=== PATIENT | male | born 1975 | race Caucasian/White ===

== ENCOUNTER → 2016-11-26 | Outpatient (REF) | payer MEDICARE, MEDICAID ==
[~2016-11-26] MED LIST: /HALO5TAB PO; ABIL400I IM; ADVAIR 100/50 INH; AMBI10TA; BENADRYL PO; BUSP10TA PO; CHLO0.129 SSP; COGE1INJ IJ; COGE1INJ PO; COGENTIN PD; COGENTIN PO; DEPA250T2 PO; DEPA250T32 PO; DEPA500T2 PO; EFFEXOR XR PO; ELIQ5TAB PO; FLOM5CAP PO; FLUO20CA8 PO; FLUO20CA9 PO; FLUP10TA PO; GABA600T PO; GEOD40CA OR; HALD100I2 IM; HALD5INJ2 PO; HALO10AM IM; HALO10TA4 OR; Haldol Decanoate IM; IBUP-1114 PO; KLON0.5T; LAMI50TA2 PO; LATU40TA PO; MULTCAP PO; NEUR600T PO; NICO2GUM8 PO; OMEP40CA2 PO; PERP4TA PO; PREV15CA OR; PREV30CA6 PO; PRIL20CA; PRIL20CA OR; PROP1TAB29 PO; PROP20TA5 PO; PROTONIX40 PO; PROZ20CA11 PO; PROZ40CA PO; RISP1TAB; RISP2TAB30 PO; RISP3TAB18 PO; RISP3TAB3 PO; RISP4TAB33 PO; RISPERDAL CONSTA; SERO50TA PO; SYNT25TA PO; TAB-TAB PO; TAMS0.4C2 PO; TRAV04OPD OU; TRAZ50TA OR; TRAZ50TA2 PO; TRAZ50TA4 PO; TRILAFON PO; VENL37TA PO; VENTAER IN; VIAGRA100 PO; VITA50TA12 OR; ZANT1TAB PO; ZANTAC150 PO; ZOCO10TA; ZOCO20TA; ZOCOR; ZOLO100T; ZOLO100T OR; ZOLO50TA OR; ZOLOFT PO; [UNRECOGNIZED DRUG - OTHER]; [UNRECOGNIZED DRUG - OTHER]; cogentin PO
== END ==
LOC: M LABDRAWC 11:16
PROVIDERS: ATTEND Nurse Practitioner Psychiatric/Mental Health
DX: Z51.81 Encounter for therapeutic drug level monitoring (principal); Z79.899 Other long term (current) drug therapy

== ENCOUNTER 2017-02-07 17:21 | Inpatient (IN) | payer MEDICARE, MEDICAID ==
[~2017-02-07] VITALS: Ht 170.2 cm; Wt 88.7 kg
[2017-02-07 18:57] LABS: MEAN CORPUSCULAR HEMOGLOBIN 30.2 pg (27.0-33.0); MEAN CORPUSCULAR HGB CONC 34.6 g/dl (32.0-36.5); MEAN CORPUSCULAR VOLUME 87.4 fl (80.0-96.0); RED CELL DISTRIBUTION WIDTH 12.9 % (11.5-14.5)
[2017-02-07 19:24] LABS: ALBUMIN 3.7 GM/DL (3.2-5.2); ALBUMIN/GLOBULIN RATIO 1.19 (1.00-1.93); ALKALINE PHOSPHATASE 64 U/L (45-117); ALT/SGPT 23 U/L (12-78); ANION GAP 6 MEQ/L (8-16); AST/SGOT 15 U/L (15-37); BILIRUBIN,DIRECT 0.2 MG/DL (0.0-0.2); BILIRUBIN,TOTAL 0.3 MG/DL (0.2-1.0); BLOOD UREA NITROGEN 10 MG/DL (7-18); CALCIUM LEVEL 8.4 MG/DL (8.5-10.1); CARBON DIOXIDE LEVEL 29 MEQ/L (21-32); CHLORIDE LEVEL 104 MEQ/L (98-107); GLOMERULAR FILTRATION RATE > 60.0 (>60); GLUCOSE, FASTING 103 MG/DL (70-105); POTASSIUM SERUM 4.1 MEQ/L (3.5-5.1); SODIUM LEVEL 139 MEQ/L (136-145); TOTAL PROTEIN 6.8 GM/DL (6.4-8.2)
[2017-02-07 20:15] LABS: METHADONE URINE NEGATIVE (NEGATIVE)
[2017-02-07] MEDS ORDERED: MOM 30ML SUSPENSION UDC PO PRN (23:30)
[2017-02-07] MEDS ORDERED: ACETAMINOPHEN TAB 650MG DOSE (2X325MG) PO PRN (23:30)
[2017-02-07] MEDS ORDERED: MAALOX 30 ML SUSP *UDC PO PRN (23:30)
[2017-02-07] MEDS ORDERED: traZODone 50 MG TAB PO PRN (23:30)
[2017-02-07] MEDS ORDERED: LORazepam 1 MG TAB PO PRN (23:30)
[2017-02-07] MEDS ORDERED: diphenhydrAMINE 25 MG CAP PO PRN (23:30)
[2017-02-07] MEDS ORDERED: HALOPERIDOL 5 MG TAB PO PRN (23:30)
[2017-02-08] MEDS ORDERED: LATU80TA PO (00:46)
[2017-02-08] MEDS ORDERED: TRAV04OPD OU (00:46)
[2017-02-08] MEDS ORDERED: DIVA250T PO (00:46)
[2017-02-08] MEDS ORDERED: FLUO1TAB3 PO (00:46)
[2017-02-08 03:00] VITALS: BP 119/80
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
[2017-02-08 18:00] VITALS: BP 128/64
[2017-02-08] MEDS: LATANOPROST 0.005% OPHTH SOLN 2.5 ML OU SCH (20:57)
[2017-02-08] MEDS ORDERED: DIVALPROEX 250MG *ER* TAB PO SCH (21:00)
[2017-02-08] MEDS: LURASIDONE HCL 40 MG TAB (LATUDA) PO SCH (21:16)
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
[2017-02-08] MEDS: DIVALPROEX 250 MG TAB PO SCH (21:48)
[2017-02-09 06:31] VITALS: BP 116/67
[2017-02-09] MEDS: DIVALPROEX 250 MG TAB PO SCH ×2 (08:42→21:13)
[2017-02-09] MEDS: FLUoxetine 20 MG CAP PO SCH (08:42)
--- NOTE | 2017-02-09 09:48 | ECGEPIP ---
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
--- NOTE | 2017-02-09 15:38 | IPN ---
DATE: 02/09/2017 I met Brandt Bar today and reviewed his history. As per Grecia Byrnes, he states to me he was at transitional living, and he states he was brought in here for yelling and arguing with staff. He has complaints about the staff at the [facility] in [place] and some of the patients. He states he is presently on Depakote and Latuda, as well as fluoxetine and likes his medications. MENTAL STATUS EXAMINATION: He has rapid speech and loose associations. He is denying hallucinations, delusions, obsessions, compulsions and phobias. He states he has been verbally aggressive and does not want mormon crammed down his throat. His speech is loud. His thought process shows loose associations. He is not complaining of any hallucinations or delusions. Judgment and insight are fair. He is fully oriented. Remote and recent memory are intact. Attention and concentration are good. His fund of knowledge is intact. His mood seems high. His affect seems neutral to bright. No change in medication at this time, though it is possible that Prozac may have to be held. I will discuss this with Grecia Byrnes when she returns. DIAGNOSIS: Bipolar disorder with psychotic features.
[2017-02-09] MEDS: LURASIDONE HCL 40 MG TAB (LATUDA) PO SCH (17:43)
[2017-02-09 18:00] VITALS: BP 125/62
[2017-02-09] MEDS: LATANOPROST 0.005% OPHTH SOLN 2.5 ML OU SCH (21:13)
[2017-02-10 06:23] VITALS: BP 103/55
[2017-02-10] MEDS: DIVALPROEX 250 MG TAB PO SCH ×2 (08:14→21:28)
[2017-02-10] MEDS: FLUoxetine 20 MG CAP PO SCH (08:14)
--- NOTE | 2017-02-10 10:23 | IPN ---
DATE: 02/10/2017 Reviewed his history yesterday and talked with him today. He is mostly walking the halls. His mood is good. He is mostly interested in having a change of living situation. MENTAL STATUS EXAMINATION: His speech is somewhat rapid. He denies hallucinations or delusions, obsessions, compulsions and phobias. His speech is mildly increased in volume. His thought process shows some loose associations. His judgment and insight are fair. He is fully oriented. His remote and recent memory are intact. Attention and concentration are good. No change in medication was seen to be made at this time. He continues on fluoxetine 20 mg, Depakote 750 mg twice a day, Latuda 80 mg daily. DIAGNOSIS: Schizophrenia. History of polysubstance use disorder.
[2017-02-10] MEDS: LURASIDONE HCL 40 MG TAB (LATUDA) PO SCH (17:59)
[2017-02-10 18:00] VITALS: BP 121/61
[2017-02-10] MEDS: LATANOPROST 0.005% OPHTH SOLN 2.5 ML OU SCH (21:28)
[2017-02-11 06:16] VITALS: BP 125/63
[2017-02-11] MEDS: FLUoxetine 20 MG CAP PO SCH (07:58)
[2017-02-11] MEDS: DIVALPROEX 250 MG TAB PO SCH ×2 (07:58→21:51)
--- NOTE | 2017-02-11 09:33 | IPN ---
DATE: 02/11/2017 I spoke with Brandt Bar today. He continues to walk the halls. His mood is good. He continues to be interested in having a change of living situation and has no other complaint at this time. Eye contact is variable. MENTAL STATUS EXAMINATION: He continues to look somewhat disheveled. He is in hospital garb. His speech continues mildly rapid. He is presently denying hallucinations, delusions, obsessions, compulsions, and phobias. He does not appear to be responding to internal stimuli. His speech is of normal volume. His thought process does not show any loose associations at this time. Judgment and insight are fair. He is fully oriented. His remote and recent memory are intact. His attention and concentration are good. I have no plans to change his medication. He continues on fluoxetine 20 mg, Depakote 70 mg twice a day, Latuda 80 mg daily. DIAGNOSIS: Schizophrenia. Rule out schizoaffective disorder. History of polysubstance use disorder. MTDD
[2017-02-11 18:00] VITALS: BP 123/86
[2017-02-11] MEDS: LURASIDONE HCL 40 MG TAB (LATUDA) PO SCH (18:16)
[2017-02-11] MEDS: LATANOPROST 0.005% OPHTH SOLN 2.5 ML OU SCH (21:51)
[2017-02-12 06:42] VITALS: BP 111/72
[2017-02-12] MEDS: DIVALPROEX 250 MG TAB PO SCH ×2 (09:00→21:57)
[2017-02-12] MEDS: FLUoxetine 20 MG CAP PO SCH (09:01)
[2017-02-12] MEDS: LURASIDONE HCL 40 MG TAB (LATUDA) PO SCH (18:01)
[2017-02-12 18:20] VITALS: BP 132/82
[2017-02-12] MEDS: LATANOPROST 0.005% OPHTH SOLN 2.5 ML OU SCH (21:57)
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
[2017-02-13 06:19] VITALS: BP 119/68
[2017-02-13] MEDS: DIVALPROEX 250 MG TAB PO SCH ×2 (09:16→22:46)
[2017-02-13] MEDS: FLUoxetine 20 MG CAP PO SCH (09:16)
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
[2017-02-13 18:00] VITALS: BP 146/68
[2017-02-13] MEDS: LURASIDONE HCL 40 MG TAB (LATUDA) PO SCH (18:57)
[2017-02-13] MEDS: LATANOPROST 0.005% OPHTH SOLN 2.5 ML OU SCH (22:46)
[2017-02-14 06:14] VITALS: BP 134/74
[2017-02-14] MEDS: DIVALPROEX 250 MG TAB PO SCH ×2 (08:02→20:21)
[2017-02-14] MEDS: FLUoxetine 20 MG CAP PO SCH (08:02)
[2017-02-14 18:00] VITALS: BP 129/76
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
[2017-02-14] MEDS: LURASIDONE HCL 40 MG TAB (LATUDA) PO SCH (18:55)
[2017-02-14] MEDS: LATANOPROST 0.005% OPHTH SOLN 2.5 ML OU SCH (20:22)
[2017-02-15] MEDS: FLUoxetine 20 MG CAP PO SCH (08:02)
[2017-02-15] MEDS: DIVALPROEX 250 MG TAB PO SCH ×2 (08:03→21:49)
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
[2017-02-15] MEDS: LURASIDONE HCL 40 MG TAB (LATUDA) PO SCH (17:59)
[2017-02-15 18:00] VITALS: BP 122/75
[2017-02-15] MEDS: LATANOPROST 0.005% OPHTH SOLN 2.5 ML OU SCH (21:50)
[2017-02-16 06:00] VITALS: BP 131/76
[2017-02-16] MEDS: DIVALPROEX 250 MG TAB PO SCH ×2 (08:30→22:01)
[2017-02-16] MEDS: FLUoxetine 20 MG CAP PO SCH (08:30)
[2017-02-16] MEDS: LURASIDONE HCL 40 MG TAB (LATUDA) PO SCH (17:45)
[2017-02-16 18:00] VITALS: BP 132/58
[2017-02-16] MEDS: LATANOPROST 0.005% OPHTH SOLN 2.5 ML OU SCH (22:01)
[2017-02-17 06:36] VITALS: BP 126/75
[2017-02-17] MEDS: FLUoxetine 20 MG CAP PO SCH (08:29)
[2017-02-17] MEDS: DIVALPROEX 250 MG TAB PO SCH ×2 (08:29→21:32)
[2017-02-17] MEDS: LURASIDONE HCL 40 MG TAB (LATUDA) PO SCH (17:41)
[2017-02-17 18:00] VITALS: BP 125/75
[2017-02-17] MEDS: LATANOPROST 0.005% OPHTH SOLN 2.5 ML OU SCH (21:32)
[2017-02-18 06:47] VITALS: BP 136/63
[2017-02-18] MEDS: FLUoxetine 20 MG CAP PO SCH (08:25)
[2017-02-18] MEDS: DIVALPROEX 250 MG TAB PO SCH (08:25)
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
[2017-02-18] MEDS ORDERED: FLUO20CA9 PO (12:34)
[2017-02-18] MEDS ORDERED: LATU40TA PO (12:34)
[2017-02-18] MEDS ORDERED: DEPA250T32 PO (12:34)
== END 2017-02-18 13:45 | disposition home or self-care (01) | DRG 885 ==
LOC: M ED 18:16 → M ED INP 23:24 → M PSY 02-08 02:58
PROVIDERS: ADMIT Psychiatry & Neurology Child & Adolescent Psychiatry; ATTEND Internal Medicine Addiction Medicine
DX: F20.9 Schizophrenia, unspecified (principal); F17.210 Nicotine dependence, cigarettes, uncomplicated; Z63.4 Disappearance and death of family member; H40.9 Unspecified glaucoma; K21.9 Gastro-esophageal reflux disease without esophagitis; E78.5 Hyperlipidemia, unspecified; N40.0 Benign prostatic hyperplasia without lower urinary tract symptoms; G47.33 Obstructive sleep apnea (adult) (pediatric); M25.50 Pain in unspecified joint; Z79.899 Other long term (current) drug therapy; Z91.018 Allergy to other foods; Z86.711 Personal history of pulmonary embolism; Z81.1 Family history of alcohol abuse and dependence; Z81.8 Family history of other mental and behavioral disorders

== ENCOUNTER 2017-03-11 10:23 | Inpatient (IN) | payer MEDICARE, MEDICAID ==
[~2017-03-11] VITALS: Ht 170.2 cm; Wt 82.3 kg
[~2017-03-11 10:23] MED LIST changes: +DIVA250T PO; +FLUO1TAB3 PO; +LATU80TA PO
[2017-03-11 10:59] LABS: MEAN CORPUSCULAR HGB CONC 33.6 g/dl (32.0-36.5); MEAN CORPUSCULAR VOLUME 89.2 fl (80.0-96.0); RED CELL DISTRIBUTION WIDTH 12.8 % (11.5-14.5); WHITE BLOOD COUNT 6.1 K/mm3 (4.0-10.0)
[2017-03-11 11:14] LABS: METHADONE URINE NEGATIVE (NEGATIVE)
[2017-03-11 11:25] LABS: ALBUMIN 3.4 GM/DL (3.2-5.2); ALBUMIN/GLOBULIN RATIO 1.36 (1.00-1.93); ALKALINE PHOSPHATASE 45 U/L (45-117); ALT/SGPT 27 U/L (12-78); ANION GAP 9 MEQ/L (8-16); AST/SGOT 26 U/L (15-37); BILIRUBIN,DIRECT 0.2 MG/DL (0.0-0.2); BILIRUBIN,TOTAL 0.6 MG/DL (0.2-1.0); BLOOD UREA NITROGEN 5 MG/DL (7-18); CARBON DIOXIDE LEVEL 25 MEQ/L (21-32); CHLORIDE LEVEL 99 MEQ/L (98-107); CREATININE FOR GFR 0.78 MG/DL (0.70-1.30); GLOMERULAR FILTRATION RATE > 60.0 (>60); GLUCOSE, FASTING 77 MG/DL (70-105); POTASSIUM SERUM 3.9 MEQ/L (3.5-5.1); SODIUM LEVEL 133 MEQ/L (136-145); TOTAL PROTEIN 5.9 GM/DL (6.4-8.2)
[2017-03-11] MEDS ORDERED: HYDR1CAP25 PO (13:57)
[2017-03-11] MEDS ORDERED: LATU80TA PO (13:57)
[2017-03-11] MEDS ORDERED: FLUO20CA8 PO (13:57)
[2017-03-11] MEDS ORDERED: IBUP40TA PO (13:57)
[2017-03-11] MEDS ORDERED: DIVA250T PO (13:57)
[2017-03-11] MEDS ORDERED: LAMI25TA PO (13:57)
[2017-03-11 16:29] VITALS: BP 113/63
[2017-03-11] MEDS ORDERED: IBUPROFEN 400 MG TAB PO PRN (17:45)
[2017-03-11] MEDS ORDERED: hydrOXYzine 25 MG TAB PO PRN (17:45)
[2017-03-11] MEDS ORDERED: MAALOX 30 ML SUSP *UDC PO PRN (17:45)
[2017-03-11] MEDS ORDERED: traZODone 50 MG TAB PO PRN (17:45)
[2017-03-11] MEDS ORDERED: MOM 30ML SUSPENSION UDC PO PRN (17:45)
[2017-03-11] MEDS ORDERED: LURASIDONE HCL 40 MG TAB (LATUDA) PO SCH (18:00)
[2017-03-11] MEDS ORDERED: lamoTRIgine 25 MG TAB PO SCH (21:00)
[2017-03-11] MEDS: DIVALPROEX 250 MG TAB PO SCH (21:30)
[2017-03-11] MEDS: LATANOPROST 0.005% OPHTH SOLN 2.5 ML OU SCH (21:30)
[2017-03-12 06:50] VITALS: BP 110/64
[2017-03-12] MEDS: DIVALPROEX 250 MG TAB PO SCH ×2 (09:00→21:55)
[2017-03-12] MEDS: FLUoxetine 20 MG CAP PO SCH (09:11)
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
[2017-03-12] MEDS: CHLORHEXIDINE GLUCONATE 0.12 % 15ML UDC (PERIDEX ORAL RINSE) SSP SCH ×3 (11:30→21:56)
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
[2017-03-12] MEDS ORDERED: BENZTROPINE 1 MG TAB PO PRN (16:30)
[2017-03-12 18:00] VITALS: BP 135/72
[2017-03-12] MEDS ORDERED: LURASIDONE HCL 40 MG TAB (LATUDA) PO SCH (18:00)
[2017-03-12] MEDS ORDERED: PERPHENAZINE 2 MG TAB PO SCH (21:00)
[2017-03-12] MEDS: LATANOPROST 0.005% OPHTH SOLN 2.5 ML OU SCH (21:56)
[2017-03-12] MEDS: PERPHENAZINE 2 MG TAB PO SCH (21:56)
[2017-03-13 06:31] VITALS: BP 110/58
[2017-03-13] MEDS: DIVALPROEX 250 MG TAB PO SCH ×2 (09:00→21:00)
[2017-03-13] MEDS: FLUoxetine 20 MG CAP PO SCH (09:07)
[2017-03-13] MEDS: CHLORHEXIDINE GLUCONATE 0.12 % 15ML UDC (PERIDEX ORAL RINSE) SSP SCH ×3 (09:08→21:42)
--- NOTE | 2017-03-13 11:02 | IPNPDOC ---
[facility] Progress Note Progress Note DATE OF SERVICE: 03/13/17 HISTORY: Day 2 of admission, pt refused a.m. Depakote. did take Depakote last night. VITAL SIGNS: See below. NEW TEST RESULTS: CURRENT MEDICATIONS: See below. MENTAL STATUS EXAMINATION: Patient is a 41-year old male, who is refusing his Maintena shot which is ordered via AOT. bearded, lots of pinto hair. Speech: Is rapid Language skills are adequate Thought processes is circumstantial and tangential Thought content: "Im not taking any shot. My superintendent seed mill says I am not obligated to take any medication. Send me to [facility]". Abstract reasoning, and computation: poor. Description of associations: adequate Description of abnormal or psychotic thoughts: Judgment: poor Insight: poor. Orientation: oriented to person and place. Recent and remote memory: distorted. Attention span and concentration: poor, terminated conversation when it did not go as he would have liked. Fund of knowledge: adequate Mood: anxious Affect: paranoid. DIAGNOSES: 1. 1. Schizophrenia, paranoid type. 2. HTN 3. hyperlipidemia 4. Glaucoma 5. Joint pain, chronic 6. Nicotine dependence 7. Poor dentition 8. h/o Pulmonary embolis in May 2016 ASSESSMENT:General Cleaner attempted to review AOT with pt. Discussed all the meds that were listed as contingencies. Pt is concerned about Lamictal which will not play a primary role in his attitude and treatment of others. It certainly will not improve his paranoid and deluded thinking. Pt was warned not to refuse all his Depakote because if he stops it abruptly he could have a seizure. He indicated he understood this. MANAGEMENT PLAN: Will plan a meeting with his warehouse manager Aditi who has known him for several years and may have some influence with him. AOT staff member will be asked to attend as well. Will work on convincing pt to resume the injectable as he is clearly unstable and has done well on the medication in the past. He may have done so well that when the staff at [facility] recommended a more independent living situation he may have panicked. General Cleaner talked with Suzette ye T who faxed the consent order for continuation of care purposes. They are working on extending the consent agreement as it did last month. They anticipate a court date this week. Pt agrees to be calm and under control while on the unit. Perphenazine ordered as it was the one antipsychotic he said he would take. He agreed to take Latuda IM but it is not available IM. He is continuing to take it at 60 mg. Latuda was lowered when perphenazine was added. TIME SPENT: 25 minutes. Vital Signs Vital Signs Date Time Temp Pulse Resp B/P (MAP) Pulse Ox O2 Delivery O2 Flow Rate FiO2 03/13/17 06:31 97.4 52 16 110/58 (75) Room Air 03/11/17 16:29 96 Current Medications Current Medications Al Hydrox/Mg Hydrox/Simethicone (Mylanta) 30 ml Q4HP PRN PO HEARTBURN/ INDIGESTION; Start 03/11/17 at 17:45; Stop 04/10/17 at 17:44 Benztropine Mesylate (Cogentin) 1 mg BIDP PRN PO eps; Start 03/12/17 at 16:30; Stop 04/11/17 at 16:29 Chlorhexidine Gluconate (Peridex Oral Rinse) 15 ml TID SSP Last administered on 03/13/17 09:08; Start 03/12/17 at 09:00; Stop 04/11/17 at 08:59 Divalproex Sodium (Depakote) 750 mg BID PO Last administered on 03/12/17 21:55 ; Start 03/11/17 at 21:00; Stop 04/10/17 at 20:59 Fluoxetine HCl (PROzac) 20 mg QAM PO Last administered on 03/13/17 09:07; Start 03/12/17 at 09:00; Stop 04/11/17 at 08:59 Home Med (Med Rec Complete!) ASDIRECTED XX ; Start 03/11/17 at 14:00; Stop at 14:00; Status DC Hydroxyzine HCl (Atarax) 25 mg DAILYPRN PRN PO ANXIETY/AGITATION; Start at 17:45; Stop 04/10/17 at 17:44 Ibuprofen (Advil) 400 mg BIDP PRN PO PAIN; Start 03/11/17 at 17:45; Stop at 17:44 Lamotrigine (LaMICtal) 12.5 mg QHS PO Last administered on 03/11/17 21:29; Start 03/11/17 at 21:00; Stop 03/12/17 at 16:36; Status DC Latanoprost (Xalatan 0.005% Op Soln) 1 drop QHS OU Last administered on 21:56; Start 03/11/17 at 21:00; Stop 04/10/17 at 20:59 Lurasidone HCl (Latuda) 60 mg DAILY@18 PO Last administered on 03/12/17 17:52 ; Start 03/12/17 at 18:00; Stop 04/11/17 at 17:59 Lurasidone HCl (Latuda) 80 mg DAILY@18 PO Last administered on 03/11/17 18:42 ; Start 03/11/17 at 18:00; Stop 03/12/17 at 16:39; Status DC Magnesium Hydroxide (Milk Of Magnesia) 30 ml DAILYPRN PRN PO CONSTIPATION; Start 03/11/17 at 17:45; Stop 04/10/17 at 17:44 Perphenazine (Trilafon) 4 mg BID PO ; Start 03/12/17 at 21:00; Stop 03/12/17 at 21:00; Status DC Perphenazine (Trilafon) 4 mg QHS PO Last administered on 03/12/17 21:56; Start 03/12/17 at 21:00; Stop 04/11/17 at 20:59 Trazodone HCl (Desyrel) 50 mg QHSP PRN PO INSOMNIA; Start 03/11/17 at 17:45; Stop 04/10/17 at 17:44 Allergies Coded Allergies: Mirella (Verified Allergy, Unknown, 02/10/08) Idania Abrams Mar 13, 2017 11:02
[2017-03-13 18:00] VITALS: BP 124/68
[2017-03-13] MEDS ORDERED: LURASIDONE 20 MG TAB (LATUDA) PO SCH (18:00)
[2017-03-13] MEDS: PERPHENAZINE 2 MG TAB PO SCH (21:42)
[2017-03-13] MEDS: LATANOPROST 0.005% OPHTH SOLN 2.5 ML OU SCH (21:42)
[2017-03-14 06:16] VITALS: BP 123/70
[2017-03-14] MEDS: DIVALPROEX 250 MG TAB PO SCH (08:04)
[2017-03-14] MEDS: FLUoxetine 20 MG CAP PO SCH (08:05)
[2017-03-14] MEDS: CHLORHEXIDINE GLUCONATE 0.12 % 15ML UDC (PERIDEX ORAL RINSE) SSP SCH ×3 (08:05→21:42)
--- NOTE | 2017-03-14 11:25 | IPNPDOC ---
[facility] Progress Note Progress Note DATE OF SERVICE: 03/14/17 HISTORY: Day 4 of admission. Pt improving. TP clearing. VITAL SIGNS: See below. NEW TEST RESULTS: na CURRENT MEDICATIONS: See below. MENTAL STATUS EXAMINATION: Patient is a 41 year old male, who is interviewed in the office on unit, dressed in hospital attired, disheveled in appearance. Speech: Is spontaneous. Language skills echolalia Thought processes including: flight of ideas, tangential, non-coherent Thought content: son, [facility] housing and staff, medications. Abstract reasoning, and computation: poor Description of associations: adequate. Description of abnormal or psychotic thoughts: denies suicidal thoughts and homicidal thoughts. Denies voices or hallucinations of any kind Judgment: poor Insight: limited. Orientation: oriented to person, place and situation. Recent and remote memory: intact Attention span and concentration: good attention, concentration impaired due to thought process problems.. Fund of knowledge: impaired Mood: euthymic Affect: blunted DIAGNOSES: 1. Paranoid schizophrenia, chronic 2. 3. ASSESSMENT:pt was able to participate in a discussion about his medication for about 60 mins. He is now willing to consider the abilify maintena but is not thoroughly convinced. We discussed the convenience of a shot q 21 days versus taking oral meds. He states that his libido is increased when he on the Maintena and asked if somehow this can be modulated. I explained the benefits of depakote for impulse control. He listened attentively. While he is considering his long-term plan, we decided to increase the perphenzine now to bid as pt states his thoughts are getting clearer since he has been taking it. We will change depakote to 500 mg bid, and continue latuda at 60 mg. We will see how this works for him. His prozac would continue. Our goal if he agrees to Maintena is to reduce perphenazine to 2 mg bid or make it prn. Pt is attending groups and participating in unit activities. MANAGEMENT PLAN: Medication adjustments initiated today. Monitor for effectiveness/side effects. Continue medication education. Meeting planned with house carpenter helper, AOT personnel and his sports lawyer tomorrow. TIME SPENT: 60 minutes. Vital Signs Vital Signs Date Time Temp Pulse Resp B/P (MAP) Pulse Ox O2 Delivery O2 Flow Rate FiO2 03/14/17 06:16 97.1 55 18 123/70 (87) Room Air 03/11/17 16:29 96 Current Medications Current Medications Al Hydrox/Mg Hydrox/Simethicone (Mylanta) 30 ml Q4HP PRN PO HEARTBURN/ INDIGESTION; Start 03/11/17 at 17:45; Stop 04/10/17 at 17:44 Benztropine Mesylate (Cogentin) 1 mg BIDP PRN PO eps; Start 03/12/17 at 16:30; Stop 04/11/17 at 16:29 Chlorhexidine Gluconate (Peridex Oral Rinse) 15 ml TID SSP Last administered on 03/14/17 08:05; Start 03/12/17 at 09:00; Stop 04/11/17 at 08:59 Divalproex Sodium (Depakote) 750 mg BID PO Last administered on 03/14/17 08:04 ; Start 03/11/17 at 21:00; Stop 04/10/17 at 20:59 Fluoxetine HCl (PROzac) 20 mg QAM PO Last administered on 03/14/17 08:05; Start 03/12/17 at 09:00; Stop 04/11/17 at 08:59 Home Med (Med Rec Complete!) ASDIRECTED XX ; Start 03/11/17 at 14:00; Stop at 14:00; Status DC Hydroxyzine HCl (Atarax) 25 mg DAILYPRN PRN PO ANXIETY/AGITATION; Start at 17:45; Stop 04/10/17 at 17:44 Ibuprofen (Advil) 400 mg BIDP PRN PO PAIN; Start 03/11/17 at 17:45; Stop at 17:44 Lamotrigine (LaMICtal) 12.5 mg QHS PO Last administered on 03/11/17 21:29; Start 03/11/17 at 21:00; Stop 03/12/17 at 16:36; Status DC Latanoprost (Xalatan 0.005% Op Soln) 1 drop QHS OU Last administered on 21:42; Start 03/11/17 at 21:00; Stop 04/10/17 at 20:59 Lurasidone HCl (Latuda) 20 mg DAILY@18 PO ; Start 4/27/17 at 18:00; Stop at 17:59 Lurasidone HCl (Latuda) 40 mg DAILY@18 PO ; Start 03/14/17 at 18:00; Stop at 17:59 Lurasidone HCl (Latuda) 60 mg DAILY@18 PO Last administered on 03/12/17 17:52 ; Start 03/12/17 at 18:00; Stop 03/13/17 at 15:55; Status DC Lurasidone HCl (Latuda) 60 mg DAILY@18 PO Last administered on 03/13/17 17:58 ; Start 03/13/17 at 18:00; Stop 03/14/17 at 08:53; Status DC Lurasidone HCl (Latuda) 80 mg DAILY@18 PO Last administered on 03/11/17 18:42 ; Start 03/11/17 at 18:00; Stop 03/12/17 at 16:39; Status DC Magnesium Hydroxide (Milk Of Magnesia) 30 ml DAILYPRN PRN PO CONSTIPATION; Start 03/11/17 at 17:45; Stop 04/10/17 at 17:44 Perphenazine (Trilafon) 4 mg BID PO ; Start 03/12/17 at 21:00; Stop 03/12/17 at 21:00; Status DC Perphenazine (Trilafon) 4 mg QHS PO Last administered on 03/13/17 21:42; Start 03/12/17 at 21:00; Stop 04/11/17 at 20:59 Trazodone HCl (Desyrel) 50 mg QHSP PRN PO INSOMNIA; Start 03/11/17 at 17:45; Stop 04/10/17 at 17:44 Allergies Coded Allergies: Mirella (Verified Allergy, Unknown, 02/10/08) Idania Abrams Mar 14, 2017 11:25
[2017-03-14 18:00] VITALS: BP 112/58
[2017-03-14] MEDS ORDERED: LURASIDONE 20 MG TAB (LATUDA) PO SCH (18:00)
[2017-03-14] MEDS ORDERED: LURASIDONE HCL 40 MG TAB (LATUDA) PO SCH (18:00)
[2017-03-14] MEDS: PERPHENAZINE 2 MG TAB PO SCH (21:42)
[2017-03-14] MEDS: DIVALPROEX 500 MG TAB PO SCH (21:42)
[2017-03-14] MEDS: LATANOPROST 0.005% OPHTH SOLN 2.5 ML OU SCH (21:42)
[2017-03-15 06:38] VITALS: BP 127/63
[2017-03-15] MEDS ORDERED: ARIPiprazole MONOHYDRATE 400 MG INJ (ABILIFY)(J0401) IM SCH ×2 (09:00→11:45)
[2017-03-15] MEDS: FLUoxetine 20 MG CAP PO SCH (09:15)
[2017-03-15] MEDS: DIVALPROEX 500 MG TAB PO SCH ×2 (09:15→21:24)
[2017-03-15] MEDS: CHLORHEXIDINE GLUCONATE 0.12 % 15ML UDC (PERIDEX ORAL RINSE) SSP SCH ×3 (09:16→21:24)
[2017-03-15] MEDS: PERPHENAZINE 2 MG TAB PO SCH ×2 (09:16→21:24)
--- NOTE | 2017-03-15 11:14 | IPNPDOC ---
Subjective Date Seen The patient was seen on 03/15/17. Subjective Chief Complaint/HPI The patient is a 41-year-old male admitted with a reason for visit of Chronic Schizophrenia. Events since last encounter Patient was lying down resting in bed flat. Patient states he has lower extremity weakness. Some pain in the left lower extremity. No edema, no erythema. He is getting in and out of bed without any difficulty. He has been ambulating in the hallways. He denies any chest heaviness, tightness, or pressure. Denies shortness of breath, dyspnea, orthopnea or PND. Denies any neck pain, low back pain. Objective Physical Examination General Exam: Positive: Alert Eye Exam: Positive: PERRLA ENT Exam: Positive: Atraumatic Neck Exam: Positive: Supple Chest Exam: Positive: Clear to auscultation, Normal air movement Heart Exam: Positive: Rate Normal, Regular Rhythm, Normal S1, Normal S2, Negative: Murmurs, Rubs Abdomen Exam: Positive: Normal bowel sounds Skin Exam: Positive: Nl turgor and temperature, Other skin issue (no lower extremity tenderness with palpation, erythema, edema, negative Homans.) Assessment /Plan Problems (1) Abnormal TSH Problem Text: * recheck TFT. (2) Hyponatremia Problem Text: * 133 03/11. * Recheck CMP (3) Lower extremity pain Problem Text: * Check labs including CMP, CBC, thyroid profile, and Depakote level. * Check ultrasound of bilateral lower extremities. Plan/VTE VTE Prophylaxis Ordered?: No (ambulatory) Disposition As per attending VS, I&O, 24H, Fishbone Vital Signs/I&O Vital Signs Date Time Temp Pulse Resp B/P (MAP) Pulse Ox O2 Delivery O2 Flow Rate FiO2 03/15/17 06:38 97.7 56 20 127/63 (84) Room Air 03/11/17 16:29 96 Bri Morris Mar 15, 2017 11:14
[2017-03-15 12:21] LABS: MEAN CORPUSCULAR HEMOGLOBIN 30.9 pg (27.0-33.0); MEAN CORPUSCULAR HGB CONC 34.3 g/dl (32.0-36.5); RED CELL DISTRIBUTION WIDTH 12.9 % (11.5-14.5); WHITE BLOOD COUNT 7.6 K/mm3 (4.0-10.0)
[2017-03-15 13:08] LABS: ALBUMIN 3.7 GM/DL (3.2-5.2); ALBUMIN/GLOBULIN RATIO 1.23 (1.00-1.93); ALKALINE PHOSPHATASE 98 U/L (45-117); ALT/SGPT 29 U/L (12-78); ANION GAP 5 MEQ/L (8-16); AST/SGOT 19 U/L (15-37); BILIRUBIN,TOTAL 0.3 MG/DL (0.2-1.0); BLOOD UREA NITROGEN 11 MG/DL (7-18); CALCIUM LEVEL 8.6 MG/DL (8.5-10.1); CARBON DIOXIDE LEVEL 29 MEQ/L (21-32); CHLORIDE LEVEL 102 MEQ/L (98-107); CREATININE FOR GFR 0.81 MG/DL (0.70-1.30); GLOMERULAR FILTRATION RATE > 60.0 (>60); GLUCOSE, FASTING 120 MG/DL (70-105); POTASSIUM SERUM 4.6 MEQ/L (3.5-5.1); SODIUM LEVEL 136 MEQ/L (136-145); T UPTAKE 34 % (33-40); THYROXINE (T4) 7.6 UG/DL (4.5-12.0); TOTAL PROTEIN 6.7 GM/DL (6.4-8.2)
--- NOTE | 2017-03-15 13:24 | IPNPDOC ---
[facility] Progress Note Progress Note DATE OF SERVICE: 03/15/17 HISTORY: Day 5 of admission. Discharge planning meeting held. VITAL SIGNS: See below. NEW TEST RESULTS: pending depakote level CURRENT MEDICATIONS: See below. MENTAL STATUS EXAMINATION: Patient is a 41-year old male, who is wearing a plaid shirt and pj bottoms, hair tied back, pleasant. Speech: Is fluent Language skills are good. Thought processes including: flight of ideas with loose associations Thought content: paranoia, persecution, housing, medication Abstract reasoning, and computation: fair. Description of associations: good Description of abnormal or psychotic thoughts: fears about staff at [facility], irrational attributes of medication. Denies psychotic symptoms. Judgment: fair Insight: very limited Orientation: oriented x 3 Recent and remote memory: good Attention span and concentration: adequate Fund of knowledge: impaired Mood: euthymic. Affect: anxious. DIAGNOSES: 1. Paranoid schizophrenia, chronic 2. 3. ASSESSMENT:Pt participated in discharge planning meeting with Aditi from [facility], JESSE from [facility], Suzette from [facility] and Kateryna, piped pocket machine operator. Kateryna was instrumental in pointing out to Brandt that he had far fewer hospitalizations when he was on the long acting abilify injection versus po meds. He had to agree that this is so. His [facility] staff reports a decline in Brandt's ability to get along with staff and peers at his residence since the injections stopped in August 2016. Brandt apologized to Aditi for his behavior prior to this admission. He also made his concerns known regarding [facility] staff. Aditi assured him his concerns would be addressed. Brandt is ambivalent about returning to that location but will work with the staff on a new location if he decides he wants to move. Staff have assisted him in this aspect before but Brandt would always find a a barrier to prevent his leaving. Change is very hard for him. Brandt has reconsidered the Maintena and wants to resume the medication. He wants the perphenazine left in place to help "my libido". I will lower the perphenazine on Saturday, March 18. MANAGEMENT PLAN: obtain depakote level tomorrow 03/16. hold a.m. dose of depakote on 03/16 only. Order written to hortencia rodas. Administer Abilify Maintena 400 mg IM q 4 weeks. continue observational status, continue therapeutic milieu. Monitor for side effects to medications and progress with improving thought process. TIME SPENT: 50 minutes. Vital Signs Vital Signs Date Time Temp Pulse Resp B/P (MAP) Pulse Ox O2 Delivery O2 Flow Rate FiO2 03/15/17 06:38 97.7 56 20 127/63 (84) Room Air 03/11/17 16:29 96 Laboratory Data 24H Labs Laboratory Tests 2 03/15/17 12:00: CBC/BMP Laboratory Tests 03/15/17 12:00 Red Blood Count 4.96, Mean Corpuscular Volume 90.0, Mean Corpuscular Hemoglobin 30.9, Mean Corpuscular Hemoglobin Concent 34.3, Red Cell Distribution Width 12.9 Current Medications Current Medications Al Hydrox/Mg Hydrox/Simethicone (Mylanta) 30 ml Q4HP PRN PO HEARTBURN/ INDIGESTION; Start 03/11/17 at 17:45; Stop 04/10/17 at 17:44 Aripiprazole (Abilify Maintena) 400 mg Q30D IM ; Start 03/15/17 at 11:45; Stop 03/15/17 at 11:49; Status DC Aripiprazole (Abilify Maintena) 400 mg Q30D@0900 IM Last administered on 12:17; Start 03/15/17 at 09:00; Stop 04/14/17 at 08:59 Benztropine Mesylate (Cogentin) 1 mg BIDP PRN PO eps; Start 03/12/17 at 16:30; Stop 04/11/17 at 16:29 Chlorhexidine Gluconate (Peridex Oral Rinse) 15 ml TID SSP Last administered on 03/15/17 09:16; Start 03/12/17 at 09:00; Stop 04/11/17 at 08:59 Divalproex Sodium (Depakote) 500 mg BID PO Last administered on 03/15/17 09:15 ; Start 03/14/17 at 21:00; Stop 03/15/17 at 22:00 Divalproex Sodium (Depakote) 750 mg BID PO Last administered on 03/14/17 08:04 ; Start 03/11/17 at 21:00; Stop 03/14/17 at 11:12; Status DC Fluoxetine HCl (PROzac) 20 mg QAM PO Last administered on 03/15/17 09:15; Start 03/12/17 at 09:00; Stop 04/11/17 at 08:59 Home Med (Med Rec Complete!) ASDIRECTED XX ; Start 03/11/17 at 14:00; Stop at 14:00; Status DC Hydroxyzine HCl (Atarax) 25 mg DAILYPRN PRN PO ANXIETY/AGITATION; Start at 17:45; Stop 04/10/17 at 17:44 Ibuprofen (Advil) 400 mg BIDP PRN PO PAIN; Start 03/11/17 at 17:45; Stop at 17:44 Lamotrigine (LaMICtal) 12.5 mg QHS PO Last administered on 03/11/17 21:29; Start 03/11/17 at 21:00; Stop 03/12/17 at 16:36; Status DC Latanoprost (Xalatan 0.005% Op Soln) 1 drop QHS OU Last administered on 21:42; Start 03/11/17 at 21:00; Stop 04/10/17 at 20:59 Lurasidone HCl (Latuda) 20 mg DAILY@18 PO Last administered on 03/14/17 18:27 ; Start 03/14/17 at 18:00; Stop 03/15/17 at 11:44; Status DC Lurasidone HCl (Latuda) 40 mg DAILY@18 PO Last administered on 03/14/17 18:27 ; Start 03/14/17 at 18:00; Stop 03/15/17 at 11:44; Status DC Lurasidone HCl (Latuda) 60 mg DAILY@18 PO Last administered on 03/12/17 17:52 ; Start 03/12/17 at 18:00; Stop 03/13/17 at 15:55; Status DC Lurasidone HCl (Latuda) 60 mg DAILY@18 PO Last administered on 03/13/17 17:58 ; Start 03/13/17 at 18:00; Stop 03/14/17 at 08:53; Status DC Lurasidone HCl (Latuda) 80 mg DAILY@18 PO Last administered on 03/11/17 18:42 ; Start 03/11/17 at 18:00; Stop 03/12/17 at 16:39; Status DC Magnesium Hydroxide (Milk Of Magnesia) 30 ml DAILYPRN PRN PO CONSTIPATION; Start 03/11/17 at 17:45; Stop 04/10/17 at 17:44 Perphenazine (Trilafon) 4 mg BID PO ; Start 03/12/17 at 21:00; Stop 03/12/17 at 21:00; Status DC Perphenazine (Trilafon) 4 mg BID PO Last administered on 03/15/17 09:16; Start 03/15/17 at 09:00; Stop 04/14/17 at 08:59 Perphenazine (Trilafon) 4 mg QHS PO Last administered on 03/14/17 21:42; Start 03/12/17 at 21:00; Stop 03/14/17 at 21:59; Status DC Trazodone HCl (Desyrel) 50 mg QHSP PRN PO INSOMNIA; Start 03/11/17 at 17:45; Stop 04/10/17 at 17:44 Allergies Coded Allergies: Mirella (Verified Allergy, Unknown, 02/10/08) Idania Abrams Mar 15, 2017 13:23
--- NOTE | 2017-03-15 15:08 | REP ---
Bilateral lower extremity Duplex Doppler venous ultrasound: Real time compression and duplex Doppler interrogation of the bilateral lower extremity deep venous system is performed. Bilaterally, the common femoral, superficial femoral and popliteal veins are fully compressible with transducer pressure and demonstrate normal spontaneous and phasic flow, without evidence of deep venous thrombosis. Impression: No evidence of deep venous thrombosis of the bilateral lower extremity femoral popliteal venous system. Signed by Elder Felix MD 03/15/2017 02:59 P
[2017-03-15 18:00] VITALS: BP 119/64
[2017-03-15] MEDS: LATANOPROST 0.005% OPHTH SOLN 2.5 ML OU SCH (21:23)
[2017-03-16 07:08] VITALS: BP 104/56
[2017-03-16] MEDS: CHLORHEXIDINE GLUCONATE 0.12 % 15ML UDC (PERIDEX ORAL RINSE) SSP SCH ×3 (09:19→21:48)
[2017-03-16] MEDS: FLUoxetine 20 MG CAP PO SCH (09:19)
[2017-03-16] MEDS: PERPHENAZINE 2 MG TAB PO SCH ×2 (09:19→21:48)
[2017-03-16 18:00] VITALS: BP 124/60
[2017-03-16] MEDS: VALPROIC ACID 250 MG CAP PO SCH (21:47)
[2017-03-16] MEDS: LATANOPROST 0.005% OPHTH SOLN 2.5 ML OU SCH (21:48)
[2017-03-17 07:00] VITALS: BP 115/68
[2017-03-17] MEDS: FLUoxetine 20 MG CAP PO SCH (08:50)
[2017-03-17] MEDS: CHLORHEXIDINE GLUCONATE 0.12 % 15ML UDC (PERIDEX ORAL RINSE) SSP SCH ×3 (08:50→20:58)
[2017-03-17] MEDS: VALPROIC ACID 250 MG CAP PO SCH ×2 (08:50→20:59)
[2017-03-17] MEDS: PERPHENAZINE 2 MG TAB PO SCH ×2 (08:51→20:58)
[2017-03-17 18:00] VITALS: BP 116/63
[2017-03-17] MEDS: LATANOPROST 0.005% OPHTH SOLN 2.5 ML OU SCH (20:59)
[2017-03-18 06:06] VITALS: BP 140/69
[2017-03-18] MEDS: CHLORHEXIDINE GLUCONATE 0.12 % 15ML UDC (PERIDEX ORAL RINSE) SSP SCH ×3 (09:17→21:31)
[2017-03-18] MEDS: FLUoxetine 20 MG CAP PO SCH (09:17)
[2017-03-18] MEDS: VALPROIC ACID 250 MG CAP PO SCH ×2 (09:17→21:31)
[2017-03-18] MEDS: PERPHENAZINE 2 MG TAB PO SCH ×2 (09:18→21:32)
--- NOTE | 2017-03-18 16:50 | IPNPDOC ---
[facility] Progress Note Progress Note DATE OF SERVICE: 03/18/17 HISTORY: Day 8 of admission VITAL SIGNS: See below. NEW TEST RESULTS: depakote level. CURRENT MEDICATIONS: See below. MENTAL STATUS EXAMINATION: Patient is a 41-year old male, who is dressed in a plaid shirt, bearded, hair in pony tail, wearing glasses. Speech: Is spontaneous Language skills are intact & good Thought processes including: persecutions, delusions, concrete Thought content: "I hope my room is not all a mess". I think I will remain on the shot. Abstract reasoning, and computation: some distortion. Description of associations: adequate. Description of abnormal or psychotic thoughts: no SI today. Feels angry and states his anger has gotten in his way. Judgment: fair to good. Insight: fair. Orientation: x 3 Recent and remote memory: intact Attention span and concentration: adequate Fund of knowledge: full Mood: euthymic. Affect: congruent DIAGNOSES: 1. Paranoid schizophrenia, chronic 2. caffeine dependence 3. nicotine dependence ASSESSMENT:attending programing, interaction with peers is acceptable and appropriate. complies with unit protocols and routine. He states the dose of perphenazine is good, "it's working" , and bowens snot want it reduced. He states he has some sedation after getting the shot but it was explained the medication takes several days to get into his blood stream. He inquired about his depakote level which is not available. Sleep is good, appetite is good. reported some constipation, will monitor. MANAGEMENT PLAN: Continue to monitor for effects of Maintena, monitor for medication side effects, encourage anger mgt techniques. TIME SPENT: 25 minutes. Vital Signs Vital Signs Date Time Temp Pulse Resp B/P (MAP) Pulse Ox O2 Delivery O2 Flow Rate FiO2 03/18/17 06:06 96.8 89 18 140/69 (92) Room Air Current Medications Current Medications Al Hydrox/Mg Hydrox/Simethicone (Mylanta) 30 ml Q4HP PRN PO HEARTBURN/ INDIGESTION; Start 03/11/17 at 17:45; Stop 04/10/17 at 17:44 Aripiprazole (Abilify Maintena) 400 mg Q30D IM ; Start 03/15/17 at 11:45; Stop 03/15/17 at 11:49; Status DC Aripiprazole (Abilify Maintena) 400 mg Q30D@0900 IM Last administered on 12:17; Start 03/15/17 at 09:00; Stop 04/14/17 at 08:59 Benztropine Mesylate (Cogentin) 1 mg BIDP PRN PO eps; Start 03/12/17 at 16:30; Stop 04/11/17 at 16:29 Chlorhexidine Gluconate (Peridex Oral Rinse) 15 ml TID SSP Last administered on 03/18/17 15:53; Start 03/12/17 at 09:00; Stop 04/11/17 at 08:59 Divalproex Sodium (Depakote) 500 mg BID PO Last administered on 03/15/17 21:24 ; Start 03/14/17 at 21:00; Stop 03/15/17 at 22:00; Status DC Divalproex Sodium (Depakote) 750 mg BID PO Last administered on 03/14/17 08:04 ; Start 03/11/17 at 21:00; Stop 03/14/17 at 11:12; Status DC Fluoxetine HCl (PROzac) 20 mg QAM PO Last administered on 03/18/17 09:17; Start 03/12/17 at 09:00; Stop 04/11/17 at 08:59 Home Med (Med Rec Complete!) ASDIRECTED XX ; Start 03/11/17 at 14:00; Stop at 14:00; Status DC Hydroxyzine HCl (Atarax) 25 mg DAILYPRN PRN PO ANXIETY/AGITATION; Start at 17:45; Stop 04/10/17 at 17:44 Ibuprofen (Advil) 400 mg BIDP PRN PO PAIN; Start 03/11/17 at 17:45; Stop at 17:44 Lamotrigine (LaMICtal) 12.5 mg QHS PO Last administered on 03/11/17 21:29; Start 03/11/17 at 21:00; Stop 03/12/17 at 16:36; Status DC Latanoprost (Xalatan 0.005% Op Soln) 1 drop QHS OU Last administered on 20:59; Start 03/11/17 at 21:00; Stop 04/10/17 at 20:59 Lurasidone HCl (Latuda) 20 mg DAILY@18 PO Last administered on 03/14/17 18:27 ; Start 03/14/17 at 18:00; Stop 03/15/17 at 11:44; Status DC Lurasidone HCl (Latuda) 40 mg DAILY@18 PO Last administered on 03/14/17 18:27 ; Start 03/14/17 at 18:00; Stop 03/15/17 at 11:44; Status DC Lurasidone HCl (Latuda) 60 mg DAILY@18 PO Last administered on 03/12/17 17:52 ; Start 03/12/17 at 18:00; Stop 03/13/17 at 15:55; Status DC Lurasidone HCl (Latuda) 60 mg DAILY@18 PO Last administered on 03/13/17 17:58 ; Start 03/13/17 at 18:00; Stop 03/14/17 at 08:53; Status DC Lurasidone HCl (Latuda) 80 mg DAILY@18 PO Last administered on 03/11/17 18:42 ; Start 03/11/17 at 18:00; Stop 03/12/17 at 16:39; Status DC Magnesium Hydroxide (Milk Of Magnesia) 30 ml DAILYPRN PRN PO CONSTIPATION; Start 03/11/17 at 17:45; Stop 04/10/17 at 17:44 Perphenazine (Trilafon) 4 mg BID PO ; Start 03/12/17 at 21:00; Stop 03/12/17 at 21:00; Status DC Perphenazine (Trilafon) 4 mg BID PO Last administered on 03/18/17 09:18; Start 03/15/17 at 09:00; Stop 04/14/17 at 08:59 Perphenazine (Trilafon) 4 mg QHS PO Last administered on 03/14/17 21:42; Start 03/12/17 at 21:00; Stop 03/14/17 at 21:59; Status DC Trazodone HCl (Desyrel) 50 mg QHSP PRN PO INSOMNIA; Start 03/11/17 at 17:45; Stop 04/10/17 at 17:44 Valproic Acid (Depakene) 500 mg BID PO Last administered on 5/1/17at 09:17; Start 03/16/17 at 21:00; Stop 04/15/17 at 20:59 Allergies Coded Allergies: Mirella (Verified Allergy, Unknown, 02/10/08) Idania Abrams March 18, 2017 16:50
[2017-03-18 18:00] VITALS: BP 112/69
[2017-03-18] MEDS: LATANOPROST 0.005% OPHTH SOLN 2.5 ML OU SCH (21:31)
[2017-03-19 06:07] VITALS: BP 119/67
[2017-03-19] MEDS: PERPHENAZINE 2 MG TAB PO SCH ×2 (08:16→20:53)
[2017-03-19] MEDS: FLUoxetine 20 MG CAP PO SCH (08:16)
[2017-03-19] MEDS: VALPROIC ACID 250 MG CAP PO SCH ×2 (08:17→20:53)
[2017-03-19] MEDS: CHLORHEXIDINE GLUCONATE 0.12 % 15ML UDC (PERIDEX ORAL RINSE) SSP SCH ×3 (08:17→20:53)
--- NOTE | 2017-03-19 13:55 | IPNPDOC ---
[facility] Progress Note Progress Note DATE OF SERVICE: 03/19/17 HISTORY: Day 8 of admission VITAL SIGNS: See below. NEW TEST RESULTS: depakote level is 34.1-subtherapeutic CURRENT MEDICATIONS: See below. MENTAL STATUS EXAMINATION: Patient is a 41-year old male, who is wearing plaid shirt and hospital pj's, hygiene is good, hair is long and he is wearing it down today. Speech: Is spontaneous and clear,over productive Language skills are good. Thought processes including: suspicions, paranoia, reports internal stimuli of musical tones and voices Thought content: appropriate, discharge Abstract reasoning, and computation: adequate. Description of associations: good. Description of abnormal or psychotic thoughts: pt for the first time reported he has voices and hears musical sounds and tones on a regular basis. it does not frighten him. He states it has been happening for years and he generally knows how to deal with it. He states it does add to his source of anger however. Judgment: fair Insight: fair. Orientation: x3 Recent and remote memory: intact Attention span and concentration: adequate Fund of knowledge: satisfactory Mood:euthymic. Affect: congruent DIAGNOSES: 1. Paranoid schizophrenia, chronic 2. Nicotine dependence ASSESSMENT : pt will monopolize the conversation. is cooperative to unit protocols and routines. Enjoys a variety of groups. Pt was informed that depakote level is subtherapeutic and it is recommended it be increased. He was in agreement. he plans to start a journal of his experiences with staff at [facility] and others, along with writing down his thoughts and ideas as a coping mechanism. Pt states he is ready for discharge and would like to leave the hospital as soon as it can be arranged. MANAGEMENT PLAN: Increase hs depakote (valproic acid) to 750 mg from 500 mg. will have depakote level checked as an outpatient. continue observation and involvement in therapeutic milieu. TIME SPENT: 35 minutes. Vital Signs Vital Signs Date Time Temp Pulse Resp B/P (MAP) Pulse Ox O2 Delivery O2 Flow Rate FiO2 03/19/17 06:07 98.8 60 18 119/67 (84) Room Air Current Medications Current Medications Al Hydrox/Mg Hydrox/Simethicone (Mylanta) 30 ml Q4HP PRN PO HEARTBURN/ INDIGESTION; Start 03/11/17 at 17:45; Stop 04/10/17 at 17:44 Aripiprazole (Abilify Maintena) 400 mg Q30D IM ; Start 03/15/17 at 11:45; Stop 03/15/17 at 11:49; Status DC Aripiprazole (Abilify Maintena) 400 mg Q30D@0900 IM Last administered on 12:17; Start 03/15/17 at 09:00; Stop 04/14/17 at 08:59 Benztropine Mesylate (Cogentin) 1 mg BIDP PRN PO eps; Start 03/12/17 at 16:30; Stop 04/11/17 at 16:29 Chlorhexidine Gluconate (Peridex Oral Rinse) 15 ml TID SSP Last administered on 03/19/17 08:17; Start 03/12/17 at 09:00; Stop 04/11/17 at 08:59 Divalproex Sodium (Depakote) 500 mg BID PO Last administered on 03/15/17 21:24 ; Start 03/14/17 at 21:00; Stop 03/15/17 at 22:00; Status DC Divalproex Sodium (Depakote) 750 mg BID PO Last administered on 03/14/17 08:04 ; Start 03/11/17 at 21:00; Stop 03/14/17 at 11:12; Status DC Fluoxetine HCl (PROzac) 20 mg QAM PO Last administered on 03/19/17 08:16; Start 03/12/17 at 09:00; Stop 04/11/17 at 08:59 Home Med (Med Rec Complete!) ASDIRECTED XX ; Start 03/11/17 at 14:00; Stop at 14:00; Status DC Hydroxyzine HCl (Atarax) 25 mg DAILYPRN PRN PO ANXIETY/AGITATION; Start at 17:45; Stop 04/10/17 at 17:44 Ibuprofen (Advil) 400 mg BIDP PRN PO PAIN; Start 03/11/17 at 17:45; Stop at 17:44 Lamotrigine (LaMICtal) 12.5 mg QHS PO Last administered on 03/11/17 21:29; Start 03/11/17 at 21:00; Stop 03/12/17 at 16:36; Status DC Latanoprost (Xalatan 0.005% Op Soln) 1 drop QHS OU Last administered on 21:31; Start 03/11/17 at 21:00; Stop 04/10/17 at 20:59 Lurasidone HCl (Latuda) 20 mg DAILY@18 PO Last administered on 03/14/17 18:27 ; Start 03/14/17 at 18:00; Stop 03/15/17 at 11:44; Status DC Lurasidone HCl (Latuda) 40 mg DAILY@18 PO Last administered on 03/14/17 18:27 ; Start 03/14/17 at 18:00; Stop 03/15/17 at 11:44; Status DC Lurasidone HCl (Latuda) 60 mg DAILY@18 PO Last administered on 03/12/17 17:52 ; Start 03/12/17 at 18:00; Stop 03/13/17 at 15:55; Status DC Lurasidone HCl (Latuda) 60 mg DAILY@18 PO Last administered on 03/13/17 17:58 ; Start 03/13/17 at 18:00; Stop 03/14/17 at 08:53; Status DC Lurasidone HCl (Latuda) 80 mg DAILY@18 PO Last administered on 03/11/17 18:42 ; Start 03/11/17 at 18:00; Stop 03/12/17 at 16:39; Status DC Magnesium Hydroxide (Milk Of Magnesia) 30 ml DAILYPRN PRN PO CONSTIPATION; Start 03/11/17 at 17:45; Stop 04/10/17 at 17:44 Perphenazine (Trilafon) 4 mg BID PO ; Start 03/12/17 at 21:00; Stop 03/12/17 at 21:00; Status DC Perphenazine (Trilafon) 4 mg BID PO Last administered on 03/19/17 08:16; Start 03/15/17 at 09:00; Stop 04/14/17 at 08:59 Perphenazine (Trilafon) 4 mg QHS PO Last administered on 03/14/17 21:42; Start 03/12/17 at 21:00; Stop 03/14/17 at 21:59; Status DC Trazodone HCl (Desyrel) 50 mg QHSP PRN PO INSOMNIA; Start 03/11/17 at 17:45; Stop 04/10/17 at 17:44 Valproic Acid (Depakene) 250 mg BID PO ; Start 03/19/17 at 21:00; Stop 03/19/17 at 21:00; Status DC Valproic Acid (Depakene) 500 mg BID PO Last administered on 03/19/17t 08:17; Start 03/16/17 at 21:00; Stop 03/19/17 at 10:23; Status DC Valproic Acid (Depakene) 500 mg QAM PO ; Start 03/20/17 at 09:00; Stop 04/19/17 at 08:59 Valproic Acid (Depakene) 750 mg QHS PO ; Start 03/19/17 at 21:00; Stop 04/18/17 at 20:59 Allergies Coded Allergies: Mirella (Verified Allergy, Unknown, 02/10/08) Idania Abrams March 19, 2017 13:54
[2017-03-19 18:00] VITALS: BP 100/63
[2017-03-19] MEDS: LATANOPROST 0.005% OPHTH SOLN 2.5 ML OU SCH (20:53)
[2017-03-19] MEDS ORDERED: VALPROIC ACID 250 MG CAP PO SCH (21:00)
[2017-03-20 07:41] VITALS: BP 124/57
[2017-03-20] MEDS: FLUoxetine 20 MG CAP PO SCH (08:10)
[2017-03-20] MEDS: CHLORHEXIDINE GLUCONATE 0.12 % 15ML UDC (PERIDEX ORAL RINSE) SSP SCH ×3 (08:10→21:17)
[2017-03-20] MEDS: PERPHENAZINE 2 MG TAB PO SCH ×2 (08:10→21:17)
[2017-03-20] MEDS: VALPROIC ACID 250 MG CAP PO SCH ×2 (08:10→21:17)
--- NOTE | 2017-03-20 14:44 | IPNPDOC ---
[facility] Progress Note Progress Note DATE OF SERVICE: 03/20/17 HISTORY: Day 10 of admission VITAL SIGNS: See below. NEW TEST RESULTS: na CURRENT MEDICATIONS: See below. MENTAL STATUS EXAMINATION: Patient is a 41 year old male, who is wearing same plaid shirt and hospital pj's , glasses, hair tied back, good hygiene. Speech: Is fluent, spontaneous Language skills are good. Thought processes including: suspicion, paranoia, circumstantial Thought content: discharge, court for AOT, helping roommate. Abstract reasoning , and computation: fair Description of associations: good Description of abnormal or psychotic thoughts: "always hear noise in my head". Denies SI and HI Judgment: good Insight: good. Orientation: oriented in all spheres. Recent and remote memory: moderately impaired Attention span and concentration: adequate Fund of knowledge: impaired Mood: "good". Affect: congruent DIAGNOSES: 1. Paranoid Schizophrenia, chronic 2. Nicotine dependence. 3. ASSESSMENT:Pt expects discharge tomorrow. TLS getting room prepared today, pt is much less angry and distracted by internal stressors than when admitted. Taking additional dose of depakote at hs as level was low. New level can be ordered as outpatient. He likes the perphenazine and does not want it lowered, he is aware of the risks of multiple antipsychotics for metabolic syndrome and EPS/TD. Pt is sleeping and eating well. Helpful toward roommate, actively participating in groups. MANAGEMENT PLAN: No change in medication. Pt may leave tomorrow when TLS is ready for him. Have been informed this will be around 1 p.m. Discharge meds will be ordered for 7 days with 4 refills. TIME SPENT: 15 minutes. Vital Signs Vital Signs Date Time Temp Pulse Resp B/P (MAP) Pulse Ox O2 Delivery O2 Flow Rate FiO2 03/20/17 07:41 97.8 64 18 124/57 (79) 03/19/17 06:07 Room Air Current Medications Current Medications Al Hydrox/Mg Hydrox/Simethicone (Mylanta) 30 ml Q4HP PRN PO HEARTBURN/ INDIGESTION; Start 03/11/17 at 17:45; Stop 04/10/17 at 17:44 Aripiprazole (Abilifjuan jose Maintena) 400 mg Q30D IM ; Start 03/15/17 at 11:45; Stop 03/15/17 at 11:49; Status DC Aripiprazole (Abilify Maintena) 400 mg Q30D@0900 IM Last administered on 12:17; Start 03/15/17 at 09:00; Stop 04/14/17 at 08:59 Benztropine Mesylate (Cogentin) 1 mg BIDP PRN PO eps; Start 03/12/17 at 16:30; Stop 04/11/17 at 16:29 Chlorhexidine Gluconate (Peridex Oral Rinse) 15 ml TID SSP Last administered on 03/20/17 08:10; Start 03/12/17 at 09:00; Stop 04/11/17 at 08:59 Divalproex Sodium (Depakote) 500 mg BID PO Last administered on 03/15/17 21:24 ; Start 03/14/17 at 21:00; Stop 03/15/17 at 22:00; Status DC Divalproex Sodium (Depakote) 750 mg BID PO Last administered on 03/14/17 08:04 ; Start 03/11/17 at 21:00; Stop 03/14/17 at 11:12; Status DC Fluoxetine HCl (PROzac) 20 mg QAM PO Last administered on 03/20/17 08:10; Start 03/12/17 at 09:00; Stop 04/11/17 at 08:59 Home Med (Med Rec Complete!) ASDIRECTED XX ; Start 03/11/17 at 14:00; Stop at 14:00; Status DC Hydroxyzine HCl (Atarax) 25 mg DAILYPRN PRN PO ANXIETY/AGITATION; Start at 17:45; Stop 04/10/17 at 17:44 Ibuprofen (Advil) 400 mg BIDP PRN PO PAIN; Start 03/11/17 at 17:45; Stop at 17:44 Lamotrigine (LaMICtal) 12.5 mg QHS PO Last administered on 03/11/17 21:29; Start 03/11/17 at 21:00; Stop 03/12/17 at 16:36; Status DC Latanoprost (Xalatan 0.005% Op Soln) 1 drop QHS OU Last administered on 20:53; Start 03/11/17 at 21:00; Stop 04/10/17 at 20:59 Lurasidone HCl (Latuda) 20 mg DAILY@18 PO Last administered on 03/14/17 18:27 ; Start 03/14/17 at 18:00; Stop 03/15/17 at 11:44; Status DC Lurasidone HCl (Latuda) 40 mg DAILY@18 PO Last administered on 03/14/17 18:27 ; Start 03/14/17 at 18:00; Stop 03/15/17 at 11:44; Status DC Lurasidone HCl (Latuda) 60 mg DAILY@18 PO Last administered on 03/12/17 17:52 ; Start 03/12/17 at 18:00; Stop 03/13/17 at 15:55; Status DC Lurasidone HCl (Latuda) 60 mg DAILY@18 PO Last administered on 03/13/17 17:58 ; Start 03/13/17 at 18:00; Stop 03/14/17 at 08:53; Status DC Lurasidone HCl (Latuda) 80 mg DAILY@18 PO Last administered on 03/11/17 18:42 ; Start 03/11/17 at 18:00; Stop 03/12/17 at 16:39; Status DC Magnesium Hydroxide (Milk Of Magnesia) 30 ml DAILYPRN PRN PO CONSTIPATION; Start 03/11/17 at 17:45; Stop 04/10/17 at 17:44 Perphenazine (Trilafon) 4 mg BID PO ; Start 03/12/17 at 21:00; Stop 03/12/17 at 21:00; Status DC Perphenazine (Trilafon) 4 mg BID PO Last administered on 03/20/17 08:10; Start 03/15/17 at 09:00; Stop 04/14/17 at 08:59 Perphenazine (Trilafon) 4 mg QHS PO Last administered on 03/14/17 21:42; Start 03/12/17 at 21:00; Stop 03/14/17 at 21:59; Status DC Trazodone HCl (Desyrel) 50 mg QHSP PRN PO INSOMNIA; Start 03/11/17 at 17:45; Stop 04/10/17 at 17:44 Valproic Acid (Depakene) 250 mg BID PO ; Start 03/19/17 at 21:00; Stop 03/19/17 at 21:00; Status DC Valproic Acid (Depakene) 500 mg BID PO Last administered on 03/19/17 08:17; Start 03/16/17 at 21:00; Stop 03/19/17 at 10:23; Status DC Valproic Acid (Depakene) 500 mg QAM PO Last administered on 03/20/17 08:10; Start 03/20/17 at 09:00; Stop 04/19/17 at 08:59 Valproic Acid (Depakene) 750 mg QHS PO Last administered on 03/19/17 20:53; Start 03/19/17 at 21:00; Stop 04/18/17 at 20:59 Allergies Coded Allergies: Mirella (Verified Allergy, Unknown, 02/10/08) Idania Abrams March 20, 2017 14:44
[2017-03-20 18:00] VITALS: BP 132/74
[2017-03-20] MEDS: LATANOPROST 0.005% OPHTH SOLN 2.5 ML OU SCH (21:17)
[2017-03-21 06:32] VITALS: BP 123/76
[2017-03-21] MEDS: PERPHENAZINE 2 MG TAB PO SCH (09:20)
[2017-03-21] MEDS: VALPROIC ACID 250 MG CAP PO SCH (09:21)
[2017-03-21] MEDS: FLUoxetine 20 MG CAP PO SCH (09:21)
[2017-03-21] MEDS: CHLORHEXIDINE GLUCONATE 0.12 % 15ML UDC (PERIDEX ORAL RINSE) SSP SCH (09:21)
[2017-03-21] MEDS ORDERED: HYDR1CAP25 PO (10:29)
[2017-03-21] MEDS ORDERED: PERP2TA PO (10:29)
[2017-03-21] MEDS ORDERED: DEPA250C PO ×4 (10:29→11:39)
[2017-03-21] MEDS ORDERED: ABIL400I IM (10:29)
--- NOTE | 2017-03-21 11:20 | DS.PDOC ---
[facility] Discharge Summary Discharge Summary DATE OF ADMISSION: Mar 11, 2017 at 14:39 DATE OF DISCHARGE: March 21, 2017 DISCHARGE DIAGNOSES: 1. Paranoid schizophrenia, chronic 2. nicotine dependence REASON FOR ADMISSION: paranoia, threatening to staff and peers at correction, suspicious, illogical, refusing to follow AOT recommendations and decompensating. CONSULTANTS INVOLVED: TREATMENT AND PROGRESS ON THE UNIT : Pt was upset and angry when he was first admitted and refusing to allow injectable as part of treatment. Pt has AOT involved and the order clearly lists Abilify Maintena as the #1 recommended medication by his outpatient providers and consults to the case. Pt had not received an injection since August 2016. On his prior admission he presented to the [facility] unscheduled for his injection and they were not able to administer it. (no RN). When he got on the unit he requested perphenazine as he states it helps regulate his libido which is activated on Abilify Maintena. A meeting was held with AOT, TLS, his Mental Hygiene Assistant Auto [employer] Manager and the patient. Consensus was that Brandt behaved more appropriately and got along much better with others and was able to remain out of the hospital for longer periods of time when he was on the injections. This was sufficient for him to reconsider this aspect of treatment and he agreed to resume the Maintena. He asked to remain on vistaril (atarax) prn daily as needed for anxiety. His depakote was lowered but the level was sub therapeutic so we began raising it again from a low of 500 mg bid to 500 mg in a.m and 750 mg at hs. It does make him drowsy which he does not like. Pt also requested the addition of perphenazine, not Abilify po with the MOREAU. He tolerated this combination and was actively participating in groups and helping his roommate. Pt demonstrated some insight into his anger and how this caused problems at his correction. He states he would like to begin journaling to help him work through problems with less aggravation. He verbalized some appropriate coping skills when upset with TLS staff or angry with others. He can go for a walk, pray, do yoga or write. HOSPITAL COURSE: Pt tolerated medication adjustments. He was agreeable to an increase in valproic acid when his level was low. He was changed to valproic acid due to his complaint that Depakote was a salt and he was "allergic to salt ". Pt tolerated this car changer well. He accepted the Abilify Maintena injection and stated he was glad to be back on it. He stated he didn't realize that the medication was part of the order. He stated he would remain on the injection. He was advised to be alert for EPS, and/or akathisia with the perphenazine and that that medication and the valproic acid may be adjusted again as part of his outpatient treatment. He was understanding of this and agreeable. DISCHARGE ASSESSMENT:Pt is future oriented. He has not been suicidal. He is alert and well oriented. He admits to frequent "noises in his head" adding "I hear all sorts of things and always have". Pt denies he is a danger to self or others. He is happy to return to [facility] and he will prepare for his court date tomorrow. He has a good understanding of his illness and his limitations and know it is a benefit for him to live with others who support him. Pt talks about some work ambitions but no plans or intentions to actually pursue a career. He speaks of his son often and enjoys spending time with him. MENTAL STATUS EXAMINATION ON DISCHARGE: Patient is a 41-year old male, who is dressed in plaid shirt and jeans, with long grayish hair that is tied back. Speech is fluent, spontaneous Language skills are intact. Thought processes including: preservation, circumstantial, goal directed Thought content: discharge, meds, returning to TLS, court Abstract reasoning, and computation: good Description of associations: good Description of abnormal or psychotic thoughts: present but he is accustomed to tuning them out. no si or hi, noises, no visions. Judgment: good Insight: good Orientation to x 3 Recent and remote memory: intact Attention span and concentration: adequate Fund of knowledge: slightly impaired Mood: euthymic Affect: congruent. MEDICATIONS ON DISCHARGE: - abilify maintena injection for mood stability, reduction in psychotic process - perphenazine for perceptual disturbances, calming - atarax for calming PLAN/FOLLOWUP ARRANGEMENTS: return to previous outpatient provider for medication mgt. Keep all appointments for injections. take meds as prescribed, do not stop medication abruptly. The amount of time spent in the coordination of care for this patient was approximately 30minutes. Vital Signs/I&Os Vital Signs Date Time Temp Pulse Resp B/P (MAP) Pulse Ox O2 Delivery O2 Flow Rate FiO2 03/21/17 06:32 97.6 82 16 123/76 (92) 03/19/17 06:07 Room Air Medications Scheduled Aripiprazole Monohydrate (Abilify Maintena) 400 Mg Inj, 400 MG IM QMONTH for MOOD, #1 Fluoxetine Hcl (Fluoxetine) 20 Mg Cap, 20 MG PO QAM, (Reported) Perphenazine (Perphenazine) 2 Mg Tab, 4 MG PO BID for MOOD for 7 Days, #14 Travoprost (Travatan Z) 50 Drop/2.5 Ml Soln, 1 DROP OU QHS, (Reported) Valproic Acid (Depakene) 250 Mg Cap, 500 MG PO QAM for MOOD for 7 Days, #14 Valproic Acid (Depakene) 250 Mg Cap, 750 MG PO QHS for MOOD for 7 Days, #7 Scheduled PRN Hydroxyzine Pamoate (Hydroxyzine Pamoate) 25 Mg Cap, 25 MG PO DAILY PRN for ANXIETY for 7 Days, #7 Ibuprofen (Ibuprofen) 400 Mg Tab, 400 MG PO BID PRN for PAIN, (Reported) Trazodone HCl (Trazodone HCl) 50 Mg Tab, 50 MG PO QHS PRN for INSOMNIA, ( Reported) Allergies Coded Allergies: Mirella (Verified Allergy, Unknown, 02/10/08) Idania Abrams March 21, 2017 11:20
[2017-03-21] MEDS ORDERED: PERP4TA PO (11:40)
[2017-03-21] MEDS ORDERED: CHLO0.129 SSP (12:26)
== END 2017-03-21 13:45 | disposition home or self-care (01) | DRG 885 ==
LOC: M ED 11:12 → M ED INP 14:39 → M PSY 16:22
PROVIDERS: ADMIT Psychiatry & Neurology Child & Adolescent Psychiatry; ATTEND Psychiatry & Neurology Child & Adolescent Psychiatry
DX: F20.0 Paranoid schizophrenia (principal); E87.1 Hypo-osmolality and hyponatremia; I10 Essential (primary) hypertension; E78.5 Hyperlipidemia, unspecified; H40.9 Unspecified glaucoma; F17.210 Nicotine dependence, cigarettes, uncomplicated; M25.50 Pain in unspecified joint; M79.661 Pain in right lower leg; M79.662 Pain in left lower leg; D64.9 Anemia, unspecified; K21.9 Gastro-esophageal reflux disease without esophagitis; N40.0 Benign prostatic hyperplasia without lower urinary tract symptoms; G47.33 Obstructive sleep apnea (adult) (pediatric); K12.0 Recurrent oral aphthae; Z79.899 Other long term (current) drug therapy; Z91.018 Allergy to other foods; Z86.711 Personal history of pulmonary embolism; Z91.14 Patient's other noncompliance with medication regimen

== ENCOUNTER 2017-03-26 13:04 | Inpatient (IN) | payer MEDICARE, MEDICAID ==
[~2017-03-26] VITALS: Ht 170.2 cm; Wt 92.7 kg
[~2017-03-26 13:04] MED LIST changes: +DEPA250C PO; +HYDR1CAP25 PO; +IBUP40TA PO; +LAMI25TA PO; +PERP2TA PO
[2017-03-26 14:04] LABS: MEAN CORPUSCULAR HEMOGLOBIN 30.6 pg (27.0-33.0); MEAN CORPUSCULAR HGB CONC 32.9 g/dl (32.0-36.5); RED CELL DISTRIBUTION WIDTH 13.1 % (11.5-14.5); WHITE BLOOD COUNT 7.4 K/mm3 (4.0-10.0)
[2017-03-26 14:28] LABS: METHADONE URINE NEGATIVE (NEGATIVE)
[2017-03-26 14:47] LABS: ALBUMIN 3.6 GM/DL (3.2-5.2); ALBUMIN/GLOBULIN RATIO 1.13 (1.00-1.93); ALKALINE PHOSPHATASE 66 U/L (45-117); ALT/SGPT 20 U/L (12-78); ANION GAP 4 MEQ/L (8-16); AST/SGOT 15 U/L (15-37); BILIRUBIN,DIRECT 0.2 MG/DL (0.0-0.2); BILIRUBIN,TOTAL 0.5 MG/DL (0.2-1.0); BLOOD UREA NITROGEN 11 MG/DL (7-18); CALCIUM LEVEL 9.2 MG/DL (8.5-10.1); CARBON DIOXIDE LEVEL 32 MEQ/L (21-32); CHLORIDE LEVEL 105 MEQ/L (98-107); CREATININE FOR GFR 0.77 MG/DL (0.70-1.30); GLOMERULAR FILTRATION RATE > 60.0 (>60); GLUCOSE, FASTING 112 MG/DL (70-105); POTASSIUM SERUM 4.4 MEQ/L (3.5-5.1); SODIUM LEVEL 141 MEQ/L (136-145); TOTAL PROTEIN 6.8 GM/DL (6.4-8.2)
[2017-03-26] MEDS ORDERED: MAALOX 30 ML SUSP *UDC PO PRN (17:30)
[2017-03-26] MEDS ORDERED: traZODone 50 MG TAB PO PRN (17:30)
[2017-03-26] MEDS ORDERED: ABIL400I IM (18:25)
[2017-03-26] MEDS ORDERED: CHLO0.124 MT (18:25)
[2017-03-26] MEDS ORDERED: PERP4TA PO (18:25)
[2017-03-26] MEDS ORDERED: VALP1CAP2 PO ×2 (18:25)
[2017-03-26] MEDS ORDERED: HYDR1CAP25 PO (18:25)
[2017-03-26 19:32] VITALS: BP 113/81
[2017-03-26] MEDS ORDERED: LORazepam 1 MG TAB PO PRN (20:45)
[2017-03-26] MEDS: VALPROIC ACID 250 MG CAP PO SCH (21:38)
[2017-03-26] MEDS: CHLORHEXIDINE GLUCONATE 0.12 % 15ML UDC (PERIDEX ORAL RINSE) MT SCH (21:38)
[2017-03-26] MEDS: LATANOPROST 0.005% OPHTH SOLN 2.5 ML OU SCH (21:38)
[2017-03-27 06:56] VITALS: BP 117/67
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
[2017-03-27] MEDS: FLUoxetine 20 MG CAP PO SCH (09:29)
[2017-03-27] MEDS: PERPHENAZINE 2 MG TAB PO SCH ×2 (09:29→20:28)
[2017-03-27] MEDS: LIDOCAINE 5% (LIDODERM) PATCH TD SCH (09:29)
[2017-03-27] MEDS: CHLORHEXIDINE GLUCONATE 0.12 % 15ML UDC (PERIDEX ORAL RINSE) MT SCH ×3 (09:30→20:28)
[2017-03-27] MEDS: VALPROIC ACID 250 MG CAP PO SCH ×2 (09:30→20:29)
--- NOTE | 2017-03-27 11:21 | REP ---
Left shoulder: Three views. History: Shoulder pain. Findings: The left glenohumeral and acromioclavicular joints are normally aligned. There is osteoarthritic hypertrophy at the AC joint. Periarticular soft tissues are unremarkable. No erosive changes seen. There is an old healed rib fracture on the left involving the posterior 9th rib. Impression: Osteoarthritis at the AC joint. Otherwise negative left shoulder radiographs. Signed by Martell Shine MD 03/27/2017 04:33 P
--- NOTE | 2017-03-27 11:46 | REP ---
Cervical spine series: Nine views. History: Neck pain. Findings: Lateral views done in flexion, extension and neutral position show normal alignment. Vertebral body heights are preserved. No subluxation or instability is seen. There is discogenic spurring anteriorly at C3-4 C4-5 and C5-6. Disc space narrowing is seen at C5-6. There is posterior osteophytic ridging at C5-6 as well. Swimmers lateral view shows no additional abnormality. Open-mouth odontoid and AP views are unremarkable. Oblique images demonstrate mild uncovertebral spurring bilaterally at C5-6. Impression: Degenerative disc disease most pronounced at C5-6 where there is posterior osteophytic ridging and mild bilateral uncovertebral spurring. Signed by Martell Shine MD 03/27/2017 04:33 P
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
[2017-03-27 18:00] VITALS: BP 110/60
[2017-03-27] MEDS: LATANOPROST 0.005% OPHTH SOLN 2.5 ML OU SCH (20:28)
[2017-03-27] MEDS: **NOTE PATIENT COMMENT** MISC XX SCH (21:24)
[2017-03-28 06:28] VITALS: BP 107/64
[2017-03-28] MEDS: FLUoxetine 20 MG CAP PO SCH (08:52)
[2017-03-28] MEDS: CHLORHEXIDINE GLUCONATE 0.12 % 15ML UDC (PERIDEX ORAL RINSE) MT SCH ×3 (08:52→21:18)
[2017-03-28] MEDS: VALPROIC ACID 250 MG CAP PO SCH ×2 (08:52→21:18)
[2017-03-28] MEDS: PERPHENAZINE 2 MG TAB PO SCH ×2 (08:53→21:18)
[2017-03-28] MEDS: LIDOCAINE 5% (LIDODERM) PATCH TD SCH (08:53)
--- NOTE | 2017-03-28 16:38 | MHIPNPDOC ---
[facility] Progress Note Progress Note DATE OF SERVICE: 03/28/17 HISTORY: day 2 of admission VITAL SIGNS: See below. NEW TEST RESULTS: na CURRENT MEDICATIONS: See below. MENTAL STATUS EXAMINATION: Patient is a 41-year old male, who is dressed in hospital attire, hair is long and tied back, wearing glasses. Speech: Is pressured Language skills are good Thought processes including: delusions, paranoia, suspicion, bizzare associations Thought content: things of the past Abstract reasoning, and computation: poor. Description of associations: good Description of abnormal or psychotic thoughts: Denies homicidal and suicidal thoughts or intent or plan. Thoughts are preoccupied with people and events of the past and he is stuck on them. Judgment: poor Insight: [very limited. Orientation: oriented to time place, person and situation Recent and remote memory: intact Attention span and concentration:poor Fund of knowledge: impaired Mood: anxious and paranoid. Affect: congruent DIAGNOSES: 1. Paranoid schizophrenia, chronic 2. HTN 3. hyperlipidemia 4. Glaucoma 5. Joint pain, chronic 6. Nicotine dependence 7. Poor dentition 8. h/o Pulmonary embolis in May 2016 ASSESSMENT:Pt actually presents with more bizzare thought disorder than yesterday. He cannot let go of ideas and is very tangential and circumstantial. Some of what he is talking about makes little sense. Is Maintena the right MOREAU for him? He has only had 1 injection and would need 3 more monthly injections to reach steady state. He may need additional perphenazine to help him get more organized. He reports good sleep. appetite is good. he continues to have auditory hallucinations but is able to push them into the background. MANAGEMENT PLAN: discuss med change or increasing perphenazine from bid to tid. encourage participation in groups as tolerated. continue observation. TIME SPENT: 30minutes. Vital Signs Vital Signs Date Time Temp Pulse Resp B/P (MAP) Pulse Ox O2 Delivery O2 Flow Rate FiO2 03/28/17 06:28 98.5 87 18 107/64 (78) 03/27/17 18:00 Room Air 03/26/17 19:32 97 Current Medications Current Medications Acetaminophen (Tylenol Tab) 650 mg Q6HP PRN PO HEADACHE or DISCOMFORT; Start at 17:30; Stop 04/25/17 at 17:29 Al Hydrox/Mg Hydrox/Simethicone (Mylanta) 30 ml Q4HP PRN PO HEARTBURN/ INDIGESTION; Start 03/26/17 at 17:30; Stop 04/25/17 at 17:29 Aripiprazole (AbiLIFY) 5 mg QHS PO Last administered on 03/26/17 21:39; Start 03/26/17 at 21:00; Stop 03/27/17 at 08:55; Status DC Aripiprazole (Abilify Maintena) 400 mg Q30D IM ; Start 04/14/17 at 09:00; Stop 05/14/17 at 08:59 Chlorhexidine Gluconate (Peridex Oral Rinse) 15 ml TID MT Last administered on 03/28/17 08:52; Start 03/26/17 at 21:00; Stop 04/25/17 at 20:59 Fluoxetine HCl (PROzac) 20 mg DAILY PO Last administered on 03/28/17 08:52; Start 03/27/17 at 09:00; Stop 04/26/17 at 08:59 Home Med (Med Rec Complete!) ASDIRECTED XX ; Start 03/26/17 at 18:30; Stop at 18:30; Status DC Hydroxyzine HCl (Atarax) 25 mg Q8HP PRN PO ANXIETY; Start 03/26/17 at 20:45; Stop 04/25/17 at 20:44 Latanoprost (Xalatan 0.005% Op Soln) 1 drop QHS OU Last administered on 20:28; Start 03/26/17 at 21:00; Stop 04/25/17 at 20:59 Lidocaine (Lidoderm Patch) 1 patch DAILY TD Last administered on 03/27/17 09: 29; Start 03/27/17 at 09:00; Stop 04/26/17 at 08:59 Lorazepam (Ativan) 1 mg Q8HP PRN PO ANXIETY; Start 03/26/17 at 20:45; Stop 04/02 at 20:44 Magnesium Hydroxide (Milk Of Magnesia) 30 ml DAILYPRN PRN PO CONSTIPATION; Start 03/26/17 at 17:30; Stop 04/25/17 at 17:29 Non-Formulary Medication ( See Comment Field Below ) REMOVE LIDODERM PATCH DAILY@21 XX Last administered on 03/27/17 21:24; Start 03/27/17 at 21:00; Stop 04/26/17 at 20:59 Perphenazine (Trilafon) 4 mg BID PO Last administered on 03/28/17 08:53; Start 03/27/17 at 09:00; Stop 04/26/17 at 08:59 Trazodone HCl (Desyrel) 50 mg QHSP PRN PO INSOMNIA; Start 03/26/17 at 17:30; Stop 04/25/17 at 17:29 Valproic Acid (Depakene) 500 mg QAM PO Last administered on 03/28/17 08:52; Start 03/27/17 at 09:00; Stop 04/26/17 at 08:59 Valproic Acid (Depakene) 750 mg QHS PO Last administered on 03/27/17 20:29; Start 03/26/17 at 21:00; Stop 04/25/17 at 20:59 Allergies Coded Allergies: Mirella (Verified Allergy, Unknown, 02/10/08) Idania Abrams March 28, 2017 16:38
[2017-03-28 18:00] VITALS: BP 141/72
[2017-03-28] MEDS: ACETAMINOPHEN TAB 650MG DOSE (2X325MG) PO PRN (19:12)
[2017-03-28] MEDS: LATANOPROST 0.005% OPHTH SOLN 2.5 ML OU SCH (21:19)
[2017-03-28] MEDS: **NOTE PATIENT COMMENT** MISC XX SCH (21:19)
[2017-03-29 06:17] VITALS: BP 143/67
[2017-03-29] MEDS: FLUoxetine 20 MG CAP PO SCH (08:53)
[2017-03-29] MEDS: PERPHENAZINE 2 MG TAB PO SCH ×2 (08:53→23:32)
[2017-03-29] MEDS: LIDOCAINE 5% (LIDODERM) PATCH TD SCH (08:54)
[2017-03-29] MEDS: CHLORHEXIDINE GLUCONATE 0.12 % 15ML UDC (PERIDEX ORAL RINSE) MT SCH ×3 (08:54→23:31)
[2017-03-29] MEDS: VALPROIC ACID 250 MG CAP PO SCH ×2 (08:54→23:30)
--- NOTE | 2017-03-29 11:20 | MHIPNPDOC ---
[facility] Progress Note Progress Note DATE OF SERVICE: 03/29/17 HISTORY: Day 4 of admission VITAL SIGNS: See below. NEW TEST RESULTS: reviewed cervical and shoulder x-rays. Cervical shows DDD with ridges and spurs. Shoulder-osteoarthritis CURRENT MEDICATIONS: See below. MENTAL STATUS EXAMINATION: Patient is a 41-year old male, who is dressed in hospital attire, good hygiene, long hair tied back, good eye contact. Speech: Is spontaneous, non-stop Language skills are intact and good Thought processes including: suspicion, paranoia Thought content: people from his childhood, plans for the further, health, TLS. Abstract reasoning, and computation: good. Description of associations:good. Description of abnormal or psychotic thoughts: pt has daily auditory hallucinations that do not interfere with his day to day function. Pt is not suicidal or homicidal, he is very suspicious of others including other patients on the unit. Wonders if they are gang members. Judgment: poor Insight: fair. Orientation: oriented in all spheres Recent and remote memory: intact Attention span and concentration: adequate Fund of knowledge: fair/impaired Mood: anxious. Affect:congruent. DIAGNOSES: ASSESSMENT:Pt is talking nonstop today. His depakote is in therapeutic range. He feels both the perphenazine and abilify are helping him and does not want a change or a med increase. His Maintena injection was on 03/15 and he has not established steady state yet of the drug. He is encouraged to use the skills of meditation and relaxation to help him calm down. It is suggested to him he not dwell on he past or what is going on with peers. Enc to focus only on self which he says is his main concern. He talked about attending school after relocating with [facility] or going to [place]. [facility] [place] is his first choice but he will consider [place] or [facility]. Pt denies n/v/d. Slept well last night. Appetite is good. Helpful toward roommate. MANAGEMENT PLAN: Continue observation and to monitor symptoms. Enc participation in unit activities. No medication changes at this time. TLS is looking into alternative placement options since he has become so paranoid at the [place] home. We are waiting for them to let us know what may be available so we can discharge him. He refuses to return to [place]. TIME SPENT: 30 minutes. Vital Signs Vital Signs Date Time Temp Pulse Resp B/P (MAP) Pulse Ox O2 Delivery O2 Flow Rate FiO2 03/29/17 06:17 96.1 92 18 143/67 (92) 03/27/17 18:00 Room Air 03/26/17 19:32 97 Current Medications Current Medications Acetaminophen (Tylenol Tab) 650 mg Q6HP PRN PO HEADACHE or DISCOMFORT Last administered on 03/28/17 19:12; Start 03/26/17 at 17:30; Stop 04/25/17 at 17:29 Al Hydrox/Mg Hydrox/Simethicone (Mylanta) 30 ml Q4HP PRN PO HEARTBURN/ INDIGESTION; Start 03/26/17 at 17:30; Stop 04/25/17 at 17:29 Aripiprazole (AbiLIFY) 5 mg QHS PO Last administered on 03/26/17 21:39; Start 03/26/17 at 21:00; Stop 03/27/17 at 08:55; Status DC Aripiprazole (Abilify Maintena) 400 mg Q30D IM ; Start 04/14/17 at 09:00; Stop 05/14/17 at 08:59 Chlorhexidine Gluconate (Peridex Oral Rinse) 15 ml TID MT Last administered on 03/29/17 08:54; Start 03/26/17 at 21:00; Stop 04/25/17 at 20:59 Fluoxetine HCl (PROzac) 20 mg DAILY PO Last administered on 03/29/17 08:53; Start 03/27/17 at 09:00; Stop 04/26/17 at 08:59 Home Med (Med Rec Complete!) ASDIRECTED XX ; Start 03/26/17 at 18:30; Stop at 18:30; Status DC Hydroxyzine HCl (Atarax) 25 mg Q8HP PRN PO ANXIETY; Start 03/26/17 at 20:45; Stop 04/25/17 at 20:44 Latanoprost (Xalatan 0.005% Op Soln) 1 drop QHS OU Last administered on 21:19; Start 03/26/17 at 21:00; Stop 04/25/17 at 20:59 Lidocaine (Lidoderm Patch) 1 patch DAILY TD Last administered on 03/27/17 09: 29; Start 03/27/17 at 09:00; Stop 04/26/17 at 08:59 Lorazepam (Ativan) 1 mg Q8HP PRN PO ANXIETY; Start 03/26/17 at 20:45; Stop 04/02 at 20:44 Magnesium Hydroxide (Milk Of Magnesia) 30 ml DAILYPRN PRN PO CONSTIPATION; Start 03/26/17 at 17:30; Stop 04/25/17 at 17:29 Non-Formulary Medication ( See Comment Field Below ) REMOVE LIDODERM PATCH DAILY@21 XX Last administered on 03/28/17 21:19; Start 03/27/17 at 21:00; Stop 04/26/17 at 20:59 Perphenazine (Trilafon) 4 mg BID PO Last administered on 03/29/17 08:53; Start 03/27/17 at 09:00; Stop 04/26/17 at 08:59 Trazodone HCl (Desyrel) 50 mg QHSP PRN PO INSOMNIA; Start 03/26/17 at 17:30; Stop 04/25/17 at 17:29 Valproic Acid (Depakene) 500 mg QAM PO Last administered on 03/29/17 08:54; Start 03/27/17 at 09:00; Stop 04/26/17 at 08:59 Valproic Acid (Depakene) 750 mg QHS PO Last administered on 03/28/17 21:18; Start 03/26/17 at 21:00; Stop 04/25/17 at 20:59 Allergies Coded Allergies: Mirella (Verified Allergy, Unknown, 02/10/08) Idania Abrams March 29, 2017 11:20
[2017-03-29 18:00] VITALS: BP 121/65
[2017-03-29] MEDS: **NOTE PATIENT COMMENT** MISC XX SCH (21:00)
[2017-03-29] MEDS: LATANOPROST 0.005% OPHTH SOLN 2.5 ML OU SCH (23:31)
[2017-03-30 06:36] VITALS: BP 128/82
[2017-03-30] MEDS: FLUoxetine 20 MG CAP PO SCH (08:25)
[2017-03-30] MEDS: VALPROIC ACID 250 MG CAP PO SCH ×2 (08:25→22:57)
[2017-03-30] MEDS: CHLORHEXIDINE GLUCONATE 0.12 % 15ML UDC (PERIDEX ORAL RINSE) MT SCH ×3 (08:25→22:58)
[2017-03-30] MEDS: PERPHENAZINE 2 MG TAB PO SCH ×2 (08:26→22:59)
[2017-03-30] MEDS: LIDOCAINE 5% (LIDODERM) PATCH TD SCH (08:26)
[2017-03-30 18:00] VITALS: BP 107/56
[2017-03-30] MEDS: **NOTE PATIENT COMMENT** MISC XX SCH (21:00)
[2017-03-30] MEDS: LATANOPROST 0.005% OPHTH SOLN 2.5 ML OU SCH (22:59)
[2017-03-30] MEDS: NYSTATIN 100,000 UNITS/GM TOPICAL PWD 15 GM TOP SCH (22:59)
[2017-03-31 06:20] VITALS: BP 105/58
[2017-03-31] MEDS: CHLORHEXIDINE GLUCONATE 0.12 % 15ML UDC (PERIDEX ORAL RINSE) MT SCH ×3 (08:28→21:11)
[2017-03-31] MEDS: FLUoxetine 20 MG CAP PO SCH (08:28)
[2017-03-31] MEDS: PERPHENAZINE 2 MG TAB PO SCH ×2 (08:28→21:12)
[2017-03-31] MEDS: NYSTATIN 100,000 UNITS/GM TOPICAL PWD 15 GM TOP SCH (08:29)
[2017-03-31] MEDS: LIDOCAINE 5% (LIDODERM) PATCH TD SCH (08:29)
[2017-03-31] MEDS: VALPROIC ACID 250 MG CAP PO SCH ×2 (08:29→21:12)
--- NOTE | 2017-03-31 12:27 | IPN ---
DATE: 03/30/2017 41-year-old with history of schizophrenic admitted to our unit for stabilization of paranoid delusions. SUBJECTIVE: "I am feeling better. I am less paranoid". OBJECTIVE: Patient is improving slowly. Is denying side effect from the medication. Is motivated for treatment. Is focused on finding a new placement since she became very anxious and paranoid with their arrangements of living at [facility]. MENTAL STATUS EXAMINATION: Patient is dressed in [facility]. Patient is cooperative. Has fair eye contact. Speech is normal in rate, volume and articulation. Mood is somewhat anxious. Affect is blunted. Patient continues with paranoid delusions. Denies auditory or visual hallucinations. Patient is able to contract for safety and denies suicidal or homicidal ideation during the interview. Insight and judgment is limited. ASSESSMENT: 1. Paranoid schizophrenia. PLAN: 1. Continue Abilify Maintena 400 mg by mouth monthly. 2. Continue Prozac 20 mg by mouth daily every morning. 3. Continue Depakote 500 mg by mouth daily every morning and 750 mg daily at bedtime. 4. Continue Trilafon 4 mg by mouth twice daily. 5. Continue close observation. 6. Continue medication management, individual and group therapy.
[2017-03-31 18:00] VITALS: BP 133/70
[2017-03-31] MEDS: **NOTE PATIENT COMMENT** MISC XX SCH ×2 (21:00→21:19)
[2017-03-31] MEDS: LATANOPROST 0.005% OPHTH SOLN 2.5 ML OU SCH (21:12)
[2017-04-01 06:24] VITALS: BP 127/61
[2017-04-01] MEDS: NYSTATIN 100,000 UNITS/GM TOPICAL PWD 15 GM TOP SCH (09:00)
[2017-04-01] MEDS: LIDOCAINE 5% (LIDODERM) PATCH TD SCH (09:00)
[2017-04-01] MEDS: CHLORHEXIDINE GLUCONATE 0.12 % 15ML UDC (PERIDEX ORAL RINSE) MT SCH ×3 (09:21→20:05)
[2017-04-01] MEDS: PERPHENAZINE 2 MG TAB PO SCH ×2 (09:21→20:05)
[2017-04-01] MEDS: FLUoxetine 20 MG CAP PO SCH (09:21)
[2017-04-01] MEDS: VALPROIC ACID 250 MG CAP PO SCH ×2 (09:21→20:06)
--- NOTE | 2017-04-01 11:35 | MHIPNPDOC ---
[facility] Progress Note Progress Note DATE OF SERVICE: 04/01/17 HISTORY: day 7 of admission VITAL SIGNS: See below. NEW TEST RESULTS: na CURRENT MEDICATIONS: See below. MENTAL STATUS EXAMINATION: Patient is a 41-year old male, who is demonstrating good hygiene, has long hair that is clean and neat, dressed appropriately and making good eye contact. Speech: Is spontaneous Language skills are intact Thought processes including: goal directed, no delusions during this conversation, remains paranoid and suspicious Thought content: placement at new [facility] residence. Abstract reasoning, and computation: good. Description of associations: good. Description of abnormal or psychotic thoughts: persistent auditory hallucinations that pt is accustomed to.NO SI or HI. Judgment: limited Insight: limited. Orientation: oriented in all spheres Recent and remote memory: intact Attention span and concentration: varies Fund of knowledge: full Mood: euthymic. Affect: anxious. DIAGNOSES: 1. Paranoid schizophrenia, chronic 2. HTN 3. hyperlipidemia 4. Glaucoma 5. Joint pain, chronic 6. Nicotine dependence 7. Poor dentition 8. h/o Pulmonary embolis in May 2016 ASSESSMENT:Pt was in good spirits. He is anxiously awaiting news of his new residence and approached promotion writer about it. Explained that TLS is making inquiries on his behalf and we have not received information of an available bed where he choses to go. Assured him we would keep him informed of any new developments but it may take until the middle of the week. Enc pt to continue unit activities. Pt has a routine on the unit that works well for him. He is pleasant and social with select peers. MANAGEMENT PLAN: continue to monitor medication response after abilify maintena injection on 03/15. Last week pt appeared slightly manic with pressured speech, preoccupation with issues of the past and taking about things not relevant. Today he was focused and organized. He reports good sleep and good appetite. No behavior problems. TIME SPENT: 30 minutes. Vital Signs Vital Signs Date Time Temp Pulse Resp B/P (MAP) Pulse Ox O2 Delivery O2 Flow Rate FiO2 04/01/17 06:24 97.3 83 18 127/61 (83) Room Air 03/26/17 19:32 97 Current Medications Current Medications Acetaminophen (Tylenol Tab) 650 mg Q6HP PRN PO HEADACHE or DISCOMFORT Last administered on 03/28/17t 19:12; Start 03/26/17 at 17:30; Stop 04/25/17 at 17:29 Al Hydrox/Mg Hydrox/Simethicone (Mylanta) 30 ml Q4HP PRN PO HEARTBURN/ INDIGESTION; Start 03/26/17 at 17:30; Stop 04/25/17 at 17:29 Aripiprazole (AbiLIFY) 5 mg QHS PO Last administered on 03/26/17 21:39; Start 03/26/17 at 21:00; Stop 03/27/17 at 08:55; Status DC Aripiprazole (Abilify Maintena) 400 mg Q30D IM ; Start 04/14/17 at 09:00; Stop 05/14/17 at 08:59 Chlorhexidine Gluconate (Peridex Oral Rinse) 15 ml TID MT Last administered on 04/01/17 09:21; Start 03/26/17 at 21:00; Stop 04/25/17 at 20:59 Fluoxetine HCl (PROzac) 20 mg DAILY PO Last administered on 04/01/17 09:21; Start 03/27/17 at 09:00; Stop 04/26/17 at 08:59 Home Med (Med Rec Complete!) ASDIRECTED XX ; Start 03/26/17 at 18:30; Stop at 18:30; Status DC Hydroxyzine HCl (Atarax) 25 mg Q8HP PRN PO ANXIETY; Start 03/26/17 at 20:45; Stop 04/25/17 at 20:44 Latanoprost (Xalatan 0.005% Op Soln) 1 drop QHS OU Last administered on 21:12; Start 03/26/17 at 21:00; Stop 04/25/17 at 20:59 Lidocaine (Lidoderm Patch) 1 patch DAILY TD Last administered on 03/31/17 08: 29; Start 03/27/17 at 09:00; Stop 04/26/17 at 08:59 Lorazepam (Ativan) 1 mg Q8HP PRN PO ANXIETY; Start 03/26/17 at 20:45; Stop 04/02 at 20:44 Magnesium Hydroxide (Milk Of Magnesia) 30 ml DAILYPRN PRN PO CONSTIPATION; Start 03/26/17 at 17:30; Stop 04/25/17 at 17:29 Nicotine (Nicorette) 4 mg Q6HP PRN PO NICOTINE WITHDRAWAL; Start 03/30/17 at 20 :45; Stop 04/29/17 at 20:44 Non-Formulary Medication ( See Comment Field Below ) REMOVE LIDODERM PATCH DAILY@21 XX Last administered on 03/28/17 21:19; Start 03/27/17 at 21:00; Stop 04/26/17 at 20:59 Nystatin (Mycostatin Powder, Nystop) DAILY TOP Last administered on 03/30/17 22:59; Start 03/30/17 at 09:00; Stop 04/29/17 at 08:59 Perphenazine (Trilafon) 4 mg BID PO Last administered on 04/01/17 09:21; Start 03/27/17 at 09:00; Stop 04/26/17 at 08:59 Trazodone HCl (Desyrel) 50 mg QHSP PRN PO INSOMNIA; Start 03/26/17 at 17:30; Stop 04/25/17 at 17:29 Valproic Acid (Depakene) 500 mg QAM PO Last administered on 04/01/17 09:21; Start 03/27/17 at 09:00; Stop 04/26/17 at 08:59 Valproic Acid (Depakene) 750 mg QHS PO Last administered on 03/31/17 21:12; Start 03/26/17 at 21:00; Stop 04/25/17 at 20:59 Allergies Coded Allergies: Mirella (Verified Allergy, Unknown, 02/10/08) Idania Abrams April 01, 2017 11:35
[2017-04-01] MEDS: NICOTINE POLACRILEX 2 MG GUM PO PRN (16:59)
[2017-04-01 18:00] VITALS: BP 113/60
[2017-04-01] MEDS: **NOTE PATIENT COMMENT** MISC XX SCH (20:06)
[2017-04-01] MEDS: LATANOPROST 0.005% OPHTH SOLN 2.5 ML OU SCH (20:06)
[2017-04-02 06:15] VITALS: BP 117/61
[2017-04-02] MEDS: NICOTINE POLACRILEX 2 MG GUM PO PRN ×2 (06:24→16:09)
[2017-04-02] MEDS: LIDOCAINE 5% (LIDODERM) PATCH TD SCH (08:01)
[2017-04-02] MEDS: NYSTATIN 100,000 UNITS/GM TOPICAL PWD 15 GM TOP SCH (08:01)
[2017-04-02] MEDS: VALPROIC ACID 250 MG CAP PO SCH ×2 (08:03→20:08)
[2017-04-02] MEDS: FLUoxetine 20 MG CAP PO SCH (08:03)
[2017-04-02] MEDS: CHLORHEXIDINE GLUCONATE 0.12 % 15ML UDC (PERIDEX ORAL RINSE) MT SCH ×3 (08:03→20:08)
[2017-04-02] MEDS: PERPHENAZINE 2 MG TAB PO SCH ×2 (08:03→20:08)
--- NOTE | 2017-04-02 13:39 | MHIPNPDOC ---
[facility] Progress Note Progress Note DATE OF SERVICE: 04/02/17 HISTORY: day 8 of admission VITAL SIGNS: See below. NEW TEST RESULTS: na CURRENT MEDICATIONS: See below. MENTAL STATUS EXAMINATION: Patient is a 41-year old male, who is dressed in pj bottoms and a t-shirt, hair is long and tied back, hygiene is good.. Speech: Is spontaneous, even rate and rhythm Language skills are good Thought processes including: goal directed, less tangential and circumstantial, some suspicion and paranoia Thought content:discharge, placement. Abstract reasoning, and computation: good. Description of associations: good. Description of abnormal or psychotic thoughts: pt is not thinking of suicide. pt is having auditory disturbance which are long-standing and never go entirely away. He hears voices, sounds and music. Judgment:fair. Insight: fair. Orientation: well oriented in all spheres. Recent and remote memory: good Attention span and concentration: adequate Fund of knowledge: adequate Mood: euthymic. Affect:congruent DIAGNOSES: 1. Paranoid schizophrenia, chronic 2. HTN 3. hyperlipidemia 4. Glaucoma 5. Joint pain, chronic 6. Nicotine dependence 7. Poor dentition 8. h/o Pulmonary embolis in May 2016 ASSESSMENT:Pt requested medication for jock itch. Request presented to Dr. Hale who ordered Nystatin. pt then refused it. on inquire pt stated he has enough for now and only uses prn. Visible in milieu. Social with select peers. No behavior issues. Complaint with unit rules and regimes. VSS. Pt requested Nicorette gum late yesterday afternoon. Using prn. MANAGEMENT PLAN: Pt states "my meds are working well for me". Compliant with med times and dosages. TLS has been contacted each day this week about placement. Awaiting call back as no one has been able to give us any information. Pt asks about placement everyday. TIME SPENT: 30 minutes. Vital Signs Vital Signs Date Time Temp Pulse Resp B/P (MAP) Pulse Ox O2 Delivery O2 Flow Rate FiO2 04/02/17 06:15 98.4 72 18 117/61 (79) Room Air Current Medications Current Medications Acetaminophen (Tylenol Tab) 650 mg Q6HP PRN PO HEADACHE or DISCOMFORT Last administered on 03/28/17t 19:12; Start 03/26/17 at 17:30; Stop 04/25/17 at 17:29 Al Hydrox/Mg Hydrox/Simethicone (Mylanta) 30 ml Q4HP PRN PO HEARTBURN/ INDIGESTION; Start 03/26/17 at 17:30; Stop 04/25/17 at 17:29 Aripiprazole (AbiLIFY) 5 mg QHS PO Last administered on 03/26/17 21:39; Start 03/26/17 at 21:00; Stop 03/27/17 at 08:55; Status DC Aripiprazole (Abilify Maintena) 400 mg Q30D IM ; Start 04/14/17 at 09:00; Stop 05/14/17 at 08:59 Chlorhexidine Gluconate (Peridex Oral Rinse) 15 ml TID MT Last administered on 04/02/17 08:03; Start 03/26/17 at 21:00; Stop 04/25/17 at 20:59 Fluoxetine HCl (PROzac) 20 mg DAILY PO Last administered on 04/02/17 08:03; Start 03/27/17 at 09:00; Stop 04/26/17 at 08:59 Home Med (Med Rec Complete!) ASDIRECTED XX ; Start 03/26/17 at 18:30; Stop at 18:30; Status DC Hydroxyzine HCl (Atarax) 25 mg Q8HP PRN PO ANXIETY; Start 03/26/17 at 20:45; Stop 04/25/17 at 20:44 Latanoprost (Xalatan 0.005% Op Soln) 1 drop QHS OU Last administered on 20:06; Start 03/26/17 at 21:00; Stop 04/25/17 at 20:59 Lidocaine (Lidoderm Patch) 1 patch DAILY TD Last administered on 03/31/17 08: 29; Start 03/27/17 at 09:00; Stop 04/26/17 at 08:59 Lorazepam (Ativan) 1 mg Q8HP PRN PO ANXIETY; Start 03/26/17 at 20:45; Stop 04/02 at 20:44; Status Cancel Magnesium Hydroxide (Milk Of Magnesia) 30 ml DAILYPRN PRN PO CONSTIPATION; Start 03/26/17 at 17:30; Stop 04/25/17 at 17:29 Nicotine (Nicorette) 4 mg Q6HP PRN PO NICOTINE WITHDRAWAL Last administered on 04/02/17 06:24; Start 03/30/17 at 20:45; Stop 04/29/17 at 20:44 Non-Formulary Medication ( See Comment Field Below ) REMOVE LIDODERM PATCH DAILY@21 XX Last administered on 03/28/17 21:19; Start 03/27/17 at 21:00; Stop 04/26/17 at 20:59 Nystatin (Mycostatin Powder, Nystop) DAILY TOP Last administered on 03/30/17 22:59; Start 03/30/17 at 09:00; Stop 04/29/17 at 08:59 Perphenazine (Trilafon) 4 mg BID PO Last administered on 04/02/17 08:03; Start 03/27/17 at 09:00; Stop 04/26/17 at 08:59 Trazodone HCl (Desyrel) 50 mg QHSP PRN PO INSOMNIA; Start 03/26/17 at 17:30; Stop 04/25/17 at 17:29 Valproic Acid (Depakene) 500 mg QAM PO Last administered on 04/02/17 08:03; Start 03/27/17 at 09:00; Stop 04/26/17 at 08:59 Valproic Acid (Depakene) 750 mg QHS PO Last administered on 04/01/17 20:06; Start 03/26/17 at 21:00; Stop 04/25/17 at 20:59 Allergies Coded Allergies: Mirella (Verified Allergy, Unknown, 02/10/08) Idania Abrams April 02, 2017 13:39
[2017-04-02 18:17] VITALS: BP 122/60
[2017-04-02] MEDS: ACETAMINOPHEN TAB 650MG DOSE (2X325MG) PO PRN (18:51)
[2017-04-02] MEDS: **NOTE PATIENT COMMENT** MISC XX SCH (20:08)
[2017-04-02] MEDS: LATANOPROST 0.005% OPHTH SOLN 2.5 ML OU SCH (20:08)
[2017-04-03 06:17] VITALS: BP 112/70
[2017-04-03] MEDS: NICOTINE POLACRILEX 2 MG GUM PO PRN ×3 (06:28→21:06)
[2017-04-03] MEDS: NYSTATIN 100,000 UNITS/GM TOPICAL PWD 15 GM TOP SCH (08:10)
[2017-04-03] MEDS: LIDOCAINE 5% (LIDODERM) PATCH TD SCH (08:10)
[2017-04-03] MEDS: FLUoxetine 20 MG CAP PO SCH (08:12)
[2017-04-03] MEDS: PERPHENAZINE 2 MG TAB PO SCH ×2 (08:12→20:05)
[2017-04-03] MEDS: CHLORHEXIDINE GLUCONATE 0.12 % 15ML UDC (PERIDEX ORAL RINSE) MT SCH ×3 (08:13→20:05)
[2017-04-03] MEDS: VALPROIC ACID 250 MG CAP PO SCH ×2 (08:13→20:05)
--- NOTE | 2017-04-03 15:22 | MHIPNPDOC ---
[facility] Progress Note Progress Note DATE OF SERVICE: 04/03/17 HISTORY: Day 9 of admission VITAL SIGNS: See below. NEW TEST RESULTS: na CURRENT MEDICATIONS: See below. MENTAL STATUS EXAMINATION: Patient is a 41-year old male, who is dressed in hospital pj bottoms and a casual top, clean with hair tied back, pleasant and smiling. Speech: Is fluent [place] Citizen, spontaneous Language skills are intact Thought processes including: flight of ideas, minimal ideas of reference, some goal directed discussion much of the time. Thought content: daily activities, new housing situation. Abstract reasoning, and computation: good Description of associations:good. Description of abnormal or psychotic thoughts: intermittent suicidal thoughts, suspicions and paranoia regarding pts and staff at [facility] continues. Judgment: fair Insight: fair. Orientation: well oriented in all spheres Recent and remote memory: intact but can be impaired when suspicious and paranoid Attention span and concentration: good Fund of knowledge: adequate Mood: euthymic. Affect:congruent. DIAGNOSES: 1. Paranoid schizophrenia, chronic 2. nicotine dependence 3. alcohol dependence in remission ASSESSMENT:Pt approached aligner typewriter immediately upon arriving on the unit. Gave a run down of his activities since awakening at 3 a.m. - rested until 5 a.m., had breakfast, shower after Yoga, etc. Pt in good spirits and future oriented. MANAGEMENT PLAN: pt continues to make request of aligner typewriter for medical medication changes. if he does not want to use his nystatin he can refuse rather than have Dr. Hale aligner typewriter a new order. Same with nicorette gum. He can refuse when he does not want it. Continue perphenazine, depakote and prn atarax. Pt due for next abilify injection on 04/14. TIME SPENT: 30 minutes. Vital Signs Vital Signs Date Time Temp Pulse Resp B/P (MAP) Pulse Ox O2 Delivery O2 Flow Rate FiO2 04/03/17 06:17 98.0 91 18 112/70 (84) Room Air Current Medications Current Medications Acetaminophen (Tylenol Tab) 650 mg Q6HP PRN PO HEADACHE or DISCOMFORT Last administered on 04/02/17t 18:51; Start 03/26/17 at 17:30; Stop 04/25/17 at 17:29 Al Hydrox/Mg Hydrox/Simethicone (Mylanta) 30 ml Q4HP PRN PO HEARTBURN/ INDIGESTION; Start 03/26/17 at 17:30; Stop 04/25/17 at 17:29 Aripiprazole (AbiLIFY) 5 mg QHS PO Last administered on 03/26/17 21:39; Start 03/26/17 at 21:00; Stop 03/27/17 at 08:55; Status DC Aripiprazole (Abilify Maintena) 400 mg Q30D IM ; Start 04/14/17 at 09:00; Stop 05/14/17 at 08:59 Chlorhexidine Gluconate (Peridex Oral Rinse) 15 ml TID MT Last administered on 04/03/17 08:13; Start 03/26/17 at 21:00; Stop 04/25/17 at 20:59 Fluoxetine HCl (PROzac) 20 mg DAILY PO Last administered on 04/03/17 08:12; Start 03/27/17 at 09:00; Stop 04/26/17 at 08:59 Home Med (Med Rec Complete!) ASDIRECTED XX ; Start 03/26/17 at 18:30; Stop at 18:30; Status DC Hydroxyzine HCl (Atarax) 25 mg Q8HP PRN PO ANXIETY; Start 03/26/17 at 20:45; Stop 04/25/17 at 20:44 Latanoprost (Xalatan 0.005% Op Soln) 1 drop QHS OU Last administered on 20:08; Start 03/26/17 at 21:00; Stop 04/25/17 at 20:59 Lidocaine (Lidoderm Patch) 1 patch DAILY TD Last administered on 03/31/17 08: 29; Start 03/27/17 at 09:00; Stop 04/26/17 at 08:59 Lorazepam (Ativan) 1 mg Q8HP PRN PO ANXIETY; Start 03/26/17 at 20:45; Stop 04/02 at 20:44; Status Cancel Magnesium Hydroxide (Milk Of Magnesia) 30 ml DAILYPRN PRN PO CONSTIPATION; Start 03/26/17 at 17:30; Stop 04/25/17 at 17:29 Nicotine (Nicorette) 4 mg Q6HP PRN PO NICOTINE WITHDRAWAL Last administered on 04/03/17 14:52; Start 03/30/17 at 20:45; Stop 04/29/17 at 20:44 Non-Formulary Medication ( See Comment Field Below ) REMOVE LIDODERM PATCH DAILY@21 XX Last administered on 03/28/17 21:19; Start 03/27/17 at 21:00; Stop 04/26/17 at 20:59 Nystatin (Mycostatin Powder, Nystop) DAILY TOP Last administered on 03/30/17 22:59; Start 03/30/17 at 09:00; Stop 04/29/17 at 08:59 Perphenazine (Trilafon) 4 mg BID PO Last administered on 04/03/17 08:12; Start 03/27/17 at 09:00; Stop 04/26/17 at 08:59 Trazodone HCl (Desyrel) 50 mg QHSP PRN PO INSOMNIA; Start 03/26/17 at 17:30; Stop 04/25/17 at 17:29 Valproic Acid (Depakene) 500 mg QAM PO Last administered on 04/03/17 08:13; Start 03/27/17 at 09:00; Stop 04/26/17 at 08:59 Valproic Acid (Depakene) 750 mg QHS PO Last administered on 04/02/17 20:08; Start 03/26/17 at 21:00; Stop 04/25/17 at 20:59 Allergies Coded Allergies: Mirella (Verified Allergy, Unknown, 02/10/08) Idania Abrams April 03, 2017 15:21
[2017-04-03 18:09] VITALS: BP 131/76
[2017-04-03] MEDS: **NOTE PATIENT COMMENT** MISC XX SCH (20:06)
[2017-04-03] MEDS: LATANOPROST 0.005% OPHTH SOLN 2.5 ML OU SCH (20:06)
[2017-04-04] MEDS: NICOTINE POLACRILEX 2 MG GUM PO PRN ×3 (05:43→19:57)
[2017-04-04 06:30] VITALS: BP 114/71
[2017-04-04] MEDS: PERPHENAZINE 2 MG TAB PO SCH ×2 (08:07→21:03)
[2017-04-04] MEDS: FLUoxetine 20 MG CAP PO SCH (08:07)
[2017-04-04] MEDS: CHLORHEXIDINE GLUCONATE 0.12 % 15ML UDC (PERIDEX ORAL RINSE) MT SCH ×3 (08:07→21:03)
[2017-04-04] MEDS: VALPROIC ACID 250 MG CAP PO SCH ×2 (08:08→21:03)
[2017-04-04] MEDS: LIDOCAINE 5% (LIDODERM) PATCH TD SCH (08:08)
[2017-04-04] MEDS: NYSTATIN 100,000 UNITS/GM TOPICAL PWD 15 GM TOP SCH (08:08)
--- NOTE | 2017-04-04 15:26 | MHIPNPDOC ---
[facility] Progress Note Progress Note DATE OF SERVICE: 04/04/17 HISTORY: day 10 of admission VITAL SIGNS: See below. NEW TEST RESULTS: na CURRENT MEDICATIONS: See below. MENTAL STATUS EXAMINATION: Patient is a 41-year old male, who is appropriately attired, good hygiene, good eye contact appears stated age. Speech: Is clear and spontaneous Language skills are good Thought processes including: logical Thought content: medications Abstract reasoning, and computation: fair. Description of associations: good. Description of abnormal or psychotic thoughts: reports ongoing auditory disturbance of sounds, music and voices. some thoughts of suicidal actions without intent or plan. Judgment: fair Insight: fair. Orientation: oriented to person, place time and situation. Recent and remote memory: intact Attention span and concentration: good Fund of knowledge: adequate. Mood: euthymic. Affect:anxious. DIAGNOSES: 1. Paranoid schizophrenia, chronic 2. HTN 3. hyperlipidemia 4. Glaucoma 5. Joint pain, chronic 6. Nicotine dependence 7. Poor dentition 8. h/o Pulmonary embolis in May 2016 ASSESSMENT:Pt approached typewriter aligner to report he feels good on his medication and he does not want any medication changes. Assured him none would be done at this time. He denies any side effects, no nausea or constipation. He is sleeping and eating well. he attends programming. Minimal interaction with select peers. Appears to have less internal stimuli and not preoccupied with issues from the past. MANAGEMENT PLAN: continue medications and observational status. Still waiting for information from [facility]. Our staff calls everyday but no call back. TIME SPENT: 30 minutes. Vital Signs Vital Signs Date Time Temp Pulse Resp B/P (MAP) Pulse Ox O2 Delivery O2 Flow Rate FiO2 04/04/17 06:30 98.5 82 22 114/71 (85) 04/03/17 06:17 Room Air Current Medications Current Medications Acetaminophen (Tylenol Tab) 650 mg Q6HP PRN PO HEADACHE or DISCOMFORT Last administered on 04/02/17t 18:51; Start 03/26/17 at 17:30; Stop 04/25/17 at 17:29 Al Hydrox/Mg Hydrox/Simethicone (Mylanta) 30 ml Q4HP PRN PO HEARTBURN/ INDIGESTION; Start 03/26/17 at 17:30; Stop 04/25/17 at 17:29 Aripiprazole (AbiLIFY) 5 mg QHS PO Last administered on 03/26/17 21:39; Start 03/26/17 at 21:00; Stop 03/27/17 at 08:55; Status DC Aripiprazole (Abilify Maintena) 400 mg Q30D IM ; Start 04/14/17 at 09:00; Stop 05/14/17 at 08:59 Chlorhexidine Gluconate (Peridex Oral Rinse) 15 ml TID MT Last administered on 04/04/17 08:07; Start 03/26/17 at 21:00; Stop 04/25/17 at 20:59 Fluoxetine HCl (PROzac) 20 mg DAILY PO Last administered on 04/04/17 08:07; Start 03/27/17 at 09:00; Stop 04/26/17 at 08:59 Home Med (Med Rec Complete!) ASDIRECTED XX ; Start 03/26/17 at 18:30; Stop at 18:30; Status DC Hydroxyzine HCl (Atarax) 25 mg Q8HP PRN PO ANXIETY; Start 03/26/17 at 20:45; Stop 04/25/17 at 20:44 Latanoprost (Xalatan 0.005% Op Soln) 1 drop QHS OU Last administered on 20:06; Start 03/26/17 at 21:00; Stop 04/25/17 at 20:59 Lidocaine (Lidoderm Patch) 1 patch DAILY TD Last administered on 03/31/17 08: 29; Start 03/27/17 at 09:00; Stop 04/26/17 at 08:59 Lorazepam (Ativan) 1 mg Q8HP PRN PO ANXIETY; Start 03/26/17 at 20:45; Stop 04/02 at 20:44; Status Cancel Magnesium Hydroxide (Milk Of Magnesia) 30 ml DAILYPRN PRN PO CONSTIPATION; Start 03/26/17 at 17:30; Stop 04/25/17 at 17:29 Nicotine (Nicorette) 4 mg Q6HP PRN PO NICOTINE WITHDRAWAL Last administered on 04/04/17 13:08; Start 03/30/17 at 20:45; Stop 04/29/17 at 20:44 Non-Formulary Medication ( See Comment Field Below ) REMOVE LIDODERM PATCH DAILY@21 XX Last administered on 03/28/17 21:19; Start 03/27/17 at 21:00; Stop 04/26/17 at 20:59 Nystatin (Mycostatin Powder, Nystop) DAILY TOP Last administered on 03/30/17 22:59; Start 03/30/17 at 09:00; Stop 04/29/17 at 08:59 Perphenazine (Trilafon) 4 mg BID PO Last administered on 04/04/17 08:07; Start 03/27/17 at 09:00; Stop 04/26/17 at 08:59 Trazodone HCl (Desyrel) 50 mg QHSP PRN PO INSOMNIA; Start 03/26/17 at 17:30; Stop 04/25/17 at 17:29 Valproic Acid (Depakene) 500 mg QAM PO Last administered on 04/04/17 08:08; Start 03/27/17 at 09:00; Stop 04/26/17 at 08:59 Valproic Acid (Depakene) 750 mg QHS PO Last administered on 04/03/17 20:05; Start 03/26/17 at 21:00; Stop 04/25/17 at 20:59 Allergies Coded Allergies: Mirella (Verified Allergy, Unknown, 02/10/08) Idania Abrams April 04, 2017 15:26
[2017-04-04 18:00] VITALS: BP 128/77
[2017-04-04] MEDS: **NOTE PATIENT COMMENT** MISC XX SCH (21:00)
[2017-04-04] MEDS: LATANOPROST 0.005% OPHTH SOLN 2.5 ML OU SCH (21:03)
[2017-04-05 06:30] VITALS: BP_SYST 117; BP_SYST 120; BP_DIAS 57; BP_DIAS 67
[2017-04-05] MEDS: NICOTINE POLACRILEX 2 MG GUM PO PRN ×2 (06:36→14:22)
[2017-04-05] MEDS: ACETAMINOPHEN TAB 650MG DOSE (2X325MG) PO PRN ×2 (07:36→16:31)
[2017-04-05] MEDS: LIDOCAINE 5% (LIDODERM) PATCH TD SCH (08:03)
[2017-04-05] MEDS: VALPROIC ACID 250 MG CAP PO SCH ×2 (08:05→20:59)
[2017-04-05] MEDS: PERPHENAZINE 2 MG TAB PO SCH ×2 (08:05→20:59)
[2017-04-05] MEDS: FLUoxetine 20 MG CAP PO SCH (08:05)
[2017-04-05] MEDS: CHLORHEXIDINE GLUCONATE 0.12 % 15ML UDC (PERIDEX ORAL RINSE) MT SCH ×3 (08:05→20:59)
[2017-04-05] MEDS: NYSTATIN 100,000 UNITS/GM TOPICAL PWD 15 GM TOP SCH (08:07)
--- NOTE | 2017-04-05 11:50 | MHIPNPDOC ---
[facility] Progress Note Progress Note DATE OF SERVICE: 04/05/17 HISTORY: day 11 of admission VITAL SIGNS: See below. NEW TEST RESULTS: na CURRENT MEDICATIONS: See below. MENTAL STATUS EXAMINATION: Patient is a 41-year old male, who is wearing appropriate attire, good hygiene, even mood, cooperative. Speech: Is rapid, repeats the last stated word he is conversing with. Language skills are intact Thought processes including: goal directed, presents with some rigid and concrete thoughts, suspicious and paranoid, periodically expressed delusions Thought content: appropriate Abstract reasoning, and computation: good. Description of associations: good Description of abnormal or psychotic thoughts: ongoing auditory disturbance that pt tolerates daily. No thoughts of suicide or homicide. Judgment: good Insight: fair. Orientation:oriented to person, place, time and situation. Recent and remote memory: intact Attention span and concentration: adequate Fund of knowledge: adequate Mood: euthymic. Affect: smiling DIAGNOSES: 1. Paranoid schizophrenia, chronic 2. HTN 3. hyperlipidemia 4. Glaucoma 5. Joint pain, chronic 6. Nicotine dependence 7. Poor dentition 8. h/o Pulmonary embolis in May 2016 ASSESSMENT:Pt is pleasant, social with select peers, actively participates in programming. Eating and sleeping well. No medical concerns. Is taking medication as prescribes. No anxiety or panic attacks. Not acutely psychotic. No behavior issues on the unit. Pt continues to erport his medication is workign well and he denies side effects. Feels he may be gaining weight which hopefully he can lose again once he is out in the community and able to walk around more than here. MANAGEMENT PLAN: process planner makes continual efforts about discharge from [facility]. She was informed today that the [facility] is going to see about moving some people around to accommodate Brandt's request to return to [facility] but in a different location. Brandt immediately begins to get anxiety worrying that the staff from the [facility] in [place] will turn up working at the [facility] in [place] that he will be moving to. Spent time talking to Brandt about staying in the moment and not projecting this thinking in this manner. Enc him to spend some time at the new location before rushing to judgment. Enc him to get a thicker skin so he is not so affected by others but can let go of things more easily. TIME SPENT: 30 minutes. Vital Signs Vital Signs Date Time Temp Pulse Resp B/P (MAP) Pulse Ox O2 Delivery O2 Flow Rate FiO2 04/05/17 06:30 98.5 63 18 117/57 (77) 04/03/17 06:17 Room Air Current Medications Current Medications Acetaminophen (Tylenol Tab) 650 mg Q6HP PRN PO HEADACHE or DISCOMFORT Last administered on 04/05/17 07:36; Start 03/26/17 at 17:30; Stop 04/25/17 at 17:29 Al Hydrox/Mg Hydrox/Simethicone (Mylanta) 30 ml Q4HP PRN PO HEARTBURN/ INDIGESTION; Start 03/26/17 at 17:30; Stop 04/25/17 at 17:29 Aripiprazole (AbiLIFY) 5 mg QHS PO Last administered on 03/26/17 21:39; Start 03/26/17 at 21:00; Stop 03/27/17 at 08:55; Status DC Aripiprazole (Abilify Maintena) 400 mg Q30D IM ; Start 04/14/17 at 09:00; Stop 05/14/17 at 08:59 Chlorhexidine Gluconate (Peridex Oral Rinse) 15 ml TID MT Last administered on 04/05/17 08:05; Start 03/26/17 at 21:00; Stop 04/25/17 at 20:59 Fluoxetine HCl (PROzac) 20 mg DAILY PO Last administered on 04/05/17 08:05; Start 03/27/17 at 09:00; Stop 04/26/17 at 08:59 Home Med (Med Rec Complete!) ASDIRECTED XX ; Start 03/26/17 at 18:30; Stop at 18:30; Status DC Hydroxyzine HCl (Atarax) 25 mg Q8HP PRN PO ANXIETY; Start 03/26/17 at 20:45; Stop 04/25/17 at 20:44 Latanoprost (Xalatan 0.005% Op Soln) 1 drop QHS OU Last administered on 21:03; Start 03/26/17 at 21:00; Stop 04/25/17 at 20:59 Lidocaine (Lidoderm Patch) 1 patch DAILY TD Last administered on 03/31/17 08: 29; Start 03/27/17 at 09:00; Stop 04/26/17 at 08:59 Lorazepam (Ativan) 1 mg Q8HP PRN PO ANXIETY; Start 03/26/17 at 20:45; Stop 04/02 at 20:44; Status Cancel Magnesium Hydroxide (Milk Of Magnesia) 30 ml DAILYPRN PRN PO CONSTIPATION; Start 03/26/17 at 17:30; Stop 04/25/17 at 17:29 Nicotine (Nicorette) 4 mg Q6HP PRN PO NICOTINE WITHDRAWAL Last administered on 04/05/17 06:36; Start 03/30/17 at 20:45; Stop 04/29/17 at 20:44 Non-Formulary Medication ( See Comment Field Below ) REMOVE LIDODERM PATCH DAILY@21 XX Last administered on 03/28/17 21:19; Start 03/27/17 at 21:00; Stop 04/26/17 at 20:59 Nystatin (Mycostatin Powder, Nystop) DAILY TOP Last administered on 03/30/17 22:59; Start 03/30/17 at 09:00; Stop 04/29/17 at 08:59 Perphenazine (Trilafon) 4 mg BID PO Last administered on 04/05/17 08:05; Start 03/27/17 at 09:00; Stop 04/26/17 at 08:59 Trazodone HCl (Desyrel) 50 mg QHSP PRN PO INSOMNIA; Start 03/26/17 at 17:30; Stop 04/25/17 at 17:29 Valproic Acid (Depakene) 500 mg QAM PO Last administered on 04/05/17 08:05; Start 03/27/17 at 09:00; Stop 04/26/17 at 08:59 Valproic Acid (Depakene) 750 mg QHS PO Last administered on 04/04/17 21:03; Start 03/26/17 at 21:00; Stop 04/25/17 at 20:59 Allergies Coded Allergies: Mirella (Verified Allergy, Unknown, 02/10/08) Idania Abrams April 05, 2017 11:50
[2017-04-05 18:13] VITALS: BP 124/59
[2017-04-05] MEDS: **NOTE PATIENT COMMENT** MISC XX SCH (20:57)
[2017-04-05] MEDS: LATANOPROST 0.005% OPHTH SOLN 2.5 ML OU SCH (20:59)
[2017-04-06] MEDS: ACETAMINOPHEN TAB 650MG DOSE (2X325MG) PO PRN ×2 (03:55→18:26)
[2017-04-06 06:05] VITALS: BP 129/65
[2017-04-06] MEDS: NYSTATIN 100,000 UNITS/GM TOPICAL PWD 15 GM TOP SCH (09:00)
[2017-04-06] MEDS: LIDOCAINE 5% (LIDODERM) PATCH TD SCH (09:00)
[2017-04-06] MEDS: FLUoxetine 20 MG CAP PO SCH (09:35)
[2017-04-06] MEDS: VALPROIC ACID 250 MG CAP PO SCH ×2 (09:35→21:06)
[2017-04-06] MEDS: CHLORHEXIDINE GLUCONATE 0.12 % 15ML UDC (PERIDEX ORAL RINSE) MT SCH ×3 (09:36→21:05)
[2017-04-06] MEDS: NICOTINE POLACRILEX 2 MG GUM PO PRN ×2 (13:35→23:08)
[2017-04-06 18:14] VITALS: BP 123/65
[2017-04-06] MEDS: **NOTE PATIENT COMMENT** MISC XX SCH (21:00)
[2017-04-06] MEDS: PERPHENAZINE 2 MG TAB PO SCH (21:06)
[2017-04-06] MEDS: LATANOPROST 0.005% OPHTH SOLN 2.5 ML OU SCH (21:06)
[2017-04-07 06:20] VITALS: BP 148/82
[2017-04-07] MEDS: ACETAMINOPHEN TAB 650MG DOSE (2X325MG) PO PRN ×2 (07:49→20:22)
[2017-04-07] MEDS: NICOTINE POLACRILEX 2 MG GUM PO PRN ×3 (07:49→20:21)
[2017-04-07] MEDS: LIDOCAINE 5% (LIDODERM) PATCH TD SCH (09:00)
[2017-04-07] MEDS: NYSTATIN 100,000 UNITS/GM TOPICAL PWD 15 GM TOP SCH (09:00)
[2017-04-07] MEDS: FLUoxetine 20 MG CAP PO SCH (09:31)
[2017-04-07] MEDS: CHLORHEXIDINE GLUCONATE 0.12 % 15ML UDC (PERIDEX ORAL RINSE) MT SCH ×3 (09:31→20:21)
[2017-04-07] MEDS: VALPROIC ACID 250 MG CAP PO SCH ×2 (09:31→20:21)
[2017-04-07 18:00] VITALS: BP 130/66
[2017-04-07] MEDS: LATANOPROST 0.005% OPHTH SOLN 2.5 ML OU SCH (20:19)
[2017-04-07] MEDS: **NOTE PATIENT COMMENT** MISC XX SCH (20:21)
[2017-04-07] MEDS: PERPHENAZINE 2 MG TAB PO SCH (20:21)
[2017-04-08 06:18] VITALS: BP 139/68
[2017-04-08] MEDS: NICOTINE POLACRILEX 2 MG GUM PO PRN ×3 (06:36→19:30)
[2017-04-08] MEDS: CHLORHEXIDINE GLUCONATE 0.12 % 15ML UDC (PERIDEX ORAL RINSE) MT SCH ×3 (08:36→20:22)
[2017-04-08] MEDS: NYSTATIN 100,000 UNITS/GM TOPICAL PWD 15 GM TOP SCH (08:37)
[2017-04-08] MEDS: FLUoxetine 20 MG CAP PO SCH (08:37)
[2017-04-08] MEDS: LIDOCAINE 5% (LIDODERM) PATCH TD SCH (08:37)
[2017-04-08] MEDS: VALPROIC ACID 250 MG CAP PO SCH ×2 (10:06→20:22)
--- NOTE | 2017-04-08 13:24 | MHIPNPDOC ---
[facility] Progress Note Progress Note DATE OF SERVICE: 04/08/17 HISTORY: day 14 of admission VITAL SIGNS: See below. NEW TEST RESULTS: na CURRENT MEDICATIONS: See below. MENTAL STATUS EXAMINATION: Patient is a 42-year old male, who is appropriately attired for the unit, clean , cooperative and makes adequate eye contact. Speech: Is fluent French, spontaneous Language skills are good Thought processes including: suspicion, paranoia of others, Thought content: appropriate. Abstract reasoning, and computation: good. Description of associations: good. Description of abnormal or psychotic thoughts: continual auditory disturbance that pt has learned to manage. No SI. Judgment: fair Insight: fair. Orientation: oriented in all spheres Recent and remote memory: good Attention span and concentration: varies Fund of knowledge: good. Mood: anxious. Affect:anxious. DIAGNOSES: 1. Paranoid schizophrenia, chronic 2. HTN 3. hyperlipidemia 4. Glaucoma 5. Joint pain, chronic 6. Nicotine dependence 7. Poor dentition 8. h/o Pulmonary embolis in May 2016 ASSESSMENT:Pt is anxiously awaiting a discharge date when he has somewhere to go. [facility] is trying to accommodate his request for a new placement but this means other pts have to get switched around. Pt is worried some of the old staff from [place] will be working at his new location and reassurance to wait and see is needed to help him not get too far ahead of himself. He is already asking about his injection that is not due until 04/14. He does not report any acute symptoms that require additional antipsychotics at this time. appetite is good, sleep is good. MANAGEMENT PLAN: continue meds and close observation. encourage engagement with programs and peers. Pt is aware he has atarx prn for anxiety if he needs it. He just has to ask the med nurse. TIME SPENT: 15 minutes. Vital Signs Vital Signs Date Time Temp Pulse Resp B/P (MAP) Pulse Ox O2 Delivery O2 Flow Rate FiO2 04/08/17 06:18 98.1 70 18 139/68 (91) Room Air Current Medications Current Medications Acetaminophen (Tylenol Tab) 650 mg Q6HP PRN PO HEADACHE or DISCOMFORT Last administered on 04/07/17t 20:22; Start 03/26/17 at 17:30; Stop 04/25/17 at 17:29 Al Hydrox/Mg Hydrox/Simethicone (Mylanta) 30 ml Q4HP PRN PO HEARTBURN/ INDIGESTION; Start 03/26/17 at 17:30; Stop 04/25/17 at 17:29 Aripiprazole (AbiLIFY) 5 mg QHS PO Last administered on 03/26/17 21:39; Start 03/26/17 at 21:00; Stop 03/27/17 at 08:55; Status DC Aripiprazole (Abilify Maintena) 400 mg Q30D IM ; Start 04/14/17 at 09:00; Stop 05/14/17 at 08:59 Chlorhexidine Gluconate (Peridex Oral Rinse) 15 ml TID MT Last administered on 04/08/17 08:36; Start 03/26/17 at 21:00; Stop 04/25/17 at 20:59 Fluoxetine HCl (PROzac) 20 mg DAILY PO Last administered on 04/08/17 08:37; Start 03/27/17 at 09:00; Stop 04/26/17 at 08:59 Home Med (Med Rec Complete!) ASDIRECTED XX ; Start 03/26/17 at 18:30; Stop at 18:30; Status DC Hydroxyzine HCl (Atarax) 25 mg Q8HP PRN PO ANXIETY; Start 03/26/17 at 20:45; Stop 04/25/17 at 20:44 Latanoprost (Xalatan 0.005% Op Soln) 1 drop QHS OU Last administered on 20:19; Start 03/26/17 at 21:00; Stop 04/25/17 at 20:59 Lidocaine (Lidoderm Patch) 1 patch DAILY TD Last administered on 03/31/17 08: 29; Start 03/27/17 at 09:00; Stop 04/26/17 at 08:59 Lorazepam (Ativan) 1 mg Q8HP PRN PO ANXIETY; Start 03/26/17 at 20:45; Stop 04/02 at 20:44; Status Cancel Magnesium Hydroxide (Milk Of Magnesia) 30 ml DAILYPRN PRN PO CONSTIPATION; Start 03/26/17 at 17:30; Stop 04/25/17 at 17:29 Nicotine (Nicorette) 4 mg Q6HP PRN PO NICOTINE WITHDRAWAL Last administered on 04/08/17 13:13; Start 03/30/17 at 20:45; Stop 04/29/17 at 20:44 Non-Formulary Medication ( See Comment Field Below ) REMOVE LIDODERM PATCH DAILY@21 XX Last administered on 03/28/17 21:19; Start 03/27/17 at 21:00; Stop 04/26/17 at 20:59 Nystatin (Mycostatin Powder, Nystop) DAILY TOP Last administered on 03/30/17 22:59; Start 03/30/17 at 09:00; Stop 04/29/17 at 08:59 Perphenazine (Trilafon) 4 mg BID PO Last administered on 04/05/17 20:59; Start 03/27/17 at 09:00; Stop 04/05/17 at 23:59; Status DC Perphenazine (Trilafon) 8 mg QHS PO Last administered on 04/07/17 20:21; Start 04/06/17 at 21:00; Stop 05/06/17 at 20:59 Trazodone HCl (Desyrel) 50 mg QHSP PRN PO INSOMNIA; Start 03/26/17 at 17:30; Stop 04/25/17 at 17:29 Valproic Acid (Depakene) 500 mg QAM PO Last administered on 04/08/17 10:06; Start 03/27/17 at 09:00; Stop 04/26/17 at 08:59 Valproic Acid (Depakene) 750 mg QHS PO Last administered on 04/07/17 20:21; Start 03/26/17 at 21:00; Stop 04/25/17 at 20:59 Allergies Coded Allergies: Mirella (Verified Allergy, Unknown, 02/10/08) Idania Arbams April 08, 2017 13:24
[2017-04-08 18:00] VITALS: BP 107/59
[2017-04-08] MEDS: LATANOPROST 0.005% OPHTH SOLN 2.5 ML OU SCH (20:22)
[2017-04-08] MEDS: PERPHENAZINE 2 MG TAB PO SCH (20:22)
[2017-04-08] MEDS: **NOTE PATIENT COMMENT** MISC XX SCH (20:23)
[2017-04-09 06:50] VITALS: BP 113/57
[2017-04-09] MEDS: NICOTINE POLACRILEX 2 MG GUM PO PRN ×3 (07:46→21:42)
[2017-04-09] MEDS: NYSTATIN 100,000 UNITS/GM TOPICAL PWD 15 GM TOP SCH (09:00)
[2017-04-09] MEDS: LIDOCAINE 5% (LIDODERM) PATCH TD SCH (09:00)
[2017-04-09] MEDS: CHLORHEXIDINE GLUCONATE 0.12 % 15ML UDC (PERIDEX ORAL RINSE) MT SCH ×3 (09:19→21:05)
[2017-04-09] MEDS: VALPROIC ACID 250 MG CAP PO SCH ×2 (09:20→21:05)
[2017-04-09] MEDS: FLUoxetine 20 MG CAP PO SCH (09:20)
--- NOTE | 2017-04-09 14:33 | MHIPNPDOC ---
[facility] Progress Note Progress Note DATE OF SERVICE: 04/09/17 HISTORY: day 15 of admission. VITAL SIGNS: See below. NEW TEST RESULTS: na CURRENT MEDICATIONS: See below. MENTAL STATUS EXAMINATION: Patient is a 42-year old male, who is appropriately attired, long hair tied back , clean and cooperative with good eye contact. Speech: Is spontaneous Language skills are intact Thought processes including: paranoia, suspicions, some goal directed speech. Thought content: discharge and placement and shot. Abstract reasoning, and computation: good. Description of associations: good. Description of abnormal or psychotic thoughts: pt reports he always has auditory hallucinations of some kind be it voices or music or sounds. Pt remains suspicious and paranoid Judgment: fair. Insight: good. Orientation: well oriented Recent and remote memory: good Attention span and concentration: good. Fund of knowledge: full Mood: euthymic. Affect: congruent DIAGNOSES: 1. Paranoid schizophrenia, chronic 2. nicotine dependence 3. ASSESSMENT: Pt is tolerating meds very well. We received word today that a bed will be available early next week at [facility] in [place] via [facility]. Pt is excited to be leaving. He feels he is ready to go. Encouraged not to project to much onto his placement and the staff and what so and so will do or say. Pt keeps talking about his shot that is due on 04/14 and he can receive that prior to leaving the hospital so he will be all set as far as that goes. Pt is visible in milieu and preoccupied with the news he will be discharged next week. He feels he will be safe and he denies any thoughts of self harm or danger to others. Pt is attending programs and doing well. MANAGEMENT PLAN: monitor psychiatric medication, encourage healthy coping skills , monitor thought process. Brandt stated he likes the perphenazine all at night as he does not awaken so early in the am. at 4 o'clock. He states he also goes to sleep faster at night. TIME SPENT: 15 minutes. Vital Signs Vital Signs Date Time Temp Pulse Resp B/P (MAP) Pulse Ox O2 Delivery O2 Flow Rate FiO2 04/09/17 06:50 97.9 65 18 113/57 (75) 04/08/17 06:18 Room Air Current Medications Current Medications Acetaminophen (Tylenol Tab) 650 mg Q6HP PRN PO HEADACHE or DISCOMFORT Last administered on 04/07/17 20:22; Start 03/26/17 at 17:30; Stop 04/25/17 at 17:29 Al Hydrox/Mg Hydrox/Simethicone (Mylanta) 30 ml Q4HP PRN PO HEARTBURN/ INDIGESTION; Start 03/26/17 at 17:30; Stop 04/25/17 at 17:29 Aripiprazole (AbiLIFY) 5 mg QHS PO Last administered on 03/26/17 21:39; Start 03/26/17 at 21:00; Stop 03/27/17 at 08:55; Status DC Aripiprazole (Abilify Maintena) 400 mg Q30D IM ; Start 04/14/17 at 09:00; Stop 05/14/17 at 08:59 Chlorhexidine Gluconate (Peridex Oral Rinse) 15 ml TID MT Last administered on 04/09/17 09:19; Start 03/26/17 at 21:00; Stop 04/25/17 at 20:59 Fluoxetine HCl (PROzac) 20 mg DAILY PO Last administered on 04/09/17 09:20; Start 03/27/17 at 09:00; Stop 04/26/17 at 08:59 Home Med (Med Rec Complete!) ASDIRECTED XX ; Start 03/26/17 at 18:30; Stop at 18:30; Status DC Hydroxyzine HCl (Atarax) 25 mg Q8HP PRN PO ANXIETY; Start 03/26/17 at 20:45; Stop 04/25/17 at 20:44 Latanoprost (Xalatan 0.005% Op Soln) 1 drop QHS OU Last administered on 20:22; Start 03/26/17 at 21:00; Stop 04/25/17 at 20:59 Lidocaine (Lidoderm Patch) 1 patch DAILY TD Last administered on 03/31/17 08: 29; Start 03/27/17 at 09:00; Stop 04/26/17 at 08:59 Lorazepam (Ativan) 1 mg Q8HP PRN PO ANXIETY; Start 03/26/17 at 20:45; Stop 04/02 at 20:44; Status Cancel Magnesium Hydroxide (Milk Of Magnesia) 30 ml DAILYPRN PRN PO CONSTIPATION; Start 03/26/17 at 17:30; Stop 04/25/17 at 17:29 Nicotine (Nicorette) 4 mg Q6HP PRN PO NICOTINE WITHDRAWAL Last administered on 04/09/17 07:46; Start 03/30/17 at 20:45; Stop 04/29/17 at 20:44 Non-Formulary Medication ( See Comment Field Below ) REMOVE LIDODERM PATCH DAILY@21 XX Last administered on 03/28/17 21:19; Start 03/27/17 at 21:00; Stop 04/26/17 at 20:59 Nystatin (Mycostatin Powder, Nystop) DAILY TOP Last administered on 03/30/17 22:59; Start 03/30/17 at 09:00; Stop 04/29/17 at 08:59 Perphenazine (Trilafon) 4 mg BID PO Last administered on 04/05/17 20:59; Start 03/27/17 at 09:00; Stop 04/05/17 at 23:59; Status DC Perphenazine (Trilafon) 8 mg QHS PO Last administered on 04/08/17 20:22; Start 04/06/17 at 21:00; Stop 05/06/17 at 20:59 Trazodone HCl (Desyrel) 50 mg QHSP PRN PO INSOMNIA; Start 03/26/17 at 17:30; Stop 04/25/17 at 17:29 Valproic Acid (Depakene) 500 mg QAM PO Last administered on 04/09/17 09:20; Start 03/27/17 at 09:00; Stop 04/26/17 at 08:59 Valproic Acid (Depakene) 750 mg QHS PO Last administered on 04/08/17 20:22; Start 03/26/17 at 21:00; Stop 04/25/17 at 20:59 Allergies Coded Allergies: Mirella (Verified Allergy, Unknown, 02/10/08) Idania Abrams April 09, 2017 14:33
[2017-04-09 18:00] VITALS: BP 120/77
[2017-04-09] MEDS: **NOTE PATIENT COMMENT** MISC XX SCH (21:00)
[2017-04-09] MEDS: PERPHENAZINE 2 MG TAB PO SCH (21:05)
[2017-04-09] MEDS: LATANOPROST 0.005% OPHTH SOLN 2.5 ML OU SCH (21:07)
[2017-04-10 06:49] VITALS: BP 126/62
[2017-04-10] MEDS: FLUoxetine 20 MG CAP PO SCH (07:58)
[2017-04-10] MEDS: NYSTATIN 100,000 UNITS/GM TOPICAL PWD 15 GM TOP SCH (07:59)
[2017-04-10] MEDS: NICOTINE POLACRILEX 2 MG GUM PO PRN ×3 (07:59→21:16)
[2017-04-10] MEDS: VALPROIC ACID 250 MG CAP PO SCH ×2 (07:59→21:13)
[2017-04-10] MEDS: LIDOCAINE 5% (LIDODERM) PATCH TD SCH (07:59)
[2017-04-10] MEDS: CHLORHEXIDINE GLUCONATE 0.12 % 15ML UDC (PERIDEX ORAL RINSE) MT SCH ×3 (07:59→21:12)
--- NOTE | 2017-04-10 10:19 | MHIPNPDOC ---
[facility] Progress Note Progress Note DATE OF SERVICE: 04/10/17 HISTORY: Day 16. Pt admitted with paranoia and suspicion directed at staff where he is living. Pt threatening suicide. VITAL SIGNS: See below. NEW TEST RESULTS: na CURRENT MEDICATIONS: See below. MENTAL STATUS EXAMINATION: Patient is a 42-year old male, who is casually attired in street clothes and shoes, long hair, lying on his bed, cooperative. Speech: Is spontaneous Language skills are intact Thought processes including: suspicions, paranoia, persecutory delusions Thought content: discharge, shot Abstract reasoning, and computation: fair. Description of associations: good. Description of abnormal or psychotic thoughts: Ongoing auditory disturbance, denies SI. Judgment: fair Insight: fair Orientation: well oriented in all spheres. Recent and remote memory: intact Attention span and concentration: poor today Fund of knowledge: average. Mood: "I'm tired today" . Affect: congruent DIAGNOSES: 1. Paranoid schizophrenia, chronic ASSESSMENT:Pt states he is tired even though he slept well last night. He denies feeling ill. He is future oriented and looking forward to leaving the hospital when his bed is available which is scheduled for April 16. Pt reports good appetite. Denies side effects to medications. Impulses are controlled. He is not having voices tell him to harm himself or others. He hears voices frequently everyday. He is pleasant and cooperative on the unit. He gets along with peers and is even helpful towards others at times. He is often tangential and circumstantial in conversation. He responds well to redirection. MANAGEMENT PLAN: continue all interventions of med mgt, observation, safe environment, therapeutic activities, evaluation. TIME SPENT: 15 minutes. Vital Signs Vital Signs Date Time Temp Pulse Resp B/P (MAP) Pulse Ox O2 Delivery O2 Flow Rate FiO2 04/10/17 06:49 98.0 93 18 126/62 (83) 04/08/17 06:18 Room Air Current Medications Current Medications Acetaminophen (Tylenol Tab) 650 mg Q6HP PRN PO HEADACHE or DISCOMFORT Last administered on 04/07/17t 20:22; Start 03/26/17 at 17:30; Stop 04/25/17 at 17:29 Al Hydrox/Mg Hydrox/Simethicone (Mylanta) 30 ml Q4HP PRN PO HEARTBURN/ INDIGESTION; Start 03/26/17 at 17:30; Stop 04/25/17 at 17:29 Aripiprazole (AbiLIFY) 5 mg QHS PO Last administered on 03/26/17 21:39; Start 03/26/17 at 21:00; Stop 03/27/17 at 08:55; Status DC Aripiprazole (Abilify Maintena) 400 mg Q30D IM ; Start 04/14/17 at 09:00; Stop 05/14/17 at 08:59 Chlorhexidine Gluconate (Peridex Oral Rinse) 15 ml TID MT Last administered on 04/10/17 07:59; Start 03/26/17 at 21:00; Stop 04/25/17 at 20:59 Fluoxetine HCl (PROzac) 20 mg DAILY PO Last administered on 04/10/17 07:58; Start 03/27/17 at 09:00; Stop 04/26/17 at 08:59 Home Med (Med Rec Complete!) ASDIRECTED XX ; Start 03/26/17 at 18:30; Stop at 18:30; Status DC Hydroxyzine HCl (Atarax) 25 mg Q8HP PRN PO ANXIETY; Start 03/26/17 at 20:45; Stop 04/25/17 at 20:44 Latanoprost (Xalatan 0.005% Op Soln) 1 drop QHS OU Last administered on 21:07; Start 03/26/17 at 21:00; Stop 04/25/17 at 20:59 Lidocaine (Lidoderm Patch) 1 patch DAILY TD Last administered on 03/31/17 08: 29; Start 03/27/17 at 09:00; Stop 04/26/17 at 08:59 Lorazepam (Ativan) 1 mg Q8HP PRN PO ANXIETY; Start 03/26/17 at 20:45; Stop 04/02 at 20:44; Status Cancel Magnesium Hydroxide (Milk Of Magnesia) 30 ml DAILYPRN PRN PO CONSTIPATION; Start 03/26/17 at 17:30; Stop 04/25/17 at 17:29 Nicotine (Nicorette) 4 mg Q6HP PRN PO NICOTINE WITHDRAWAL Last administered on 04/10/17 07:59; Start 03/30/17 at 20:45; Stop 04/29/17 at 20:44 Non-Formulary Medication ( See Comment Field Below ) REMOVE LIDODERM PATCH DAILY@21 XX Last administered on 03/28/17 21:19; Start 03/27/17 at 21:00; Stop 04/26/17 at 20:59 Nystatin (Mycostatin Powder, Nystop) DAILY TOP Last administered on 03/30/17 22:59; Start 03/30/17 at 09:00; Stop 04/29/17 at 08:59 Perphenazine (Trilafon) 4 mg BID PO Last administered on 04/05/17 20:59; Start 03/27/17 at 09:00; Stop 04/05/17 at 23:59; Status DC Perphenazine (Trilafon) 8 mg QHS PO Last administered on 04/09/17 21:05; Start 04/06/17 at 21:00; Stop 05/06/17 at 20:59 Trazodone HCl (Desyrel) 50 mg QHSP PRN PO INSOMNIA; Start 03/26/17 at 17:30; Stop 04/25/17 at 17:29 Valproic Acid (Depakene) 500 mg QAM PO Last administered on 04/10/17 07:59; Start 03/27/17 at 09:00; Stop 04/26/17 at 08:59 Valproic Acid (Depakene) 750 mg QHS PO Last administered on 04/09/17 21:05; Start 03/26/17 at 21:00; Stop 04/25/17 at 20:59 Allergies Coded Allergies: Mirella (Verified Allergy, Unknown, 02/10/08) Idania Abrams April 10, 2017 10:19
[2017-04-10 18:00] VITALS: BP 129/74
[2017-04-10] MEDS: **NOTE PATIENT COMMENT** MISC XX SCH (21:00)
[2017-04-10] MEDS: LATANOPROST 0.005% OPHTH SOLN 2.5 ML OU SCH (21:13)
[2017-04-10] MEDS: PERPHENAZINE 2 MG TAB PO SCH (21:13)
[2017-04-11 06:36] VITALS: BP 142/92
[2017-04-11] MEDS: NYSTATIN 100,000 UNITS/GM TOPICAL PWD 15 GM TOP SCH (09:00)
[2017-04-11] MEDS: VALPROIC ACID 250 MG CAP PO SCH ×2 (10:02→20:32)
[2017-04-11] MEDS: FLUoxetine 20 MG CAP PO SCH (10:03)
[2017-04-11] MEDS: ACETAMINOPHEN TAB 650MG DOSE (2X325MG) PO PRN (10:07)
[2017-04-11] MEDS: CHLORHEXIDINE GLUCONATE 0.12 % 15ML UDC (PERIDEX ORAL RINSE) MT SCH ×3 (10:08→20:32)
[2017-04-11] MEDS: LIDOCAINE 5% (LIDODERM) PATCH TD SCH (11:47)
[2017-04-11] MEDS: NICOTINE POLACRILEX 2 MG GUM PO PRN ×2 (11:55→18:03)
--- NOTE | 2017-04-11 12:13 | MHIPNPDOC ---
[facility] Progress Note Progress Note DATE OF SERVICE: 04/11/17 HISTORY: Day . VITAL SIGNS: See below. NEW TEST RESULTS: none CURRENT MEDICATIONS: See below. MENTAL STATUS EXAMINATION: Patient is a 42-year old male, who is dressed in street closed, appears disshelved and unshaven, cooperative. Speech: Is spontaneous, overproductive Language skills are good Thought processes including: paranoia, suspicions Thought content: weight gain, vegan diet. Abstract reasoning, and computation: fair. Description of associations: fair Description of abnormal or psychotic thoughts: states will become suicidal and/ or go off his medication if he reaches 250 lbs. Judgment: poor Insight: poor Orientation: well oriented in all spheres. Recent and remote memory:good. Attention span and concentration: good Fund of knowledge: average Mood: euthymic. Affect: constricted. DIAGNOSES: 1. Paranoid Schizophrenia, chronic 2. Nicotine dependence 3. Alcohol abuse in remission 4. HTN 5. hyperlipidemia 6. Glaucoma 7. Joint pain, chronic 8. Poor dentition 9. h/o Pulmonary embolis in May 2016 ASSESSMENT:Pt reports 14 lb weight gain since admission. Is concerned that the hospital is not able to provide a variety of choices for his vegan diet. He eats a lot of rice 3 x a day. He is used to riding a bicycle around town and has not been able to get that exercise while inpatient. A dietary consult was placed. Dietary declined to meet with pt as requested and instead said they would provide a vegetarian diet for him. Brandt was encouraged to continue the diet of his choice and to not make any decisions about quitting meds until he has been back to his usual routine for several weeks. His discharge is planned for 04/16 so he will be leaving shortly. Brandt also shared with staff that he is bothered by the presence of a female pt recently admitted that he had a relationship with years ago. He feels guilty as the person was "under age" and this is bothering him. He is encouraged to talk about his feelings but also to keep focused on today and the here and now, not what happened years ago. Pt denies suicide ideation or plan. Brandt is also c/o daytime fatigue. C/o constipation but is having BM's daily. Abilify Maintena may cause weight gain. Pt attended and participated in Treatment team meeting. MANAGEMENT PLAN: continue meds, start vegetarian diet, encourage participation in therapeutic milieu. Will lower hs perphenazine to 6 mg to reduce daytime fatigue. TIME SPENT: 30 minutes. Vital Signs Vital Signs Date Time Temp Pulse Resp B/P (MAP) Pulse Ox O2 Delivery O2 Flow Rate FiO2 04/11/17 06:36 96.8 96 18 142/92 (109) 04/10/17 18:00 Room Air Current Medications Current Medications Acetaminophen (Tylenol Tab) 650 mg Q6HP PRN PO HEADACHE or DISCOMFORT Last administered on 04/11/17 10:07; Start 03/26/17 at 17:30; Stop 04/25/17 at 17:29 Al Hydrox/Mg Hydrox/Simethicone (Mylanta) 30 ml Q4HP PRN PO HEARTBURN/ INDIGESTION; Start 03/26/17 at 17:30; Stop 04/25/17 at 17:29 Aripiprazole (AbiLIFY) 5 mg QHS PO Last administered on 03/26/17 21:39; Start 03/26/17 at 21:00; Stop 03/27/17 at 08:55; Status DC Aripiprazole (Abilify Maintena) 400 mg Q30D IM ; Start 04/14/17 at 09:00; Stop 05/14/17 at 08:59 Chlorhexidine Gluconate (Peridex Oral Rinse) 15 ml TID MT Last administered on 04/11/17 10:08; Start 03/26/17 at 21:00; Stop 04/25/17 at 20:59 Fluoxetine HCl (PROzac) 20 mg DAILY PO Last administered on 04/11/17 10:03; Start 03/27/17 at 09:00; Stop 04/26/17 at 08:59 Home Med (Med Rec Complete!) ASDIRECTED XX ; Start 03/26/17 at 18:30; Stop at 18:30; Status DC Hydroxyzine HCl (Atarax) 25 mg Q8HP PRN PO ANXIETY; Start 03/26/17 at 20:45; Stop 04/25/17 at 20:44 Latanoprost (Xalatan 0.005% Op Soln) 1 drop QHS OU Last administered on 21:13; Start 03/26/17 at 21:00; Stop 04/25/17 at 20:59 Lidocaine (Lidoderm Patch) 1 patch DAILY TD Last administered on 04/11/17 11: 47; Start 03/27/17 at 09:00; Stop 04/26/17 at 08:59 Lorazepam (Ativan) 1 mg Q8HP PRN PO ANXIETY; Start 03/26/17 at 20:45; Stop 04/02 at 20:44; Status Cancel Magnesium Hydroxide (Milk Of Magnesia) 30 ml DAILYPRN PRN PO CONSTIPATION; Start 03/26/17 at 17:30; Stop 04/25/17 at 17:29 Nicotine (Nicorette) 4 mg Q6HP PRN PO NICOTINE WITHDRAWAL Last administered on 04/11/17 11:55; Start 03/30/17 at 20:45; Stop 04/29/17 at 20:44 Non-Formulary Medication ( See Comment Field Below ) REMOVE LIDODERM PATCH DAILY@21 XX Last administered on 03/28/17 21:19; Start 03/27/17 at 21:00; Stop 04/26/17 at 20:59 Nystatin (Mycostatin Powder, Nystop) DAILY TOP Last administered on 03/30/17 22:59; Start 03/30/17 at 09:00; Stop 04/29/17 at 08:59 Perphenazine (Trilafon) 4 mg BID PO Last administered on 04/05/17 20:59; Start 03/27/17 at 09:00; Stop 04/05/17 at 23:59; Status DC Perphenazine (Trilafon) 6 mg QHS PO ; Start 04/11/17 at 21:00; Stop 05/11/17 at 20:59 Perphenazine (Trilafon) 8 mg QHS PO Last administered on 04/10/17 21:13; Start 04/06/17 at 21:00; Stop 04/11/17 at 09:54; Status DC Trazodone HCl (Desyrel) 50 mg QHSP PRN PO INSOMNIA; Start 03/26/17 at 17:30; Stop 04/25/17 at 17:29 Valproic Acid (Depakene) 500 mg QAM PO Last administered on 04/11/17 10:02; Start 03/27/17 at 09:00; Stop 04/26/17 at 08:59 Valproic Acid (Depakene) 750 mg QHS PO Last administered on 04/10/17t 21:13; Start 03/26/17 at 21:00; Stop 04/25/17 at 20:59 Allergies Coded Allergies: Mirella (Verified Allergy, Unknown, 02/10/08) Idania Abrams April 11, 2017 12:13
[2017-04-11 18:00] VITALS: BP 135/74
[2017-04-11] MEDS: PERPHENAZINE 2 MG TAB PO SCH (20:32)
[2017-04-11] MEDS: **NOTE PATIENT COMMENT** MISC XX SCH (20:33)
[2017-04-11] MEDS: LATANOPROST 0.005% OPHTH SOLN 2.5 ML OU SCH (21:00)
[2017-04-12] MEDS: NICOTINE POLACRILEX 2 MG GUM PO PRN ×4 (03:03→21:31)
[2017-04-12 06:50] VITALS: BP 128/67
[2017-04-12] MEDS: NYSTATIN 100,000 UNITS/GM TOPICAL PWD 15 GM TOP SCH (09:00)
[2017-04-12] MEDS: LIDOCAINE 5% (LIDODERM) PATCH TD SCH (09:00)
[2017-04-12] MEDS: VALPROIC ACID 250 MG CAP PO SCH ×2 (09:17→21:00)
[2017-04-12] MEDS: FLUoxetine 20 MG CAP PO SCH (09:17)
[2017-04-12] MEDS: CHLORHEXIDINE GLUCONATE 0.12 % 15ML UDC (PERIDEX ORAL RINSE) MT SCH ×3 (09:18→22:32)
--- NOTE | 2017-04-12 10:40 | MHIPNPDOC ---
[facility] Progress Note Progress Note DATE OF SERVICE: 04/12/17 HISTORY: day VITAL SIGNS: See below. NEW TEST RESULTS: none CURRENT MEDICATIONS: See below. MENTAL STATUS EXAMINATION: Patient is a 42-year old male, who is wearing street clothes, long hair-dis- shelved, good eye contact, cooperative. Speech: Is spontaneous, he repeats the last word of the person who is talking to him. Language skills are intact Thought processes including: paranoia, suspicion, delusions Thought content: new [facility] housing Abstract reasoning, and computation: good. Description of associations:fair. Description of abnormal or psychotic thoughts: auditory hallucinations throughout the day, denies suicide today but threatens if he gains weight on abilify. Threatens to go off meds again even with AOT, if he gains weight up to 250 lbs. Judgment: limited. Insight: poor Orientation: oriented in all spheres. Recent and remote memory: intact Attention span and concentration: easily distracted. Fund of knowledge: average Mood: euthymic Affect: congruent but anxious DIAGNOSES: 1. Paranoid schizophrenia, chronic 2. Nicotine dependence ASSESSMENT:Pt is visible on the unit. Keeps to himself. Eating at all meals, dietary will provide a vegetarian diet for him. he states he throws some of it out. Pt perseverating on discharge. MANAGEMENT PLAN: pt expects discharge to [facility] unit in [place]. Pt is very demanding as to his expectations. Insists he can return to the hospital anytime he likes if things aer going his way. He knows he can c/o suicide and get admitted. He has said he will not put up with certain things in his new living environment. Very rigid and inflexible. Little regard for the AOT order. Threatens to stop meds due to weight gain saying "my weight means everything to me. I don't want to be fat". Brandt seems to want to have a reason to remain in the hospital. He is very paranoid especially if with new staff. Order for Abilify Maintena injection in place and scheduled for 04/14 at 0900. Staff advises med is on the unit. Last night was his first dose of the lower perphenazine. Lowered after he c/o morning drowsiness. pt feels less drowsiness today. TIME SPENT: 15 minutes. Vital Signs Vital Signs Date Time Temp Pulse Resp B/P (MAP) Pulse Ox O2 Delivery O2 Flow Rate FiO2 04/12/17 06:50 97.9 85 16 128/67 (87) 04/10/17 18:00 Room Air Current Medications Current Medications Acetaminophen (Tylenol Tab) 650 mg Q6HP PRN PO HEADACHE or DISCOMFORT Last administered on 04/11/17 10:07; Start 03/26/17 at 17:30; Stop 04/25/17 at 17:29 Al Hydrox/Mg Hydrox/Simethicone (Mylanta) 30 ml Q4HP PRN PO HEARTBURN/ INDIGESTION; Start 03/26/17 at 17:30; Stop 04/25/17 at 17:29 Aripiprazole (AbiLIFY) 5 mg QHS PO Last administered on 03/26/17 21:39; Start 03/26/17 at 21:00; Stop 03/27/17 at 08:55; Status DC Aripiprazole (Abilify Maintena) 400 mg Q30D IM ; Start 04/14/17 at 09:00; Stop 05/14/17 at 08:59 Chlorhexidine Gluconate (Peridex Oral Rinse) 15 ml TID MT Last administered on 04/12/17 09:18; Start 03/26/17 at 21:00; Stop 04/25/17 at 20:59 Fluoxetine HCl (PROzac) 20 mg DAILY PO Last administered on 04/12/17 09:17; Start 03/27/17 at 09:00; Stop 04/26/17 at 08:59 Home Med (Med Rec Complete!) ASDIRECTED XX ; Start 03/26/17 at 18:30; Stop at 18:30; Status DC Hydroxyzine HCl (Atarax) 25 mg Q8HP PRN PO ANXIETY; Start 03/26/17 at 20:45; Stop 04/25/17 at 20:44 Latanoprost (Xalatan 0.005% Op Soln) 1 drop QHS OU Last administered on 21:13; Start 03/26/17 at 21:00; Stop 04/25/17 at 20:59 Lidocaine (Lidoderm Patch) 1 patch DAILY TD Last administered on 04/11/17 11: 47; Start 03/27/17 at 09:00; Stop 04/26/17 at 08:59 Lorazepam (Ativan) 1 mg Q8HP PRN PO ANXIETY; Start 03/26/17 at 20:45; Stop 04/02 at 20:44; Status Cancel Magnesium Hydroxide (Milk Of Magnesia) 30 ml DAILYPRN PRN PO CONSTIPATION; Start 03/26/17 at 17:30; Stop 04/25/17 at 17:29 Nicotine (Nicorette) 4 mg Q6HP PRN PO NICOTINE WITHDRAWAL Last administered on 04/12/17 09:19; Start 03/30/17 at 20:45; Stop 04/29/17 at 20:44 Non-Formulary Medication ( See Comment Field Below ) REMOVE LIDODERM PATCH DAILY@21 XX Last administered on 03/28/17 21:19; Start 03/27/17 at 21:00; Stop 04/26/17 at 20:59 Nystatin (Mycostatin Powder, Nystop) DAILY TOP Last administered on 03/30/17 22:59; Start 03/30/17 at 09:00; Stop 04/29/17 at 08:59 Perphenazine (Trilafon) 4 mg BID PO Last administered on 04/05/17 20:59; Start 03/27/17 at 09:00; Stop 04/05/17 at 23:59; Status DC Perphenazine (Trilafon) 6 mg QHS PO Last administered on 04/11/17 20:32; Start 04/11/17 at 21:00; Stop 05/11/17 at 20:59 Perphenazine (Trilafon) 8 mg QHS PO Last administered on 04/10/17 21:13; Start 04/06/17 at 21:00; Stop 04/11/17 at 09:54; Status DC Trazodone HCl (Desyrel) 50 mg QHSP PRN PO INSOMNIA; Start 03/26/17 at 17:30; Stop 04/25/17 at 17:29 Valproic Acid (Depakene) 500 mg QAM PO Last administered on 04/12/17 09:17; Start 03/27/17 at 09:00; Stop 04/26/17 at 08:59 Valproic Acid (Depakene) 750 mg QHS PO Last administered on 04/11/17t 20:32; Start 03/26/17 at 21:00; Stop 04/25/17 at 20:59 Allergies Coded Allergies: Mirella (Verified Allergy, Unknown, 02/10/08) Idania Abrams April 12, 2017 10:40
[2017-04-12 18:00] VITALS: BP 119/57
[2017-04-12] MEDS: LATANOPROST 0.005% OPHTH SOLN 2.5 ML OU SCH (21:00)
[2017-04-12] MEDS: **NOTE PATIENT COMMENT** MISC XX SCH (21:00)
[2017-04-12] MEDS: PERPHENAZINE 2 MG TAB PO SCH (22:32)
[2017-04-13] MEDS: MOM 30ML SUSPENSION UDC PO PRN (03:05)
[2017-04-13] MEDS: NICOTINE POLACRILEX 2 MG GUM PO PRN ×4 (04:44→22:45)
[2017-04-13 06:25] VITALS: BP 134/85
[2017-04-13] MEDS: NYSTATIN 100,000 UNITS/GM TOPICAL PWD 15 GM TOP SCH (08:55)
[2017-04-13] MEDS: FLUoxetine 20 MG CAP PO SCH (08:55)
[2017-04-13] MEDS: VALPROIC ACID 250 MG CAP PO SCH ×2 (08:55→20:04)
[2017-04-13] MEDS: CHLORHEXIDINE GLUCONATE 0.12 % 15ML UDC (PERIDEX ORAL RINSE) MT SCH ×3 (08:55→20:02)
[2017-04-13] MEDS: LIDOCAINE 5% (LIDODERM) PATCH TD SCH (08:55)
[2017-04-13] MEDS: ACETAMINOPHEN TAB 650MG DOSE (2X325MG) PO PRN (17:17)
[2017-04-13 18:00] VITALS: BP 126/77
[2017-04-13] MEDS: PERPHENAZINE 2 MG TAB PO SCH (20:02)
[2017-04-13] MEDS: LATANOPROST 0.005% OPHTH SOLN 2.5 ML OU SCH (20:04)
[2017-04-13] MEDS: **NOTE PATIENT COMMENT** MISC XX SCH (20:04)
[2017-04-14 06:00] VITALS: BP 135/75
[2017-04-14] MEDS: CHLORHEXIDINE GLUCONATE 0.12 % 15ML UDC (PERIDEX ORAL RINSE) MT SCH ×3 (08:38→22:05)
[2017-04-14] MEDS: FLUoxetine 20 MG CAP PO SCH (08:38)
[2017-04-14] MEDS: NICOTINE POLACRILEX 2 MG GUM PO PRN ×2 (08:39→15:52)
[2017-04-14] MEDS: LIDOCAINE 5% (LIDODERM) PATCH TD SCH (08:39)
[2017-04-14] MEDS: VALPROIC ACID 250 MG CAP PO SCH ×2 (08:40→21:00)
[2017-04-14] MEDS: NYSTATIN 100,000 UNITS/GM TOPICAL PWD 15 GM TOP SCH (08:40)
[2017-04-14] MEDS ORDERED: ARIPiprazole MONOHYDRATE 400 MG INJ (ABILIFY)(J0401) IM SCH (09:00)
[2017-04-14] MEDS: ACETAMINOPHEN TAB 650MG DOSE (2X325MG) PO PRN (13:30)
[2017-04-14 18:00] VITALS: BP 131/79
[2017-04-14] MEDS: LATANOPROST 0.005% OPHTH SOLN 2.5 ML OU SCH (21:00)
[2017-04-14] MEDS: **NOTE PATIENT COMMENT** MISC XX SCH (21:00)
[2017-04-14] MEDS: PERPHENAZINE 2 MG TAB PO SCH (22:05)
[2017-04-15] MEDS: NICOTINE POLACRILEX 2 MG GUM PO PRN ×4 (00:14→21:18)
[2017-04-15 06:00] VITALS: BP 104/57
[2017-04-15] MEDS: FLUoxetine 20 MG CAP PO SCH (08:28)
[2017-04-15] MEDS: VALPROIC ACID 250 MG CAP PO SCH ×2 (08:28→20:09)
[2017-04-15] MEDS: CHLORHEXIDINE GLUCONATE 0.12 % 15ML UDC (PERIDEX ORAL RINSE) MT SCH ×3 (08:28→20:09)
[2017-04-15] MEDS: LIDOCAINE 5% (LIDODERM) PATCH TD SCH (08:29)
[2017-04-15] MEDS: NYSTATIN 100,000 UNITS/GM TOPICAL PWD 15 GM TOP SCH (08:30)
[2017-04-15] MEDS: ACETAMINOPHEN TAB 650MG DOSE (2X325MG) PO PRN (14:16)
[2017-04-15 18:00] VITALS: BP 118/56
[2017-04-15] MEDS: PERPHENAZINE 2 MG TAB PO SCH (20:09)
[2017-04-15] MEDS: MOM 30ML SUSPENSION UDC PO PRN (20:09)
[2017-04-15] MEDS: LATANOPROST 0.005% OPHTH SOLN 2.5 ML OU SCH (20:10)
[2017-04-15] MEDS: **NOTE PATIENT COMMENT** MISC XX SCH (20:10)
[2017-04-16 06:13] VITALS: BP 153/86
[2017-04-16] MEDS: NICOTINE POLACRILEX 2 MG GUM PO PRN ×3 (07:23→19:45)
[2017-04-16] MEDS: NYSTATIN 100,000 UNITS/GM TOPICAL PWD 15 GM TOP SCH (09:00)
[2017-04-16] MEDS: VALPROIC ACID 250 MG CAP PO SCH ×2 (09:00→19:43)
[2017-04-16] MEDS: LIDOCAINE 5% (LIDODERM) PATCH TD SCH (09:00)
[2017-04-16] MEDS: FLUoxetine 20 MG CAP PO SCH (09:39)
[2017-04-16] MEDS: CHLORHEXIDINE GLUCONATE 0.12 % 15ML UDC (PERIDEX ORAL RINSE) MT SCH ×3 (09:39→19:44)
[2017-04-16] MEDS: MOM 30ML SUSPENSION UDC PO PRN (15:31)
[2017-04-16 18:11] VITALS: BP 133/74
[2017-04-16] MEDS: **NOTE PATIENT COMMENT** MISC XX SCH (19:43)
[2017-04-16] MEDS: LATANOPROST 0.005% OPHTH SOLN 2.5 ML OU SCH (19:43)
[2017-04-16] MEDS: PERPHENAZINE 2 MG TAB PO SCH (19:45)
--- NOTE | 2017-04-16 21:57 | MHIPNPDOC ---
[facility] Progress Note Progress Note DATE OF SERVICE: 04/16/17 HISTORY: Evaluated 42 year old male with history of schizophrenia who was recently readmitted to the [facility] after he was discharged a couple of days before but came back complaining of the staff at [facility]. On MSE, he was alert, oriented x 3, cooperative with interview, guarded, with circumstantial speech, irrational/disorganized thought process positive for paranoid, suspicious delusions about he staff at [facility]. ( thought content). His memory, recent and remote are fair; his attention and concentration are fair but his insight and judgement are very poor. His impulse control is fair. DIAGNOSES: 1. Paranoid schizophrenia. ASSESSMENT:Will continue with current medications.He is still unstable, has paranoid ideation and for that reason, because he needs a higher level of care, he will be transferred to [facility] as soon as a bed becomes available. MANAGEMENT PLAN: As above TIME SPENT: 25 minutes. Vital Signs Vital Signs Date Time Temp Pulse Resp B/P (MAP) Pulse Ox O2 Delivery O2 Flow Rate FiO2 04/16/17 18:11 98.3 82 18 133/74 (93) 04/10/17 18:00 Room Air Laboratory Data 24H Labs Laboratory Tests 2 04/15/17 21:55: Bedside Glucose (Misc Panel) 152H Current Medications Current Medications Acetaminophen (Tylenol Tab) 650 mg Q6HP PRN PO HEADACHE or DISCOMFORT Last administered on 04/15/17 14:16; Start 03/26/17 at 17:30; Stop 04/25/17 at 17:29 Al Hydrox/Mg Hydrox/Simethicone (Mylanta) 30 ml Q4HP PRN PO HEARTBURN/ INDIGESTION Last administered on 04/12/17 18:31; Start 03/26/17 at 17:30; Stop 04/25/17 at 17:29 Aripiprazole (AbiLIFY) 5 mg QHS PO Last administered on 03/26/17 21:39; Start 03/26/17 at 21:00; Stop 03/27/17 at 08:55; Status DC Aripiprazole (Abilify Maintena) 400 mg Q30D IM Last administered on 04/14/17 08:40; Start 04/14/17 at 09:00; Stop 05/14/17 at 08:59 Chlorhexidine Gluconate (Peridex Oral Rinse) 15 ml TID MT Last administered on 04/16/17 19:44; Start 03/26/17 at 21:00; Stop 04/25/17 at 20:59 Fluoxetine HCl (PROzac) 20 mg DAILY PO Last administered on 04/16/17 09:39; Start 03/27/17 at 09:00; Stop 04/26/17 at 08:59 Home Med (Med Rec Complete!) ASDIRECTED XX ; Start 03/26/17 at 18:30; Stop at 18:30; Status DC Hydroxyzine HCl (Atarax) 25 mg Q8HP PRN PO ANXIETY; Start 03/26/17 at 20:45; Stop 04/25/17 at 20:44 Latanoprost (Xalatan 0.005% Op Soln) 1 drop QHS OU Last administered on 21:13; Start 03/26/17 at 21:00; Stop 04/25/17 at 20:59 Lidocaine (Lidoderm Patch) 1 patch DAILY TD Last administered on 04/11/17 11: 47; Start 03/27/17 at 09:00; Stop 04/26/17 at 08:59 Lorazepam (Ativan) 1 mg Q8HP PRN PO ANXIETY; Start 03/26/17 at 20:45; Stop 04/02 at 20:44; Status Cancel Magnesium Hydroxide (Milk Of Magnesia) 30 ml DAILYPRN PRN PO CONSTIPATION Last administered on 04/16/17 15:31; Start 03/26/17 at 17:30; Stop 04/25/17 at 17:29 Nicotine (Nicorette) 4 mg Q6HP PRN PO NICOTINE WITHDRAWAL Last administered on 04/16/17 19:45; Start 03/30/17 at 20:45; Stop 04/29/17 at 20:44 Non-Formulary Medication ( See Comment Field Below ) REMOVE LIDODERM PATCH DAILY@21 XX Last administered on 03/28/17 21:19; Start 03/27/17 at 21:00; Stop 04/26/17 at 20:59 Nystatin (Mycostatin Powder, Nystop) DAILY TOP Last administered on 03/30/17 22:59; Start 03/30/17 at 09:00; Stop 04/29/17 at 08:59 Perphenazine (Trilafon) 4 mg BID PO Last administered on 04/05/17 20:59; Start 03/27/17 at 09:00; Stop 04/05/17 at 23:59; Status DC Perphenazine (Trilafon) 6 mg QHS PO Last administered on 04/16/17 19:45; Start 04/11/17 at 21:00; Stop 05/11/17 at 20:59 Perphenazine (Trilafon) 8 mg QHS PO Last administered on 04/10/17 21:13; Start 04/06/17 at 21:00; Stop 04/11/17 at 09:54; Status DC Trazodone HCl (Desyrel) 50 mg QHSP PRN PO INSOMNIA; Start 03/26/17 at 17:30; Stop 04/25/17 at 17:29 Valproic Acid (Depakene) 500 mg QAM PO Last administered on 04/12/17 09:17; Start 03/27/17 at 09:00; Stop 04/26/17 at 08:59 Valproic Acid (Depakene) 750 mg QHS PO Last administered on 04/11/17 20:32; Start 03/26/17 at 21:00; Stop 04/25/17 at 20:59 Allergies Coded Allergies: Mirella (Verified Allergy, Unknown, 02/10/08) TYRONE MELGOZA MD April 16, 2017 21:57
[2017-04-17] MEDS: NICOTINE POLACRILEX 2 MG GUM PO PRN ×3 (06:31→19:25)
[2017-04-17 06:33] VITALS: BP 111/77
[2017-04-17] MEDS: CHLORHEXIDINE GLUCONATE 0.12 % 15ML UDC (PERIDEX ORAL RINSE) MT SCH ×3 (08:29→20:44)
[2017-04-17] MEDS: FLUoxetine 20 MG CAP PO SCH (08:29)
[2017-04-17] MEDS: NYSTATIN 100,000 UNITS/GM TOPICAL PWD 15 GM TOP SCH (08:30)
[2017-04-17] MEDS: VALPROIC ACID 250 MG CAP PO SCH (08:30)
[2017-04-17] MEDS: LIDOCAINE 5% (LIDODERM) PATCH TD SCH (08:30)
[2017-04-17] MEDS: MOM 30ML SUSPENSION UDC PO PRN (17:11)
--- NOTE | 2017-04-17 17:47 | MHIPNPDOC ---
[facility] Progress Note Progress Note DATE OF SERVICE: 04/17/17 HISTORY: day , pt awaiting bed at [facility] VITAL SIGNS: See below. NEW TEST RESULTS: na CURRENT MEDICATIONS: See below. MENTAL STATUS EXAMINATION: Patient is a 42-year old male, who is wearing street clothes, dis-shelved, hair is messy, unshaven, good eye contact. Speech: Is spontaneous Language skills are good Thought processes including: suspicious, paranoid, disorganized Thought content: AOT, meds Abstract reasoning, and computation: irrelevant Description of associations: loose Description of abnormal or psychotic thoughts: threatens SI when things don't go his way, always has auditory hallucinations. Judgment: poor Insight: poor Orientation: oriented x 3 Recent and remote memory: good Attention span and concentration: poor Fund of knowledge: impaired Mood: irritable Affect: congruent DIAGNOSES: 1. paranoid schizophrenia, chronic 2. borderline personality disorder 3. nicotine dependence. ASSESSMENT:pt asked to speak with press writer, stated he has questions about his AOT. Stated he does not need a mood stabilizer and has been refusing his depakene. Pt is impulsive. Micromanages his medications. Appears to want to remain in the hospital or go to [facility] rather than [facility]. He appears to be sabotaging his placement with [facility] by refusing meds. He states he will not take lithium again. Pt is argumentative about diagnosis and rationale for meds. He became very impatient and ordered press writer out of his room saying "I will see you in court". MANAGEMENT PLAN: will dc depakene however pt remains verbally overproductive, irrational and impulsive. Will try to find a solution by working with him if he will allow this. TIME SPENT: 15 minutes. Vital Signs Vital Signs Date Time Temp Pulse Resp B/P (MAP) Pulse Ox O2 Delivery O2 Flow Rate FiO2 04/17/17 06:33 98.4 86 16 111/77 (88) Current Medications Current Medications Acetaminophen (Tylenol Tab) 650 mg Q6HP PRN PO HEADACHE or DISCOMFORT Last administered on 04/15/17 14:16; Start 03/26/17 at 17:30; Stop 04/25/17 at 17:29 Al Hydrox/Mg Hydrox/Simethicone (Mylanta) 30 ml Q4HP PRN PO HEARTBURN/ INDIGESTION Last administered on 04/12/17 18:31; Start 03/26/17 at 17:30; Stop 04/25/17 at 17:29 Aripiprazole (AbiLIFY) 5 mg QHS PO Last administered on 03/26/17 21:39; Start 03/26/17 at 21:00; Stop 03/27/17 at 08:55; Status DC Aripiprazole (Abilify Maintena) 400 mg Q30D IM Last administered on 04/14/17 08:40; Start 04/14/17 at 09:00; Stop 05/14/17 at 08:59 Chlorhexidine Gluconate (Peridex Oral Rinse) 15 ml TID MT Last administered on 04/17/17 16:06; Start 03/26/17 at 21:00; Stop 04/25/17 at 20:59 Fluoxetine HCl (PROzac) 20 mg DAILY PO Last administered on 04/17/17 08:29; Start 03/27/17 at 09:00; Stop 04/26/17 at 08:59 Home Med (Med Rec Complete!) ASDIRECTED XX ; Start 03/26/17 at 18:30; Stop at 18:30; Status DC Hydroxyzine HCl (Atarax) 25 mg Q8HP PRN PO ANXIETY; Start 03/26/17 at 20:45; Stop 04/25/17 at 20:44 Latanoprost (Xalatan 0.005% Op Soln) 1 drop QHS OU Last administered on 21:13; Start 03/26/17 at 21:00; Stop 04/25/17 at 20:59 Lidocaine (Lidoderm Patch) 1 patch DAILY TD Last administered on 04/11/17 11: 47; Start 03/27/17 at 09:00; Stop 04/26/17 at 08:59 Lorazepam (Ativan) 1 mg Q8HP PRN PO ANXIETY; Start 03/26/17 at 20:45; Stop 04/02 at 20:44; Status Cancel Magnesium Hydroxide (Milk Of Magnesia) 30 ml DAILYPRN PRN PO CONSTIPATION Last administered on 04/17/17 17:11; Start 03/26/17 at 17:30; Stop 04/25/17 at 17:29 Nicotine (Nicorette) 4 mg Q6HP PRN PO NICOTINE WITHDRAWAL Last administered on 04/17/17 13:01; Start 03/30/17 at 20:45; Stop 04/29/17 at 20:44 Non-Formulary Medication ( See Comment Field Below ) REMOVE LIDODERM PATCH DAILY@21 XX Last administered on 03/28/17 21:19; Start 03/27/17 at 21:00; Stop 04/26/17 at 20:59 Nystatin (Mycostatin Powder, Nystop) DAILY TOP Last administered on 03/30/17 22:59; Start 03/30/17 at 09:00; Stop 04/29/17 at 08:59 Perphenazine (Trilafon) 4 mg BID PO Last administered on 04/05/17 20:59; Start 03/27/17 at 09:00; Stop 04/05/17 at 23:59; Status DC Perphenazine (Trilafon) 6 mg QHS PO Last administered on 04/16/17 19:45; Start 04/11/17 at 21:00; Stop 05/11/17 at 20:59 Perphenazine (Trilafon) 8 mg QHS PO Last administered on 04/10/17 21:13; Start 04/06/17 at 21:00; Stop 04/11/17 at 09:54; Status DC Trazodone HCl (Desyrel) 50 mg QHSP PRN PO INSOMNIA; Start 03/26/17 at 17:30; Stop 04/25/17 at 17:29 Valproic Acid (Depakene) 500 mg QAM PO Last administered on 04/12/17 09:17; Start 03/27/17 at 09:00; Stop 04/26/17 at 08:59 Valproic Acid (Depakene) 750 mg QHS PO Last administered on 04/11/17 20:32; Start 03/26/17 at 21:00; Stop 04/25/17 at 20:59 Allergies Coded Allergies: Mirella (Verified Allergy, Unknown, 02/10/08) Idania Abrams April 17, 2017 17:47
[2017-04-17 18:23] VITALS: BP_SYST 142; BP_SYST 146; BP_DIAS 76; BP_DIAS 83
[2017-04-17] MEDS: PERPHENAZINE 2 MG TAB PO SCH (20:43)
[2017-04-17] MEDS: LATANOPROST 0.005% OPHTH SOLN 2.5 ML OU SCH (20:44)
[2017-04-17] MEDS: **NOTE PATIENT COMMENT** MISC XX SCH (20:44)
[2017-04-18] MEDS: NICOTINE POLACRILEX 2 MG GUM PO PRN ×3 (03:59→23:46)
[2017-04-18 06:10] VITALS: BP 110/69
[2017-04-18] MEDS: LIDOCAINE 5% (LIDODERM) PATCH TD SCH (09:00)
[2017-04-18] MEDS: NYSTATIN 100,000 UNITS/GM TOPICAL PWD 15 GM TOP SCH (09:00)
[2017-04-18] MEDS ORDERED: **PENDING PPD ENTRY XX SCH (09:00)
[2017-04-18] MEDS: FLUoxetine 20 MG CAP PO SCH (09:34)
[2017-04-18] MEDS: CHLORHEXIDINE GLUCONATE 0.12 % 15ML UDC (PERIDEX ORAL RINSE) MT SCH ×3 (09:34→21:17)
[2017-04-18] MEDS ORDERED: TUBERCULIN PPD 5 UNITS/0.1 ML ID SCH (10:00)
[2017-04-18] MEDS: ACETAMINOPHEN TAB 650MG DOSE (2X325MG) PO PRN ×2 (12:52→19:17)
--- NOTE | 2017-04-18 15:41 | MHIPNPDOC ---
[facility] Progress Note Progress Note DATE OF SERVICE: 04/18/17 HISTORY: day 23. VITAL SIGNS: See below. NEW TEST RESULTS: pt refused lithium level CURRENT MEDICATIONS: See below. MENTAL STATUS EXAMINATION: Patient is a 42-year old male, who is dis-sheveled, anxious, disorganized in his thoughts and tangential. Dressed in street clothes. Speech: Is rambling, loose, spontaneous Language skills are intact Thought processes including: disorganized, circumstantial Thought content: self-absorbed Abstract reasoning, and computation: concrete Description of associations: loose Description of abnormal or psychotic thoughts: daily auditory hallucinations, will become suicidal when he does not get what he wants, thinking is not reality based some of the time. Judgment: limited Insight: very limited Orientation: well oriented Recent and remote memory: impaired Attention span and concentration: poor Fund of knowledge: impaired Mood: irritable. Affect: congruent DIAGNOSES: 1. Paranoid schizophrenia 2. nicotine dependence 3. borderline personality disorder ASSESSMENT:Pt has been argumentative in groups, yelling at others, refusing labs. Pt was presented with the idea of going to [facility] to which he was originally agreeable and now says he does not need and "it would be waste of tax payers money". Pt is not responding well to meds. He seems more agitated since getting his Maintena injection. He started refusing his depakene so this was discontinued. Pt is claiming he is overmedicated however perphenazine was lowered last week and depakene discontinued this week. MANAGEMENT PLAN: If pt will allow insurance writer to discuss meds with him will review other options for treatment such as [facility] TIME SPENT: 30 minutes. Vital Signs Vital Signs Date Time Temp Pulse Resp B/P (MAP) Pulse Ox O2 Delivery O2 Flow Rate FiO2 04/18/17 06:10 98.2 80 16 110/69 (83) Room Air Current Medications Current Medications Acetaminophen (Tylenol Tab) 650 mg Q6HP PRN PO HEADACHE or DISCOMFORT Last administered on 04/18/17 12:52; Start 03/26/17 at 17:30; Stop 04/25/17 at 17:29 Al Hydrox/Mg Hydrox/Simethicone (Mylanta) 30 ml Q4HP PRN PO HEARTBURN/ INDIGESTION Last administered on 04/12/17 18:31; Start 03/26/17 at 17:30; Stop 04/25/17 at 17:29 Aripiprazole (AbiLIFY) 5 mg QHS PO Last administered on 03/26/17 21:39; Start 03/26/17 at 21:00; Stop 03/27/17 at 08:55; Status DC Aripiprazole (Abilify Maintena) 400 mg Q30D IM Last administered on 04/14/17 08:40; Start 04/14/17 at 09:00; Stop 05/14/17 at 08:59 Chlorhexidine Gluconate (Peridex Oral Rinse) 15 ml TID MT Last administered on 04/18/17 09:34; Start 03/26/17 at 21:00; Stop 04/25/17 at 20:59 Fluoxetine HCl (PROzac) 20 mg DAILY PO Last administered on 04/18/17 09:34; Start 03/27/17 at 09:00; Stop 04/26/17 at 08:59 Home Med (Med Rec Complete!) ASDIRECTED XX ; Start 03/26/17 at 18:30; Stop at 18:30; Status DC Hydroxyzine HCl (Atarax) 25 mg Q8HP PRN PO ANXIETY; Start 03/26/17 at 20:45; Stop 04/25/17 at 20:44 Latanoprost (Xalatan 0.005% Op Soln) 1 drop QHS OU Last administered on 21:13; Start 03/26/17 at 21:00; Stop 04/25/17 at 20:59 Lidocaine (Lidoderm Patch) 1 patch DAILY TD Last administered on 04/11/17 11: 47; Start 03/27/17 at 09:00; Stop 04/26/17 at 08:59 Lorazepam (Ativan) 1 mg Q8HP PRN PO ANXIETY; Start 03/26/17 at 20:45; Stop 04/02 at 20:44; Status Cancel Magnesium Hydroxide (Milk Of Magnesia) 30 ml DAILYPRN PRN PO CONSTIPATION Last administered on 04/17/17 17:11; Start 03/26/17 at 17:30; Stop 04/25/17 at 17:29 Nicotine (Nicorette) 4 mg Q6HP PRN PO NICOTINE WITHDRAWAL Last administered on 04/18/17 14:06; Start 03/30/17 at 20:45; Stop 04/29/17 at 20:44 Non-Formulary Medication ( See Comment Field Below ) REMOVE LIDODERM PATCH DAILY@21 XX Last administered on 03/28/17 21:19; Start 03/27/17 at 21:00; Stop 04/26/17 at 20:59 Non-Formulary Medication ( See Comment Field Below ) SEE LABEL COMMENTS DAILY XX ; Start 04/18/17 at 09:00; Stop 04/18/17 at 10:21; Status DC Non-Formulary Medication ( See Comment Field Below ) SEE LABEL COMMENTS SECTION 1T@10 XX ; Start 04/20/17 at 10:00; Stop 04/20/17 at 23:59 Non-Formulary Medication ( See Comment Field Below ) offer until accepted. 1T@10 ID ; Start 04/20/17 at 10:00; Stop 05/17/17 at 09:59; Status UNV Nystatin (Mycostatin Powder, Nystop) DAILY TOP Last administered on 03/30/17 22:59; Start 03/30/17 at 09:00; Stop 04/29/17 at 08:59 Perphenazine (Trilafon) 4 mg BID PO Last administered on 04/05/17 20:59; Start 03/27/17 at 09:00; Stop 04/05/17 at 23:59; Status DC Perphenazine (Trilafon) 6 mg QHS PO Last administered on 04/17/17 20:43; Start 04/11/17 at 21:00; Stop 05/11/17 at 20:59 Perphenazine (Trilafon) 8 mg QHS PO Last administered on 04/10/17 21:13; Start 04/06/17 at 21:00; Stop 04/11/17 at 09:54; Status DC Trazodone HCl (Desyrel) 50 mg QHSP PRN PO INSOMNIA; Start 03/26/17 at 17:30; Stop 04/25/17 at 17:29 Tuberculin PPD (Aplisol, Ppd) 5 units 1T@10 ID Last administered on 04/18/17 13 :23; Start 04/18/17 at 10:00; Stop 04/18/17 at 23:59 Valproic Acid (Depakene) 500 mg QAM PO Last administered on 04/12/17 09:17; Start 03/27/17 at 09:00; Stop 04/17/17 at 17:50; Status DC Valproic Acid (Depakene) 750 mg QHS PO Last administered on 04/11/17 20:32; Start 03/26/17 at 21:00; Stop 04/17/17 at 17:50; Status DC Allergies Coded Allergies: Mirella (Verified Allergy, Unknown, 02/10/08) Idania Abrams Apr 18, 2017 15:41
[2017-04-18 18:00] VITALS: BP 134/88
[2017-04-18] MEDS: MOM 30ML SUSPENSION UDC PO PRN (19:15)
[2017-04-18] MEDS: **NOTE PATIENT COMMENT** MISC XX SCH (21:00)
[2017-04-18] MEDS: LATANOPROST 0.005% OPHTH SOLN 2.5 ML OU SCH (21:00)
[2017-04-18] MEDS: PERPHENAZINE 2 MG TAB PO SCH (21:17)
[2017-04-19] MEDS: ACETAMINOPHEN TAB 650MG DOSE (2X325MG) PO PRN ×4 (01:38→21:19)
[2017-04-19 06:00] VITALS: BP 147/87
[2017-04-19 07:50] LABS: ALBUMIN 3.5 GM/DL (3.2-5.2); ALBUMIN/GLOBULIN RATIO 1.13 (1.00-1.93); ALKALINE PHOSPHATASE 87 U/L (45-117); ALT/SGPT 20 U/L (12-78); ANION GAP 6 MEQ/L (8-16); AST/SGOT 12 U/L (15-37); BILIRUBIN,TOTAL 0.4 MG/DL (0.2-1.0); BLOOD UREA NITROGEN 5 MG/DL (7-18); CALCIUM LEVEL 8.3 MG/DL (8.5-10.1); CARBON DIOXIDE LEVEL 29 MEQ/L (21-32); CHLORIDE LEVEL 105 MEQ/L (98-107); CREATININE FOR GFR 0.72 MG/DL (0.70-1.30); GLOMERULAR FILTRATION RATE > 60.0 (>60); GLUCOSE, FASTING 111 MG/DL (70-105); POTASSIUM SERUM 4.3 MEQ/L (3.5-5.1); SODIUM LEVEL 140 MEQ/L (136-145); TOTAL PROTEIN 6.6 GM/DL (6.4-8.2)
[2017-04-19] MEDS: FLUoxetine 20 MG CAP PO SCH (08:10)
[2017-04-19] MEDS: LIDOCAINE 5% (LIDODERM) PATCH TD SCH (08:10)
[2017-04-19] MEDS: NYSTATIN 100,000 UNITS/GM TOPICAL PWD 15 GM TOP SCH (08:10)
[2017-04-19] MEDS: CHLORHEXIDINE GLUCONATE 0.12 % 15ML UDC (PERIDEX ORAL RINSE) MT SCH ×3 (08:10→21:15)
[2017-04-19] MEDS: NICOTINE POLACRILEX 2 MG GUM PO PRN (09:25)
--- NOTE | 2017-04-19 09:36 | IPNPDOC ---
Subjective Date Seen The patient was seen on 04/19/17. Subjective Chief Complaint/HPI The patient is a 42-year-old male admitted with a reason for visit of Schizophrenia. Events since last encounter Requested to evaluate Pt for dental pain. Pt c/o left lower molar discomfort. Radiating to lower jaw and noticed enlarged lymph node. No ST. Eating and drinking. Objective Physical Examination General Exam: Positive: Alert Eye Exam: Positive: PERRLA ENT Exam: Positive: Atraumatic, Tongue Midline, Other ENT (TTP lower molar left with erythema and edema gingival area) Neck Exam: Positive: Supple, Lymphadenopathy (small palpable anterior node left upper anterior chain. no erythema, no TTP) Assessment /Plan Problems (1) Dental infection Status: Acute Problem Text: * Augmentin 875 BID x 10 days. * chlorhexidine wash SS TID. * outpt dental f/u. Plan/VTE VTE Prophylaxis Ordered?: No (ambulatory) VS, I&O, 24H, Fishbone Vital Signs/I&O Vital Signs Date Time Temp Pulse Resp B/P (MAP) Pulse Ox O2 Delivery O2 Flow Rate FiO2 04/19/17 06:00 99.7 100 20 147/87 (107) 04/18/17 06:10 Room Air Laboratory Data 24H LABS Laboratory Tests 2 04/19/17 06:30: Anion Gap 6L, Glomerular Filtration Rate > 60.0, Blood Urea Nitrogen 5L, Creatinine 0.72, Sodium Level 140, Potassium Level 4.3, Chloride Level 105, Carbon Dioxide Level 29, Calcium Level 8.3L, Aspartate Amino Transf (AST/SGOT) 12L, Alanine Aminotransferase (ALT/SGPT) 20, Alkaline Phosphatase 87, Total Bilirubin 0.4, Total Protein 6.6, Albumin 3.5, Albumin/Globulin Ratio 1.13 CBC/BMP Laboratory Tests 04/19/17 06:30 Calcium Level 8.3 L, Aspartate Amino Transf (AST/SGOT) 12 L, Alanine Aminotransferase (ALT/SGPT) 20, Alkaline Phosphatase 87, Total Bilirubin 0.4, Total Protein 6.6, Albumin 3.5 Bri Morris Apr 19, 2017 09:36
[2017-04-19] MEDS: AUGMENTIN 875 MG TAB PO SCH ×2 (11:29→21:15)
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
[2017-04-19 18:00] VITALS: BP 138/82
[2017-04-19] MEDS: **NOTE PATIENT COMMENT** MISC XX SCH (21:00)
[2017-04-19] MEDS: PERPHENAZINE 2 MG TAB PO SCH (21:15)
[2017-04-19] MEDS: LATANOPROST 0.005% OPHTH SOLN 2.5 ML OU SCH (21:15)
[2017-04-20] MEDS: ACETAMINOPHEN TAB 650MG DOSE (2X325MG) PO PRN ×2 (03:21→20:21)
[2017-04-20] MEDS: NICOTINE POLACRILEX 2 MG GUM PO PRN ×2 (05:38→13:51)
[2017-04-20 06:09] VITALS: BP 140/80
[2017-04-20] MEDS: NYSTATIN 100,000 UNITS/GM TOPICAL PWD 15 GM TOP SCH (09:00)
[2017-04-20] MEDS: LIDOCAINE 5% (LIDODERM) PATCH TD SCH (09:00)
[2017-04-20] MEDS: AUGMENTIN 875 MG TAB PO SCH ×2 (09:11→20:20)
[2017-04-20] MEDS: CHLORHEXIDINE GLUCONATE 0.12 % 15ML UDC (PERIDEX ORAL RINSE) MT SCH ×3 (09:11→20:20)
[2017-04-20] MEDS: FLUoxetine 20 MG CAP PO SCH (09:12)
[2017-04-20] MEDS ORDERED: PPD DOCUMENTATION ENTRY MISC XX SCH (10:00)
[2017-04-20] MEDS ORDERED: PPD DOCUMENTATION ENTRY MISC ID SCH (10:00)
[2017-04-20 18:10] VITALS: BP 107/56
[2017-04-20] MEDS: PERPHENAZINE 2 MG TAB PO SCH (20:20)
[2017-04-20] MEDS: **NOTE PATIENT COMMENT** MISC XX SCH (20:21)
[2017-04-20] MEDS: LATANOPROST 0.005% OPHTH SOLN 2.5 ML OU SCH (20:21)
[2017-04-21 06:00] VITALS: BP 120/58
[2017-04-21] MEDS: AUGMENTIN 875 MG TAB PO SCH ×2 (08:40→20:29)
[2017-04-21] MEDS: FLUoxetine 20 MG CAP PO SCH (08:40)
[2017-04-21] MEDS: CHLORHEXIDINE GLUCONATE 0.12 % 15ML UDC (PERIDEX ORAL RINSE) MT SCH ×3 (08:41→20:30)
[2017-04-21] MEDS: LIDOCAINE 5% (LIDODERM) PATCH TD SCH (08:41)
[2017-04-21] MEDS: NYSTATIN 100,000 UNITS/GM TOPICAL PWD 15 GM TOP SCH (08:41)
[2017-04-21] MEDS: ACETAMINOPHEN TAB 650MG DOSE (2X325MG) PO PRN (11:45)
[2017-04-21] MEDS: hydrOXYzine 25 MG TAB PO PRN (15:33)
[2017-04-21 18:00] VITALS: BP 129/69
[2017-04-21] MEDS: PERPHENAZINE 2 MG TAB PO SCH (20:29)
[2017-04-21] MEDS: LATANOPROST 0.005% OPHTH SOLN 2.5 ML OU SCH (20:30)
[2017-04-21] MEDS: **NOTE PATIENT COMMENT** MISC XX SCH (20:31)
[2017-04-22] MEDS: ACETAMINOPHEN TAB 650MG DOSE (2X325MG) PO PRN (06:02)
[2017-04-22 06:41] VITALS: BP 110/72
[2017-04-22] MEDS: NYSTATIN 100,000 UNITS/GM TOPICAL PWD 15 GM TOP SCH (09:00)
[2017-04-22] MEDS: LIDOCAINE 5% (LIDODERM) PATCH TD SCH (09:00)
[2017-04-22] MEDS: FLUoxetine 20 MG CAP PO SCH (09:18)
[2017-04-22] MEDS: CHLORHEXIDINE GLUCONATE 0.12 % 15ML UDC (PERIDEX ORAL RINSE) MT SCH ×3 (09:19→20:35)
[2017-04-22] MEDS: AUGMENTIN 875 MG TAB PO SCH ×2 (09:19→20:35)
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
[2017-04-22 18:00] VITALS: BP 146/80
[2017-04-22] MEDS: hydrOXYzine 25 MG TAB PO PRN (19:10)
[2017-04-22] MEDS: LATANOPROST 0.005% OPHTH SOLN 2.5 ML OU SCH (20:34)
[2017-04-22] MEDS: PERPHENAZINE 2 MG TAB PO SCH (20:35)
[2017-04-22] MEDS: **NOTE PATIENT COMMENT** MISC XX SCH (20:36)
[2017-04-23 06:51] VITALS: BP 129/61
[2017-04-23] MEDS: LIDOCAINE 5% (LIDODERM) PATCH TD SCH (09:00)
[2017-04-23] MEDS: NYSTATIN 100,000 UNITS/GM TOPICAL PWD 15 GM TOP SCH (09:00)
[2017-04-23] MEDS: AUGMENTIN 875 MG TAB PO SCH ×2 (09:04→20:18)
[2017-04-23] MEDS: CHLORHEXIDINE GLUCONATE 0.12 % 15ML UDC (PERIDEX ORAL RINSE) MT SCH ×3 (09:04→20:19)
[2017-04-23] MEDS: FLUoxetine 20 MG CAP PO SCH (09:04)
[2017-04-23] MEDS: ACETAMINOPHEN TAB 650MG DOSE (2X325MG) PO PRN (11:48)
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
[2017-04-23 18:00] VITALS: BP 152/72
[2017-04-23] MEDS: PERPHENAZINE 2 MG TAB PO SCH (20:18)
[2017-04-23] MEDS: LATANOPROST 0.005% OPHTH SOLN 2.5 ML OU SCH (20:19)
[2017-04-23] MEDS: hydrOXYzine 25 MG TAB PO PRN (20:19)
[2017-04-23] MEDS: **NOTE PATIENT COMMENT** MISC XX SCH (20:20)
[2017-04-24 06:01] VITALS: BP 110/69
[2017-04-24] MEDS: NYSTATIN 100,000 UNITS/GM TOPICAL PWD 15 GM TOP SCH (09:00)
[2017-04-24] MEDS: LIDOCAINE 5% (LIDODERM) PATCH TD SCH (09:00)
[2017-04-24] MEDS: FLUoxetine 20 MG CAP PO SCH (09:03)
[2017-04-24] MEDS: AUGMENTIN 875 MG TAB PO SCH ×2 (09:03→20:22)
[2017-04-24] MEDS: CHLORHEXIDINE GLUCONATE 0.12 % 15ML UDC (PERIDEX ORAL RINSE) MT SCH ×3 (09:04→22:13)
--- NOTE | 2017-04-24 12:06 | MHIPNPDOC ---
[facility] Progress Note Progress Note DATE OF SERVICE: 04/24/17 HISTORY: day 26 of admission following disagreement with TLS staff/paranoia VITAL SIGNS: See below. NEW TEST RESULTS: Labs reviewed. Fasting Glucose is high on [facility] 04/19/17 CURRENT MEDICATIONS: See below. MENTAL STATUS EXAMINATION: Patient is a 42-year old male, who is wearing street clothes, dis-sheveled, pacing and appears internally preoccupied. Speech: Is hyperverbal, pressured, non-stop Language skills are intact Thought processes including: paranoia, suspicious, loose associations. Thought content: things of the past, things of the future. Abstract reasoning, and computation: concrete. Description of associations: loose Description of abnormal or psychotic thoughts: auditory hallucinations of voices , music and other sounds. No si or hi today Judgment: limited Insight: very poor. Orientation: oriented in all spheres Recent and remote memory: intact Attention span and concentration: adequate Fund of knowledge:limited. denies he has a mental illness Mood: depressed and anxious Affect: congruent DIAGNOSES: 1. Paranoid schizophrenia, chronic 2. borderline personality disorder 3. nicotine dependence. 4. hyperlipidemia 5. Glaucoma 6. Joint pain, chronic 7. Nicotine dependence 8. Poor dentition 9. h/o Pulmonary embolis in May 2016 ASSESSMENT: pt is observed pacing, talking to self or smiling, appears distressed. he is anxious for discharge and wants to leave but is unsure as to what to expect at his new residence. pt lacks understanding that he needs to compromise and get along with others even if he disagrees with them. He talks about trying Latuda but insisted he was over medicated and wanted it discontinues on his previous admission. Pt is labile. Pleasant one minute and angry and arguing the next. Pt is in need of a mood stabilizer but refuses depakote and lithium. he is on Abilify Maintena and it appears to be activating him. He is worse a week or 2 after the shot with hypomania. He cannot stop talking. He was much better on Depakote which he abruptly stopped taking due to suspicion of weight increase. MANAGEMENT PLAN: pt is scheduled for discharge as soon as TLS has verification his AOT from [facility] will be accepted in [facility] and no transfer will need to take place. TIME SPENT: 15 minutes. Vital Signs Vital Signs Date Time Temp Pulse Resp B/P (MAP) Pulse Ox O2 Delivery O2 Flow Rate FiO2 04/24/17 06:01 97.7 94 18 110/69 (83) 04/20/17 06:09 Room Air Current Medications Current Medications Acetaminophen (Tylenol Tab) 650 mg Q6HP PRN PO HEADACHE or DISCOMFORT Last administered on 04/23/17 11:48; Start 03/26/17 at 17:30; Stop 05/24/17 at 17:29 Al Hydrox/Mg Hydrox/Simethicone (Mylanta) 30 ml Q4HP PRN PO HEARTBURN/ INDIGESTION Last administered on 04/12/17 18:31; Start 03/26/17 at 17:30; Stop 04/24/17 at 11:17; Status DC Amoxicillin/ Clavulanate Potassium (Augmentin) 875 mg BID PO Last administered on 04/24/17 09:03; Start 04/19/17 at 09:00; Stop 04/26/17 at 08:59 Aripiprazole (AbiLIFY) 5 mg QHS PO Last administered on 03/26/17 21:39; Start 03/26/17 at 21:00; Stop 03/27/17 at 08:55; Status DC Aripiprazole (Abilify Maintena) 400 mg Q30D IM Last administered on 04/14/17 08:40; Start 04/14/17 at 09:00; Stop 05/14/17 at 08:59 Chlorhexidine Gluconate (Peridex Oral Rinse) 15 ml TID MT Last administered on 04/24/17 09:04; Start 03/26/17 at 21:00; Stop 05/24/17 at 20:59 Fluoxetine HCl (PROzac) 20 mg DAILY PO Last administered on 04/24/17 09:03; Start 03/27/17 at 09:00; Stop 04/26/17 at 08:59 Home Med (Med Rec Complete!) ASDIRECTED XX ; Start 03/26/17 at 18:30; Stop at 18:30; Status DC Hydroxyzine HCl (Atarax) 25 mg Q8HP PRN PO ANXIETY Last administered on 20:19; Start 03/26/17 at 20:45; Stop 05/24/17 at 20:44 Latanoprost (Xalatan 0.005% Op Soln) 1 drop QHS OU Last administered on 20:21; Start 03/26/17 at 21:00; Stop 05/24/17 at 20:59 Lidocaine (Lidoderm Patch) 1 patch DAILY TD Last administered on 04/11/17 11: 47; Start 03/27/17 at 09:00; Stop 04/26/17 at 08:59 Lorazepam (Ativan) 1 mg Q8HP PRN PO ANXIETY; Start 03/26/17 at 20:45; Stop 04/02 at 20:44; Status Cancel Magnesium Hydroxide (Milk Of Magnesia) 30 ml DAILYPRN PRN PO CONSTIPATION Last administered on 04/18/17 19:15; Start 03/26/17 at 17:30; Stop 04/24/17 at 11:17; Status DC Nicotine (Nicorette) 4 mg Q6HP PRN PO NICOTINE WITHDRAWAL Last administered on 04/20/17 13:51; Start 03/30/17 at 20:45; Stop 04/29/17 at 20:44 Non-Formulary Medication ( See Comment Field Below ) REMOVE LIDODERM PATCH DAILY@21 XX Last administered on 03/28/17 21:19; Start 03/27/17 at 21:00; Stop 04/26/17 at 20:59 Non-Formulary Medication ( See Comment Field Below ) SEE LABEL COMMENTS DAILY XX ; Start 04/18/17 at 09:00; Stop 04/18/17 at 10:21; Status DC Non-Formulary Medication ( See Comment Field Below ) SEE LABEL COMMENTS SECTION 1T@10 XX Last administered on 04/20/17 10:05; Start 04/20/17 at 10:00; Stop 04/20/17 at 23:59; Status DC Non-Formulary Medication ( See Comment Field Below ) offer until accepted. 1T@10 ID ; Start 04/20/17 at 10:00; Stop 05/17/17 at 09:59; Status UNV Nystatin (Mycostatin Powder, Nystop) DAILY TOP Last administered on 03/30/17 22:59; Start 03/30/17 at 09:00; Stop 04/29/17 at 08:59 Perphenazine (Trilafon) 4 mg BID PO Last administered on 04/05/17 20:59; Start 03/27/17 at 09:00; Stop 04/05/17 at 23:59; Status DC Perphenazine (Trilafon) 6 mg QHS PO Last administered on 04/23/17 20:18; Start 04/11/17 at 21:00; Stop 05/11/17 at 20:59 Perphenazine (Trilafon) 8 mg QHS PO Last administered on 04/10/17 21:13; Start 04/06/17 at 21:00; Stop 04/11/17 at 09:54; Status DC Trazodone HCl (Desyrel) 50 mg QHSP PRN PO INSOMNIA; Start 03/26/17 at 17:30; Stop 05/24/17 at 17:29 Tuberculin PPD (Aplisol, Ppd) 5 units 1T@10 ID Last administered on 04/18/17 13 :23; Start 04/18/17 at 10:00; Stop 04/18/17 at 23:59; Status DC Valproic Acid (Depakene) 500 mg QAM PO Last administered on 04/12/17 09:17; Start 03/27/17 at 09:00; Stop 04/17/17 at 17:50; Status DC Valproic Acid (Depakene) 750 mg QHS PO Last administered on 04/11/17 20:32; Start 03/26/17 at 21:00; Stop 04/17/17 at 17:50; Status DC Allergies Coded Allergies: Mirella (Verified Allergy, Unknown, 02/10/08) Idania Abrams Apr 24, 2017 12:05
[2017-04-24] MEDS: ACETAMINOPHEN TAB 650MG DOSE (2X325MG) PO PRN (12:09)
[2017-04-24 18:00] VITALS: BP 150/76
[2017-04-24] MEDS: PERPHENAZINE 2 MG TAB PO SCH (20:22)
[2017-04-24] MEDS: LATANOPROST 0.005% OPHTH SOLN 2.5 ML OU SCH (20:23)
[2017-04-24] MEDS: **NOTE PATIENT COMMENT** MISC XX SCH (20:24)
[2017-04-25 06:29] VITALS: BP 151/77
[2017-04-25] MEDS: LIDOCAINE 5% (LIDODERM) PATCH TD SCH (09:00)
[2017-04-25] MEDS: NYSTATIN 100,000 UNITS/GM TOPICAL PWD 15 GM TOP SCH (09:00)
[2017-04-25] MEDS: CHLORHEXIDINE GLUCONATE 0.12 % 15ML UDC (PERIDEX ORAL RINSE) MT SCH ×3 (09:01→22:09)
[2017-04-25] MEDS: FLUoxetine 20 MG CAP PO SCH (09:01)
[2017-04-25] MEDS: AUGMENTIN 875 MG TAB PO SCH ×2 (09:01→22:08)
--- NOTE | 2017-04-25 13:19 | MHIPNPDOC ---
[facility] Progress Note Progress Note DATE OF SERVICE: 04/25/17 HISTORY: day 27 of admission. Pt paranoid and suspicious of staff at his residence. VITAL SIGNS: See below. NEW TEST RESULTS: na CURRENT MEDICATIONS: See below. MENTAL STATUS EXAMINATION: Patient is a 42-year old male, who is appropriately attired, has long hair- unruly, makes good eye contact and is hyper. Speech: Is spontaneous, over-productive, can't stop for very long Language skills are intact Thought processes including: paranoia is pervasive in most conversations, he has not trust in anyone. Thought content: odd Abstract reasoning, and computation: concrete. Description of associations: loose. Description of abnormal or psychotic thoughts: pt denies si and hi. pt reports frequent auditory hallucinations on a daily basis. pt appears to be responding to internal stimuli at times. Judgment: poor Insight: poor. Orientation: good in all spheres. Recent and remote memory: intact. Attention span and concentration: good if allowed to control the conversation. Not sure how much he hears when he is not talking. Fund of knowledge: impaired due to haley Mood: dysphoric Affect: blunted DIAGNOSES: 1. Paranoid schizophrenia, chronic 2. HTN 3. hyperlipidemia 4. Glaucoma 5. Joint pain, chronic 6. Nicotine dependence 7. Poor dentition 8. h/o Pulmonary embolis in May 2016 ASSESSMENT:Pt approached marketing copywriter to state he was accepted at [facility]. No discharge date offered by TLS yet. Pt is optimistic. Pt was told he was doing better on the Depakote and asked to reconsider restarting the medication again to help improve his chance of succeeding once he leaves the hospital. he declined and said he would do Lamictal. He really needs impulse control so Lamictal is not the agent that would help him achieve this. he objects to Depakote due to weight gain and feeling slowed down on the medication. He continues to drink as much decaffinated coffee or tea on the unit he can get all day long. He is observed pacing rapidly at times. he was not doing this on his last admission. MANAGEMENT PLAN: No med changes will be implemented so close to discharge. Pt encouraged to use Prn Atarax as needed for calming. Pt encouraged to reconsider stopping all the Depakote, Suggested he resume taking half the dose he was on before as he was doing much better before he refused Depakote. Pt insists on taking Prozac and this should be discontinued as well but he refusing to follow providers recommendations. Prognosis for discharge is bleak. He will likely return to the hospital setting within one week. TIME SPENT: 30minutes. Vital Signs Vital Signs Date Time Temp Pulse Resp B/P (MAP) Pulse Ox O2 Delivery O2 Flow Rate FiO2 04/25/17 06:29 96.5 100 20 151/77 (101) 04/20/17 06:09 Room Air Current Medications Current Medications Acetaminophen (Tylenol Tab) 650 mg Q6HP PRN PO HEADACHE or DISCOMFORT Last administered on 04/24/17 12:09; Start 03/26/17 at 17:30; Stop 05/24/17 at 17:29 Al Hydrox/Mg Hydrox/Simethicone (Mylanta) 30 ml Q4HP PRN PO HEARTBURN/ INDIGESTION Last administered on 04/12/17 18:31; Start 03/26/17 at 17:30; Stop 04/24/17 at 11:17; Status DC Amoxicillin/ Clavulanate Potassium (Augmentin) 875 mg BID PO Last administered on 04/25/17 09:01; Start 04/19/17 at 09:00; Stop 04/26/17 at 08:59 Aripiprazole (AbiLIFY) 5 mg QHS PO Last administered on 03/26/17 21:39; Start 03/26/17 at 21:00; Stop 03/27/17 at 08:55; Status DC Aripiprazole (Abilify Maintena) 400 mg Q30D IM Last administered on 04/14/17 08:40; Start 04/14/17 at 09:00; Stop 05/14/17 at 08:59 Chlorhexidine Gluconate (Peridex Oral Rinse) 15 ml TID MT Last administered on 04/25/17 09:01; Start 03/26/17 at 21:00; Stop 05/24/17 at 20:59 Fluoxetine HCl (PROzac) 20 mg DAILY PO Last administered on 04/25/17 09:01; Start 03/27/17 at 09:00; Stop 04/26/17 at 08:59 Home Med (Med Rec Complete!) ASDIRECTED XX ; Start 03/26/17 at 18:30; Stop at 18:30; Status DC Hydroxyzine HCl (Atarax) 25 mg Q8HP PRN PO ANXIETY Last administered on 20:19; Start 03/26/17 at 20:45; Stop 05/24/17 at 20:44 Latanoprost (Xalatan 0.005% Op Soln) 1 drop QHS OU Last administered on 20:21; Start 03/26/17 at 21:00; Stop 05/24/17 at 20:59 Lidocaine (Lidoderm Patch) 1 patch DAILY TD Last administered on 04/11/17 11: 47; Start 03/27/17 at 09:00; Stop 04/26/17 at 08:59 Lorazepam (Ativan) 1 mg Q8HP PRN PO ANXIETY; Start 03/26/17 at 20:45; Stop 04/02 at 20:44; Status Cancel Magnesium Hydroxide (Milk Of Magnesia) 30 ml DAILYPRN PRN PO CONSTIPATION Last administered on 04/18/17 19:15; Start 03/26/17 at 17:30; Stop 04/24/17 at 11:17; Status DC Nicotine (Nicorette) 4 mg Q6HP PRN PO NICOTINE WITHDRAWAL Last administered on 04/20/17 13:51; Start 03/30/17 at 20:45; Stop 04/29/17 at 20:44 Non-Formulary Medication ( See Comment Field Below ) REMOVE LIDODERM PATCH DAILY@21 XX Last administered on 03/28/17 21:19; Start 03/27/17 at 21:00; Stop 04/26/17 at 20:59 Non-Formulary Medication ( See Comment Field Below ) SEE LABEL COMMENTS DAILY XX ; Start 04/18/17 at 09:00; Stop 04/18/17 at 10:21; Status DC Non-Formulary Medication ( See Comment Field Below ) SEE LABEL COMMENTS SECTION 1T@10 XX Last administered on 04/20/17 10:05; Start 04/20/17 at 10:00; Stop 04/20/17 at 23:59; Status DC Non-Formulary Medication ( See Comment Field Below ) offer until accepted. 1T@10 ID ; Start 04/20/17 at 10:00; Stop 05/17/17 at 09:59; Status UNV Nystatin (Mycostatin Powder, Nystop) DAILY TOP Last administered on 03/30/17 22:59; Start 03/30/17 at 09:00; Stop 04/29/17 at 08:59 Perphenazine (Trilafon) 4 mg BID PO Last administered on 04/05/17 20:59; Start 03/27/17 at 09:00; Stop 04/05/17 at 23:59; Status DC Perphenazine (Trilafon) 6 mg QHS PO Last administered on 04/24/17 20:22; Start 04/11/17 at 21:00; Stop 05/11/17 at 20:59 Perphenazine (Trilafon) 8 mg QHS PO Last administered on 04/10/17 21:13; Start 04/06/17 at 21:00; Stop 04/11/17 at 09:54; Status DC Trazodone HCl (Desyrel) 50 mg QHSP PRN PO INSOMNIA; Start 03/26/17 at 17:30; Stop 05/24/17 at 17:29 Tuberculin PPD (Aplisol, Ppd) 5 units 1T@10 ID Last administered on 04/18/17 13 :23; Start 04/18/17 at 10:00; Stop 04/18/17 at 23:59; Status DC Valproic Acid (Depakene) 500 mg QAM PO Last administered on 04/12/17 09:17; Start 03/27/17 at 09:00; Stop 04/17/17 at 17:50; Status DC Valproic Acid (Depakene) 750 mg QHS PO Last administered on 04/11/17 20:32; Start 03/26/17 at 21:00; Stop 04/17/17 at 17:50; Status DC Allergies Coded Allergies: Mirella (Verified Allergy, Unknown, 02/10/08) Idania Abrams Apr 25, 2017 13:19
[2017-04-25] MEDS: ACETAMINOPHEN TAB 650MG DOSE (2X325MG) PO PRN (16:45)
[2017-04-25] MEDS: hydrOXYzine 25 MG TAB PO PRN (18:16)
[2017-04-25 18:25] VITALS: BP 130/71
[2017-04-25] MEDS: LATANOPROST 0.005% OPHTH SOLN 2.5 ML OU SCH (21:00)
[2017-04-25] MEDS: **NOTE PATIENT COMMENT** MISC XX SCH (21:00)
[2017-04-25] MEDS: PERPHENAZINE 2 MG TAB PO SCH (22:08)
[2017-04-26] MEDS: ACETAMINOPHEN TAB 650MG DOSE (2X325MG) PO PRN (06:24)
[2017-04-26 07:12] VITALS: BP 116/75
[2017-04-26] MEDS: NYSTATIN 100,000 UNITS/GM TOPICAL PWD 15 GM TOP SCH (09:00)
[2017-04-26] MEDS: AUGMENTIN 875 MG TAB PO SCH ×2 (09:21→20:17)
[2017-04-26] MEDS: FLUoxetine 10 MG CAP PO SCH (09:21)
[2017-04-26] MEDS: CHLORHEXIDINE GLUCONATE 0.12 % 15ML UDC (PERIDEX ORAL RINSE) MT SCH ×3 (09:21→20:17)
--- NOTE | 2017-04-26 15:59 | MHIPNPDOC ---
[facility] Progress Note Progress Note DATE OF SERVICE: 04/26/17 HISTORY: day 28, pt admitted with paranoid ideation and fears others were going to harm him. VITAL SIGNS: See below. NEW TEST RESULTS: na CURRENT MEDICATIONS: See below. MENTAL STATUS EXAMINATION: Patient is a 42-year old male, who is appropriately attired, has long hair- unruly, makes good eye contact and is hyper. Speech: Is spontaneous, over-productive, can't stop for very long Language skills are intact Thought processes including: paranoia is pervasive in most conversations, he has not trust in anyone. Thought content: odd Abstract reasoning, and computation: concrete. Description of associations: loose. Description of abnormal or psychotic thoughts: pt denies si and hi. pt reports frequent auditory hallucinations on a daily basis. pt appears to be responding to internal stimuli at times. Judgment: poor Insight: poor. Orientation: good in all spheres. Recent and remote memory: intact. Attention span and concentration: good if allowed to control the conversation. Not sure how much he hears when he is not talking. Fund of knowledge: impaired due to haley Mood: dysphoric Affect: blunted DIAGNOSES: 1. Paranoid schizophrenia, chronic 2. HTN 3. hyperlipidemia 4. Glaucoma 5. Joint pain, chronic 6. Nicotine dependence 7. Poor dentition 8. h/o Pulmonary embolis in May 2016 ASSESSMENT:visible in hallways, pacing, dis-sheveled but pleasant and not a behavior challenge for the unit. Mood is good. He is ready to leave and hopefully he will transition well and not be so rigid about how things have to be in his new residence. Eating and sleeping well. He said he feels he has gained weight and it was explained this could be related to the MROEAU. Once he is out of the hospital and able to ride his bike and be more active the weight should begin to decrease. Support and encouragement rendered. MANAGEMENT PLAN: No med changes will be implemented so close to discharge. ( UNLESS pt would agree to a mood stablizer that would be effective) Pt encouraged to use Prn Atarax as needed for calming. Pt encouraged to reconsider stopping all the Depakote, Suggested he resume taking half the dose he was on before as he was doing much better before he refused Depakote. Pt insists on taking Prozac and this should be discontinued as well but he refusing to follow providers recommendations. Prozac was up for renewal so dose was decreased to 10 mg. Prognosis for discharge is bleak. He will likely return to the hospital setting within one week. TIME SPENT: 15 minutes. Vital Signs Vital Signs Date Time Temp Pulse Resp B/P (MAP) Pulse Ox O2 Delivery O2 Flow Rate FiO2 04/26/17 07:12 97.5 88 18 116/75 (89) 04/20/17 06:09 Room Air Current Medications Current Medications Acetaminophen (Tylenol Tab) 650 mg Q6HP PRN PO HEADACHE or DISCOMFORT Last administered on 04/26/17 06:24; Start 03/26/17 at 17:30; Stop 05/24/17 at 17:29 Al Hydrox/Mg Hydrox/Simethicone (Mylanta) 30 ml Q4HP PRN PO HEARTBURN/ INDIGESTION Last administered on 04/12/17 18:31; Start 03/26/17 at 17:30; Stop 04/24/17 at 11:17; Status DC Amoxicillin/ Clavulanate Potassium (Augmentin) 875 mg BID PO Last administered on 04/26/17 09:21; Start 04/19/17 at 09:00; Stop 04/27/17 at 23:59 Aripiprazole (AbiLIFY) 5 mg QHS PO Last administered on 03/26/17 21:39; Start 03/26/17 at 21:00; Stop 03/27/17 at 08:55; Status DC Aripiprazole (Abilify Maintena) 400 mg Q30D IM Last administered on 04/14/17 08:40; Start 04/14/17 at 09:00; Stop 05/14/17 at 08:59 Chlorhexidine Gluconate (Peridex Oral Rinse) 15 ml TID MT Last administered on 04/26/17 09:21; Start 03/26/17 at 21:00; Stop 05/24/17 at 20:59 Fluoxetine HCl (PROzac) 10 mg QAM PO Last administered on 04/26/17 09:21; Start 04/26/17 at 09:00; Stop 05/26/17 at 08:59 Fluoxetine HCl (PROzac) 20 mg DAILY PO Last administered on 04/25/17 09:01; Start 03/27/17 at 09:00; Stop 04/25/17 at 17:14; Status DC Home Med (Med Rec Complete!) ASDIRECTED XX ; Start 03/26/17 at 18:30; Stop at 18:30; Status DC Hydroxyzine HCl (Atarax) 25 mg Q8HP PRN PO ANXIETY Last administered on 18:16; Start 03/26/17 at 20:45; Stop 05/24/17 at 20:44 Latanoprost (Xalatan 0.005% Op Soln) 1 drop QHS OU Last administered on 20:21; Start 03/26/17 at 21:00; Stop 05/24/17 at 20:59 Lidocaine (Lidoderm Patch) 1 patch DAILY TD Last administered on 04/11/17 11: 47; Start 03/27/17 at 09:00; Stop 04/26/17 at 08:59; Status DC Lorazepam (Ativan) 1 mg Q8HP PRN PO ANXIETY; Start 03/26/17 at 20:45; Stop 04/02 at 20:44; Status Cancel Magnesium Hydroxide (Milk Of Magnesia) 30 ml DAILYPRN PRN PO CONSTIPATION Last administered on 04/18/17 19:15; Start 03/26/17 at 17:30; Stop 04/24/17 at 11:17; Status DC Miscellaneous (Unresolved Clarification Entry) SEE LABEL COMMENTS UNRESOLVED XX ; Start 04/26/17 at 00:01; Stop 04/26/17 at 10:46; Status DC Nicotine (Nicorette) 4 mg Q6HP PRN PO NICOTINE WITHDRAWAL Last administered on 04/20/17 13:51; Start 03/30/17 at 20:45; Stop 04/25/17 at 13:08; Status DC Non-Formulary Medication ( See Comment Field Below ) REMOVE LIDODERM PATCH DAILY@21 XX Last administered on 03/28/17 21:19; Start 03/27/17 at 21:00; Stop 04/26/17 at 10:48; Status DC Non-Formulary Medication ( See Comment Field Below ) SEE LABEL COMMENTS DAILY XX ; Start 04/18/17 at 09:00; Stop 04/18/17 at 10:21; Status DC Non-Formulary Medication ( See Comment Field Below ) SEE LABEL COMMENTS SECTION 1T@10 XX Last administered on 04/20/17 10:05; Start 04/20/17 at 10:00; Stop 04/20/17 at 23:59; Status DC Non-Formulary Medication ( See Comment Field Below ) offer until accepted. 1T@10 ID ; Start 04/20/17 at 10:00; Stop 05/17/17 at 09:59; Status UNV Nystatin (Mycostatin Powder, Nystop) DAILY TOP Last administered on 03/30/17 22:59; Start 03/30/17 at 09:00; Stop 04/29/17 at 08:59 Perphenazine (Trilafon) 4 mg BID PO Last administered on 04/05/17 20:59; Start 03/27/17 at 09:00; Stop 04/05/17 at 23:59; Status DC Perphenazine (Trilafon) 6 mg QHS PO Last administered on 04/25/17 22:08; Start 04/11/17 at 21:00; Stop 05/11/17 at 20:59 Perphenazine (Trilafon) 8 mg QHS PO Last administered on 04/10/17 21:13; Start 04/06/17 at 21:00; Stop 04/11/17 at 09:54; Status DC Trazodone HCl (Desyrel) 50 mg QHSP PRN PO INSOMNIA; Start 03/26/17 at 17:30; Stop 05/24/17 at 17:29 Tuberculin PPD (Aplisol, Ppd) 5 units 1T@10 ID Last administered on 04/18/17 13 :23; Start 04/18/17 at 10:00; Stop 04/18/17 at 23:59; Status DC Valproic Acid (Depakene) 500 mg QAM PO Last administered on 04/12/17 09:17; Start 03/27/17 at 09:00; Stop 04/17/17 at 17:50; Status DC Valproic Acid (Depakene) 750 mg QHS PO Last administered on 04/11/17 20:32; Start 03/26/17 at 21:00; Stop 04/17/17 at 17:50; Status DC Allergies Coded Allergies: Pecan (Verified Allergy, Unknown, 02/10/08) Idania Abrams Apr 26, 2017 15:59
[2017-04-26 18:00] VITALS: BP 151/68
[2017-04-26] MEDS: PERPHENAZINE 2 MG TAB PO SCH (20:17)
[2017-04-26] MEDS: LATANOPROST 0.005% OPHTH SOLN 2.5 ML OU SCH (21:00)
[2017-04-27 06:00] VITALS: BP 121/74
[2017-04-27] MEDS: NYSTATIN 100,000 UNITS/GM TOPICAL PWD 15 GM TOP SCH (09:00)
[2017-04-27] MEDS: MOM 30ML SUSPENSION UDC PO PRN (09:00)
[2017-04-27] MEDS: FLUoxetine 10 MG CAP PO SCH (09:00)
[2017-04-27] MEDS: AUGMENTIN 875 MG TAB PO SCH ×2 (09:00→21:55)
[2017-04-27] MEDS: CHLORHEXIDINE GLUCONATE 0.12 % 15ML UDC (PERIDEX ORAL RINSE) MT SCH ×3 (09:01→21:55)
[2017-04-27 18:00] VITALS: BP 131/82
[2017-04-27] MEDS: LATANOPROST 0.005% OPHTH SOLN 2.5 ML OU SCH (21:00)
[2017-04-27] MEDS: PERPHENAZINE 2 MG TAB PO SCH (21:55)
[2017-04-28 06:00] VITALS: BP 126/63
[2017-04-28] MEDS: MOM 30ML SUSPENSION UDC PO PRN (08:53)
[2017-04-28] MEDS: CHLORHEXIDINE GLUCONATE 0.12 % 15ML UDC (PERIDEX ORAL RINSE) MT SCH ×4 (08:53→21:20)
[2017-04-28] MEDS: FLUoxetine 10 MG CAP PO SCH (08:53)
[2017-04-28] MEDS: NYSTATIN 100,000 UNITS/GM TOPICAL PWD 15 GM TOP SCH (08:54)
[2017-04-28 18:00] VITALS: BP 131/72
[2017-04-28] MEDS: LATANOPROST 0.005% OPHTH SOLN 2.5 ML OU SCH (21:00)
[2017-04-28] MEDS: PERPHENAZINE 2 MG TAB PO SCH (21:20)
[2017-04-29 06:10] VITALS: BP 153/99
[2017-04-29] MEDS: FLUoxetine 10 MG CAP PO SCH (09:25)
[2017-04-29] MEDS: CHLORHEXIDINE GLUCONATE 0.12 % 15ML UDC (PERIDEX ORAL RINSE) MT SCH ×3 (10:13→21:16)
--- NOTE | 2017-04-29 15:27 | MHIPNPDOC ---
[facility] Progress Note Progress Note DATE OF SERVICE: 04/29/17 HISTORY: day , pt admitted due to paranoia and suspicion directed at staff at his community residence. VITAL SIGNS: See below. NEW TEST RESULTS: na CURRENT MEDICATIONS: See below. MENTAL STATUS EXAMINATION: Patient is a 42-year old male, who has long graying hair, wearing street clothes , walking swiftly and presents with pressured speech at times. Speech: Is fluent, spontaneous, lots of talking, somethings are relevant, others are not. Language skills are good Thought processes including: goal directed, self-absorbed Thought content: delusions and paranoia Abstract reasoning, and computation: concrete. Description of associations: loose Description of abnormal or psychotic thoughts: fears he is being poisoned , complaining about peers, somatic complaints. says he will commit suicide if not allowed to go to [facility]. Judgment: poor Insight: very limited. Orientation: oriented to month and year, not day, oriented to name, place and person. Recent and remote memory: appears intact Attention span and concentration: adequate if something he is interested in. Fund of knowledge: impaired Mood: manic. Affect: congruent DIAGNOSES: 1. Paranoid Schizophrenia, chronic 2. Nicotine dependence 3. Alcohol abuse in remission 4. HTN 5. hyperlipidemia 6. Glaucoma 7. Joint pain, chronic 8. Poor dentition 9. h/o Pulmonary embolis in May 2016 ASSESSMENT: pt is attending groups after an absence this weekend. He is not sleeping as much as we would like. He needs 6-8 hours at least every night. He is complaining of weight increase which will likely subside after discharge. His movements and speech are rapid. MANAGEMENT PLAN: pt will not consider writers opinion regarding medications. He was much better on Depakote but began to refuse due to weight increase. Pt is awaiting placement at [facility] and he seems to have decompensated further over the weekend. He denies this and blames his upset state of mind on the other people on the unit. He denies any responsibility could be related to change in meds. Pt would likely do much better on Invega Sustenna but he will not change to this due to weight concerns. He seems to have moer haley on Maintena especially since he lacks a mood stabilizer. It is unlikely latuda would be of benefit to him as his impulse control is his main problem after his paranoia. TIME SPENT: 15 minutes. Vital Signs Vital Signs Date Time Temp Pulse Resp B/P (MAP) Pulse Ox O2 Delivery O2 Flow Rate FiO2 04/29/17 06:10 96.7 84 18 153/99 (117) Current Medications Current Medications Acetaminophen (Tylenol Tab) 650 mg Q6HP PRN PO HEADACHE or DISCOMFORT Last administered on 04/26/17 06:24; Start 03/26/17 at 17:30; Stop 05/24/17 at 17:29 Al Hydrox/Mg Hydrox/Simethicone (Mylanta) 30 ml Q4HP PRN PO HEARTBURN/ INDIGESTION Last administered on 04/12/17 18:31; Start 03/26/17 at 17:30; Stop 04/24/17 at 11:17; Status DC Amoxicillin/ Clavulanate Potassium (Augmentin) 875 mg BID PO Last administered on 04/27/17 21:55; Start 04/19/17 at 09:00; Stop 04/27/17 at 23:59; Status DC Aripiprazole (AbiLIFY) 5 mg QHS PO Last administered on 03/26/17 21:39; Start 03/26/17 at 21:00; Stop 03/27/17 at 08:55; Status DC Aripiprazole (Abilify Maintena) 400 mg Q30D IM Last administered on 04/14/17 08:40; Start 04/14/17 at 09:00; Stop 05/14/17 at 08:59 Chlorhexidine Gluconate (Peridex Oral Rinse) 15 ml TID MT Last administered on 04/29/17 10:13; Start 03/26/17 at 21:00; Stop 05/24/17 at 20:59 Fluoxetine HCl (PROzac) 10 mg QAM PO Last administered on 04/29/17 09:25; Start 04/26/17 at 09:00; Stop 05/26/17 at 08:59 Fluoxetine HCl (PROzac) 20 mg DAILY PO Last administered on 04/25/17 09:01; Start 03/27/17 at 09:00; Stop 04/25/17 at 17:14; Status DC Home Med (Med Rec Complete!) ASDIRECTED XX ; Start 03/26/17 at 18:30; Stop at 18:30; Status DC Hydroxyzine HCl (Atarax) 25 mg Q8HP PRN PO ANXIETY Last administered on 18:16; Start 03/26/17 at 20:45; Stop 05/24/17 at 20:44 Latanoprost (Xalatan 0.005% Op Soln) 1 drop QHS OU Last administered on 20:21; Start 03/26/17 at 21:00; Stop 05/24/17 at 20:59 Lidocaine (Lidoderm Patch) 1 patch DAILY TD Last administered on 04/11/17 11: 47; Start 03/27/17 at 09:00; Stop 04/26/17 at 08:59; Status DC Lorazepam (Ativan) 1 mg Q8HP PRN PO ANXIETY; Start 03/26/17 at 20:45; Stop 04/02 at 20:44; Status Cancel Magnesium Hydroxide (Milk Of Magnesia) 30 ml DAILYPRN PRN PO CONSTIPATION Last administered on 04/18/17 19:15; Start 03/26/17 at 17:30; Stop 04/24/17 at 11:17; Status DC Magnesium Hydroxide (Milk Of Magnesia) 30 ml DAILYPRN PRN PO CONSTIPATION Last administered on 04/28/17 08:53; Start 04/26/17 at 23:15; Stop 05/26/17 at 23:14 Miscellaneous (Unresolved Clarification Entry) SEE LABEL COMMENTS UNRESOLVED XX ; Start 04/29/17 at 00:01; Stop 05/29/17 at 00:00 Miscellaneous (Unresolved Clarification Entry) SEE LABEL COMMENTS UNRESOLVED XX ; Start 04/26/17 at 00:01; Stop 04/26/17 at 10:46; Status DC Nicotine (Nicorette) 4 mg Q6HP PRN PO NICOTINE WITHDRAWAL Last administered on 04/20/17 13:51; Start 03/30/17 at 20:45; Stop 04/25/17 at 13:08; Status DC Non-Formulary Medication ( See Comment Field Below ) REMOVE LIDODERM PATCH DAILY@21 XX Last administered on 03/28/17 21:19; Start 03/27/17 at 21:00; Stop 04/26/17 at 10:48; Status DC Non-Formulary Medication ( See Comment Field Below ) SEE LABEL COMMENTS DAILY XX ; Start 04/18/17 at 09:00; Stop 04/18/17 at 10:21; Status DC Non-Formulary Medication ( See Comment Field Below ) SEE LABEL COMMENTS SECTION 1T@10 XX Last administered on 04/20/17 10:05; Start 04/20/17 at 10:00; Stop 04/20/17 at 23:59; Status DC Non-Formulary Medication ( See Comment Field Below ) offer until accepted. 1T@10 ID ; Start 04/20/17 at 10:00; Stop 05/17/17 at 09:59; Status UNV Nystatin (Mycostatin Powder, Nystop) DAILY TOP Last administered on 03/30/17 22:59; Start 03/30/17 at 09:00; Stop 04/29/17 at 08:59; Status DC Perphenazine (Trilafon) 4 mg BID PO Last administered on 04/05/17 20:59; Start 03/27/17 at 09:00; Stop 04/05/17 at 23:59; Status DC Perphenazine (Trilafon) 6 mg QHS PO Last administered on 04/28/17 21:20; Start 04/11/17 at 21:00; Stop 05/11/17 at 20:59 Perphenazine (Trilafon) 8 mg QHS PO Last administered on 04/10/17 21:13; Start 04/06/17 at 21:00; Stop 04/11/17 at 09:54; Status DC Trazodone HCl (Desyrel) 50 mg QHSP PRN PO INSOMNIA; Start 03/26/17 at 17:30; Stop 05/24/17 at 17:29 Tuberculin PPD (Aplisol, Ppd) 5 units 1T@10 ID Last administered on 04/18/17 13 :23; Start 04/18/17 at 10:00; Stop 04/18/17 at 23:59; Status DC Valproic Acid (Depakene) 500 mg QAM PO Last administered on 04/12/17 09:17; Start 03/27/17 at 09:00; Stop 04/17/17 at 17:50; Status DC Valproic Acid (Depakene) 750 mg QHS PO Last administered on 04/11/17t 20:32; Start 03/26/17 at 21:00; Stop 04/17/17 at 17:50; Status DC Allergies Coded Allergies: Mirella (Verified Allergy, Unknown, 02/10/08) Idania Abrams Apr 29, 2017 15:27
[2017-04-29] MEDS: MOM 30ML SUSPENSION UDC PO PRN (16:06)
[2017-04-29 18:00] VITALS: BP 126/60
[2017-04-29] MEDS: ACETAMINOPHEN TAB 650MG DOSE (2X325MG) PO PRN (19:14)
[2017-04-29] MEDS: LATANOPROST 0.005% OPHTH SOLN 2.5 ML OU SCH (21:00)
[2017-04-29] MEDS: PERPHENAZINE 2 MG TAB PO SCH (21:16)
[2017-04-30 06:10] VITALS: BP 112/55
[2017-04-30] MEDS: FLUoxetine 10 MG CAP PO SCH (09:26)
[2017-04-30] MEDS: CHLORHEXIDINE GLUCONATE 0.12 % 15ML UDC (PERIDEX ORAL RINSE) MT SCH ×3 (09:27→21:38)
--- NOTE | 2017-04-30 14:41 | MHIPNPDOC ---
[facility] Progress Note Progress Note DATE OF SERVICE: 04/30/17 HISTORY: day 32. Still awaiting bed space at either [facility] or [facility]. Pt admitted with paranoid delusions. VITAL SIGNS: See below. NEW TEST RESULTS: pt requesting to have Iron level checked. CURRENT MEDICATIONS: See below. MENTAL STATUS EXAMINATION: Patient is a 42-year old male, who is wearing street clothes, long hair, clean, fair eye contact, non-stop talking. Speech: Is hyper-verbal Language skills are good Thought processes including: paranoia, rigid thinking, everything is black or white. auditory hallucinations Thought content: somatically preoccupied.. Abstract reasoning, and computation: concrete. Description of associations: loose. Description of abnormal or psychotic thoughts: No SI or HI. paranoid of others, no trust in other people, auditory hallucinations. Judgment: limited Insight: poor. Orientation: well oriented in all spheres. Recent and remote memory: intact Attention span and concentration: fair. Fund of knowledge: impaired by psychosis. Mood: anxious. Affect: blunted. DIAGNOSES: 1. Paranoid schizophrenia, chronic 2. HTN 3. hyperlipidemia 4. Glaucoma 5. Joint pain, chronic 6. Nicotine dependence 7. Poor dentition 8. h/o Pulmonary embolis in May 2016 ASSESSMENT:pt reports 5 weeks without a cigarette. Had a craving last night but not so bad he needed Nicorette. Sleeping well with some day time napping but not everyday. Attending programming which he enjoys. Concerned with weight gain and assured him once he was out in the community where he can be more active the weight should start to come off. Po intake good. Denies constipation or diarrhea. Attending well to oral hygiene. Met for 1:1 today and could not get a word in. He talked the entire time. MANAGEMENT PLAN: Pt will be due for Maintena injection on 05/15. He will not discuss a different MOREAU as he fears weight gain on Invega, risperidone. He will not consider a mood stabilizer right now. He says he will not go to [facility] but would go to [facility]. Will discuss with DCP. Continue observation status, continue meds, continue group and 1:1 counseling. TIME SPENT: 30 minutes. Vital Signs Vital Signs Date Time Temp Pulse Resp B/P (MAP) Pulse Ox O2 Delivery O2 Flow Rate FiO2 04/30/17 06:10 97.6 63 18 112/55 (74) Room Air Current Medications Current Medications Acetaminophen (Tylenol Tab) 650 mg Q6HP PRN PO HEADACHE or DISCOMFORT Last administered on 04/29/17 19:14; Start 03/26/17 at 17:30; Stop 05/24/17 at 17:29 Al Hydrox/Mg Hydrox/Simethicone (Mylanta) 30 ml Q4HP PRN PO HEARTBURN/ INDIGESTION Last administered on 04/12/17 18:31; Start 03/26/17 at 17:30; Stop 04/24/17 at 11:17; Status DC Amoxicillin/ Clavulanate Potassium (Augmentin) 875 mg BID PO Last administered on 04/27/17 21:55; Start 04/19/17 at 09:00; Stop 04/27/17 at 23:59; Status DC Aripiprazole (AbiLIFY) 5 mg QHS PO Last administered on 03/26/17 21:39; Start 03/26/17 at 21:00; Stop 03/27/17 at 08:55; Status DC Aripiprazole (Abilify Maintena) 400 mg Q30D IM Last administered on 04/14/17 08:40; Start 04/14/17 at 09:00; Stop 05/14/17 at 08:59 Chlorhexidine Gluconate (Peridex Oral Rinse) 15 ml TID MT Last administered on 04/30/17 09:27; Start 03/26/17 at 21:00; Stop 05/24/17 at 20:59 Fluoxetine HCl (PROzac) 10 mg QAM PO Last administered on 04/30/17 09:26; Start 04/26/17 at 09:00; Stop 05/26/17 at 08:59 Fluoxetine HCl (PROzac) 20 mg DAILY PO Last administered on 04/25/17 09:01; Start 03/27/17 at 09:00; Stop 04/25/17 at 17:14; Status DC Home Med (Med Rec Complete!) ASDIRECTED XX ; Start 03/26/17 at 18:30; Stop at 18:30; Status DC Hydroxyzine HCl (Atarax) 25 mg Q8HP PRN PO ANXIETY Last administered on 18:16; Start 03/26/17 at 20:45; Stop 05/24/17 at 20:44 Latanoprost (Xalatan 0.005% Op Soln) 1 drop QHS OU Last administered on 20:21; Start 03/26/17 at 21:00; Stop 05/24/17 at 20:59 Lidocaine (Lidoderm Patch) 1 patch DAILY TD Last administered on 04/11/17 11: 47; Start 03/27/17 at 09:00; Stop 04/26/17 at 08:59; Status DC Lorazepam (Ativan) 1 mg Q8HP PRN PO ANXIETY; Start 03/26/17 at 20:45; Stop 04/02 at 20:44; Status Cancel Magnesium Hydroxide (Milk Of Magnesia) 30 ml DAILYPRN PRN PO CONSTIPATION Last administered on 04/18/17 19:15; Start 03/26/17 at 17:30; Stop 04/24/17 at 11:17; Status DC Magnesium Hydroxide (Milk Of Magnesia) 30 ml DAILYPRN PRN PO CONSTIPATION Last administered on 04/29/17 16:06; Start 04/26/17 at 23:15; Stop 05/26/17 at 23:14 Miscellaneous (Unresolved Clarification Entry) SEE LABEL COMMENTS UNRESOLVED XX ; Start 04/29/17 at 00:01; Stop 04/30/17 at 14:04; Status DC Miscellaneous (Unresolved Clarification Entry) SEE LABEL COMMENTS UNRESOLVED XX ; Start 04/30/17 at 00:01; Stop 05/30/17 at 00:00 Miscellaneous (Unresolved Clarification Entry) SEE LABEL COMMENTS UNRESOLVED XX ; Start 04/26/17 at 00:01; Stop 04/26/17 at 10:46; Status DC Nicotine (Nicorette) 4 mg Q6HP PRN PO NICOTINE WITHDRAWAL Last administered on 04/20/17 13:51; Start 03/30/17 at 20:45; Stop 04/25/17 at 13:08; Status DC Non-Formulary Medication ( See Comment Field Below ) REMOVE LIDODERM PATCH DAILY@21 XX Last administered on 03/28/17 21:19; Start 03/27/17 at 21:00; Stop 04/26/17 at 10:48; Status DC Non-Formulary Medication ( See Comment Field Below ) SEE LABEL COMMENTS DAILY XX ; Start 04/18/17 at 09:00; Stop 04/18/17 at 10:21; Status DC Non-Formulary Medication ( See Comment Field Below ) SEE LABEL COMMENTS SECTION 1T@10 XX Last administered on 04/20/17 10:05; Start 04/20/17 at 10:00; Stop 04/20/17 at 23:59; Status DC Non-Formulary Medication ( See Comment Field Below ) offer until accepted. 1T@10 ID ; Start 04/20/17 at 10:00; Stop 05/17/17 at 09:59; Status UNV Nystatin (Mycostatin Powder, Nystop) DAILY TOP Last administered on 03/30/17 22:59; Start 03/30/17 at 09:00; Stop 04/29/17 at 08:59; Status DC Perphenazine (Trilafon) 4 mg BID PO Last administered on 04/05/17 20:59; Start 03/27/17 at 09:00; Stop 04/05/17 at 23:59; Status DC Perphenazine (Trilafon) 6 mg QHS PO Last administered on 04/29/17 21:16; Start 04/11/17 at 21:00; Stop 05/11/17 at 20:59 Perphenazine (Trilafon) 8 mg QHS PO Last administered on 04/10/17 21:13; Start 04/06/17 at 21:00; Stop 04/11/17 at 09:54; Status DC Trazodone HCl (Desyrel) 50 mg QHSP PRN PO INSOMNIA; Start 03/26/17 at 17:30; Stop 05/24/17 at 17:29 Tuberculin PPD (Aplisol, Ppd) 5 units 1T@10 ID Last administered on 04/18/17 13 :23; Start 04/18/17 at 10:00; Stop 04/18/17 at 23:59; Status DC Valproic Acid (Depakene) 500 mg QAM PO Last administered on 04/12/17 09:17; Start 03/27/17 at 09:00; Stop 04/17/17 at 17:50; Status DC Valproic Acid (Depakene) 750 mg QHS PO Last administered on 04/11/17t 20:32; Start 03/26/17 at 21:00; Stop 04/17/17 at 17:50; Status DC Allergies Coded Allergies: Mirella (Verified Allergy, Unknown, 02/10/08) Idania Abrams Apr 30, 2017 14:41
[2017-04-30 18:28] VITALS: BP 132/67
[2017-04-30] MEDS: LATANOPROST 0.005% OPHTH SOLN 2.5 ML OU SCH (21:00)
[2017-04-30] MEDS: PERPHENAZINE 2 MG TAB PO SCH (21:37)
[2017-05-01 06:37] VITALS: BP 111/62
[2017-05-01] MEDS: FLUoxetine 10 MG CAP PO SCH (08:40)
[2017-05-01] MEDS: CHLORHEXIDINE GLUCONATE 0.12 % 15ML UDC (PERIDEX ORAL RINSE) MT SCH ×3 (08:41→20:05)
[2017-05-01] MEDS: ACETAMINOPHEN TAB 650MG DOSE (2X325MG) PO PRN (13:10)
--- NOTE | 2017-05-01 15:42 | MHIPNPDOC ---
[facility] Progress Note Progress Note DATE OF SERVICE: 05/01/17 HISTORY:day 33. Still [place] bed space at [place] [facility] [place] [facility] [place] admitted with paranoid delusions. VITAL SIGNS: See below. NEW TEST RESULTS: Iron level WNL at 92. shared with pt. CURRENT MEDICATIONS: See below. MENTAL STATUS EXAMINATION: Patient is a 42-year old male, who is wearing street clothes, long hair, clean, fair eye contact, non-stop talking. Speech: Is hyper-verbal Language skills are good Thought processes including: paranoia, rigid thinking, everything is black or white. auditory hallucinations Thought content: somatically preoccupied.. Abstract reasoning, and computation: concrete. Description of associations: loose. Description of abnormal or psychotic thoughts: No SI or HI. paranoid of others, no trust in other people, auditory hallucinations. Judgment: limited Insight: poor. Orientation: well oriented in all spheres. Recent and remote memory: intact Attention span and concentration: fair. Fund of knowledge: impaired by psychosis. Mood: anxious. Affect: blunted. DIAGNOSES: 1. Paranoid schizophrenia, chronic 2. HTN 3. hyperlipidemia 4. Glaucoma 5. Joint pain, chronic 6. Nicotine dependence 7. Poor dentition 8. h/o Pulmonary embolis in May 2016 ASSESSMENT:no change from yesterday, basically waiting to be released either to [facility] [place] [facility] [place] It is very hard for him to wait here with no word about his community residence. No behavior challenges. MANAGEMENT PLAN: Pt will be due for Maintena injection on 05/15. pt agreed to resuming low dose Depakene tonight at 500 mg and 250 mg in am. May change his mind later and want all 750 mg at hs but we will see. Discussed plant based diet as pt is interested in this for weight control. TIME SPENT: 15 minutes. Vital Signs Vital Signs Date Time Temp Pulse Resp B/P (MAP) Pulse Ox O2 Delivery O2 Flow Rate FiO2 05/01/17 06:37 98.2 65 18 111/62 (78) 04/30/17 06:10 Room Air Laboratory Data 24H Labs Laboratory Tests 2 05/01/17 11:23: Bedside Glucose (Misc Panel) 106H Current Medications Current Medications Acetaminophen (Tylenol Tab) 650 mg Q6HP PRN PO HEADACHE or DISCOMFORT Last administered on 05/01/17t 13:10; Start 03/26/17 at 17:30; Stop 05/24/17 at 17:29 Al Hydrox/Mg Hydrox/Simethicone (Mylanta) 30 ml Q4HP PRN PO HEARTBURN/ INDIGESTION Last administered on 04/12/17 18:31; Start 03/26/17 at 17:30; Stop 04/24/17 at 11:17; Status DC Amoxicillin/ Clavulanate Potassium (Augmentin) 875 mg BID PO Last administered on 04/27/17 21:55; Start 04/19/17 at 09:00; Stop 04/27/17 at 23:59; Status DC Aripiprazole (AbiLIFY) 5 mg QHS PO Last administered on 03/26/17 21:39; Start 03/26/17 at 21:00; Stop 03/27/17 at 08:55; Status DC Aripiprazole (Abilify Maintena) 400 mg Q30D IM Last administered on 04/14/17 08:40; Start 04/14/17 at 09:00; Stop 05/14/17 at 08:59 Chlorhexidine Gluconate (Peridex Oral Rinse) 15 ml TID MT Last administered on 05/01/17 08:41; Start 03/26/17 at 21:00; Stop 05/24/17 at 20:59 Fluoxetine HCl (PROzac) 10 mg QAM PO Last administered on 05/01/17 08:40; Start 04/26/17 at 09:00; Stop 05/26/17 at 08:59 Fluoxetine HCl (PROzac) 20 mg DAILY PO Last administered on 04/25/17 09:01; Start 03/27/17 at 09:00; Stop 04/25/17 at 17:14; Status DC Home Med (Med Rec Complete!) ASDIRECTED XX ; Start 03/26/17 at 18:30; Stop at 18:30; Status DC Hydroxyzine HCl (Atarax) 25 mg Q8HP PRN PO ANXIETY Last administered on 18:16; Start 03/26/17 at 20:45; Stop 05/24/17 at 20:44 Latanoprost (Xalatan 0.005% Op Soln) 1 drop QHS OU Last administered on 20:21; Start 03/26/17 at 21:00; Stop 05/24/17 at 20:59 Lidocaine (Lidoderm Patch) 1 patch DAILY TD Last administered on 04/11/17 11: 47; Start 03/27/17 at 09:00; Stop 04/26/17 at 08:59; Status DC Lorazepam (Ativan) 1 mg Q8HP PRN PO ANXIETY; Start 03/26/17 at 20:45; Stop 04/02 at 20:44; Status Cancel Magnesium Hydroxide (Milk Of Magnesia) 30 ml DAILYPRN PRN PO CONSTIPATION Last administered on 04/18/17 19:15; Start 03/26/17 at 17:30; Stop 04/24/17 at 11:17; Status DC Magnesium Hydroxide (Milk Of Magnesia) 30 ml DAILYPRN PRN PO CONSTIPATION Last administered on 04/29/17 16:06; Start 04/26/17 at 23:15; Stop 05/26/17 at 23:14 Miscellaneous (Unresolved Clarification Entry) SEE LABEL COMMENTS UNRESOLVED XX ; Start 04/29/17 at 00:01; Stop 04/30/17 at 14:04; Status DC Miscellaneous (Unresolved Clarification Entry) SEE LABEL COMMENTS UNRESOLVED XX ; Start 04/30/17 at 00:01; Stop 05/30/17 at 00:00 Miscellaneous (Unresolved Clarification Entry) SEE LABEL COMMENTS UNRESOLVED XX ; Start 04/26/17 at 00:01; Stop 04/26/17 at 10:46; Status DC Nicotine (Nicorette) 4 mg Q6HP PRN PO NICOTINE WITHDRAWAL Last administered on 04/20/17 13:51; Start 03/30/17 at 20:45; Stop 04/25/17 at 13:08; Status DC Non-Formulary Medication ( See Comment Field Below ) REMOVE LIDODERM PATCH DAILY@21 XX Last administered on 03/28/17 21:19; Start 03/27/17 at 21:00; Stop 04/26/17 at 10:48; Status DC Non-Formulary Medication ( See Comment Field Below ) SEE LABEL COMMENTS DAILY XX ; Start 04/18/17 at 09:00; Stop 04/18/17 at 10:21; Status DC Non-Formulary Medication ( See Comment Field Below ) SEE LABEL COMMENTS SECTION 1T@10 XX Last administered on 04/20/17 10:05; Start 04/20/17 at 10:00; Stop 04/20/17 at 23:59; Status DC Non-Formulary Medication ( See Comment Field Below ) offer until accepted. 1T@10 ID ; Start 04/20/17 at 10:00; Stop 05/17/17 at 09:59; Status UNV Nystatin (Mycostatin Powder, Nystop) DAILY TOP Last administered on 03/30/17 22:59; Start 03/30/17 at 09:00; Stop 04/29/17 at 08:59; Status DC Perphenazine (Trilafon) 4 mg BID PO Last administered on 04/05/17 20:59; Start 03/27/17 at 09:00; Stop 04/05/17 at 23:59; Status DC Perphenazine (Trilafon) 6 mg QHS PO Last administered on 04/30/17 21:37; Start 04/11/17 at 21:00; Stop 05/11/17 at 20:59 Perphenazine (Trilafon) 8 mg QHS PO Last administered on 04/10/17 21:13; Start 04/06/17 at 21:00; Stop 04/11/17 at 09:54; Status DC Trazodone HCl (Desyrel) 50 mg QHSP PRN PO INSOMNIA; Start 03/26/17 at 17:30; Stop 05/24/17 at 17:29 Tuberculin PPD (Aplisol, Ppd) 5 units 1T@10 ID Last administered on 04/18/17 13 :23; Start 04/18/17 at 10:00; Stop 04/18/17 at 23:59; Status DC Valproic Acid (Depakene) 500 mg QAM PO Last administered on 04/12/17 09:17; Start 03/27/17 at 09:00; Stop 04/17/17 at 17:50; Status DC Valproic Acid (Depakene) 750 mg QHS PO Last administered on 04/11/17 20:32; Start 03/26/17 at 21:00; Stop 04/17/17 at 17:50; Status DC Allergies Coded Allergies: Pecan (Verified Allergy, Unknown, 02/10/08) Idania Abrams May 01, 2017 15:42
[2017-05-01 18:17] VITALS: BP 133/79
[2017-05-01] MEDS: PERPHENAZINE 2 MG TAB PO SCH (20:05)
[2017-05-01] MEDS: LATANOPROST 0.005% OPHTH SOLN 2.5 ML OU SCH (20:05)
[2017-05-01] MEDS: VALPROIC ACID 250 MG CAP PO SCH (20:05)
[2017-05-01] MEDS: MOM 30ML SUSPENSION UDC PO PRN (22:12)
[2017-05-01] MEDS ORDERED: ANALGESIC BALM CRM 120 GM TOP ONE ×2 (22:45)
[2017-05-02 06:54] VITALS: BP 98/53
[2017-05-02] MEDS: CHLORHEXIDINE GLUCONATE 0.12 % 15ML UDC (PERIDEX ORAL RINSE) MT SCH ×3 (09:03→20:32)
[2017-05-02] MEDS: FLUoxetine 10 MG CAP PO SCH (09:03)
[2017-05-02] MEDS: VALPROIC ACID 250 MG CAP PO SCH ×2 (09:03→20:32)
--- NOTE | 2017-05-02 15:35 | MHIPNPDOC ---
[facility] Progress Note Progress Note DATE OF SERVICE: 05/02/17 HISTORY: day 34 of admission, exacerbation of paranoia and suspicion toward community residence staff. VITAL SIGNS: See below. NEW TEST RESULTS: na CURRENT MEDICATIONS: See below. MENTAL STATUS EXAMINATION: Patient is a 42-year old male, who is wearing street clothes and sneaker, hair is long and unruly, eye contact fair, cooperative. Speech: Is spontaneous Language skills are good, he repeats the last work you say. Thought processes including: paranoia towards staff and peers, irrational conclusions. Thought content: diet, physical symptoms and complaints.. Abstract reasoning, and computation: concrete. Description of associations: loose Description of abnormal or psychotic thoughts: has auditory hallucinations, controls his response to them well, states he will commit suicide if he has to return to [facility]. Judgment: limited Insight: limited Orientation: well oriented in all spheres. Recent and remote memory: intact Attention span and concentration: fair Fund of knowledge: impaired due to paranoia Mood: euthymic. Affect: blunted DIAGNOSES: 1. Paranoid schizophrenia, chronic 2. HTN 3. hyperlipidemia 4. Glaucoma 5. Joint pain, chronic 6. Nicotine dependence 7. Poor dentition 8. h/o Pulmonary embolis in May 2016 ASSESSMENT:pt is attending programming and is visible about the unit. Brings meal trays from entrance to distribution area. Pleasant toward others. Agreed to take Depakote yesterday which was restarted at a lower dose for him. Awaiting discharge to [facility] in [place]. c/o tooth ache late in shift and wanted ibuprofen. deferred to attending as it is out of pts scope of practice for this med. Some daytime sleeping but not as much as earlier in the week. Sleeping satisfactorily at bedtime. MANAGEMENT PLAN: pt denies thoughts of harm to self or others, wants to get outside and enjoy the weather. continue meds and monitor improvement with depakote. Order depakote level for Saturday. Pt to have TLS discharge meeting Saturday and discharge on Saturday. TIME SPENT: 15 minutes. Vital Signs Vital Signs Date Time Temp Pulse Resp B/P (MAP) Pulse Ox O2 Delivery O2 Flow Rate FiO2 05/02/17 06:54 98.2 80 16 98/53 (68) 04/30/17 06:10 Room Air Current Medications Current Medications Acetaminophen (Tylenol Tab) 650 mg Q6HP PRN PO HEADACHE or DISCOMFORT Last administered on 05/01/17 13:10; Start 03/26/17 at 17:30; Stop 05/24/17 at 17:29 Al Hydrox/Mg Hydrox/Simethicone (Mylanta) 30 ml Q4HP PRN PO HEARTBURN/ INDIGESTION Last administered on 04/12/17 18:31; Start 03/26/17 at 17:30; Stop 04/24/17 at 11:17; Status DC Amoxicillin/ Clavulanate Potassium (Augmentin) 875 mg BID PO Last administered on 04/27/17 21:55; Start 04/19/17 at 09:00; Stop 04/27/17 at 23:59; Status DC Aripiprazole (AbiLIFY) 5 mg QHS PO Last administered on 03/26/17 21:39; Start 03/26/17 at 21:00; Stop 03/27/17 at 08:55; Status DC Aripiprazole (Abilify Maintena) 400 mg Q30D IM Last administered on 04/14/17 08:40; Start 04/14/17 at 09:00; Stop 05/14/17 at 08:59 Chlorhexidine Gluconate (Peridex Oral Rinse) 15 ml TID MT Last administered on 05/02/17 09:03; Start 03/26/17 at 21:00; Stop 05/24/17 at 20:59 Fluoxetine HCl (PROzac) 10 mg QAM PO Last administered on 05/02/17 09:03; Start 04/26/17 at 09:00; Stop 05/26/17 at 08:59 Fluoxetine HCl (PROzac) 20 mg DAILY PO Last administered on 04/25/17 09:01; Start 03/27/17 at 09:00; Stop 04/25/17 at 17:14; Status DC Home Med (Med Rec Complete!) ASDIRECTED XX ; Start 03/26/17 at 18:30; Stop at 18:30; Status DC Hydroxyzine HCl (Atarax) 25 mg Q8HP PRN PO ANXIETY Last administered on 18:16; Start 03/26/17 at 20:45; Stop 05/24/17 at 20:44 Latanoprost (Xalatan 0.005% Op Soln) 1 drop QHS OU Last administered on 20:05; Start 03/26/17 at 21:00; Stop 05/24/17 at 20:59 Lidocaine (Lidoderm Patch) 1 patch DAILY TD Last administered on 04/11/17 11: 47; Start 03/27/17 at 09:00; Stop 04/26/17 at 08:59; Status DC Lorazepam (Ativan) 1 mg Q8HP PRN PO ANXIETY; Start 03/26/17 at 20:45; Stop 04/02 at 20:44; Status Cancel Magnesium Hydroxide (Milk Of Magnesia) 30 ml DAILYPRN PRN PO CONSTIPATION Last administered on 04/18/17 19:15; Start 03/26/17 at 17:30; Stop 04/24/17 at 11:17; Status DC Magnesium Hydroxide (Milk Of Magnesia) 30 ml DAILYPRN PRN PO CONSTIPATION Last administered on 05/01/17 22:12; Start 04/26/17 at 23:15; Stop 05/26/17 at 23:14 Miscellaneous (Unresolved Clarification Entry) SEE LABEL COMMENTS UNRESOLVED XX ; Start 04/29/17 at 00:01; Stop 04/30/17 at 14:04; Status DC Miscellaneous (Unresolved Clarification Entry) SEE LABEL COMMENTS UNRESOLVED XX ; Start 04/30/17 at 00:01; Stop 05/30/17 at 00:00 Miscellaneous (Unresolved Clarification Entry) SEE LABEL COMMENTS UNRESOLVED XX ; Start 04/26/17 at 00:01; Stop 04/26/17 at 10:46; Status DC Nicotine (Nicorette) 4 mg Q6HP PRN PO NICOTINE WITHDRAWAL Last administered on 04/20/17 13:51; Start 03/30/17 at 20:45; Stop 04/25/17 at 13:08; Status DC Non-Formulary Medication ( See Comment Field Below ) REMOVE LIDODERM PATCH DAILY@21 XX Last administered on 03/28/17 21:19; Start 03/27/17 at 21:00; Stop 04/26/17 at 10:48; Status DC Non-Formulary Medication ( See Comment Field Below ) SEE LABEL COMMENTS DAILY XX ; Start 04/18/17 at 09:00; Stop 04/18/17 at 10:21; Status DC Non-Formulary Medication ( See Comment Field Below ) SEE LABEL COMMENTS SECTION 1T@10 XX Last administered on 04/20/17 10:05; Start 04/20/17 at 10:00; Stop 04/20/17 at 23:59; Status DC Non-Formulary Medication ( See Comment Field Below ) offer until accepted. 1T@10 ID ; Start 04/20/17 at 10:00; Stop 05/17/17 at 09:59; Status UNV Nystatin (Mycostatin Powder, Nystop) DAILY TOP Last administered on 03/30/17 22:59; Start 03/30/17 at 09:00; Stop 04/29/17 at 08:59; Status DC Perphenazine (Trilafon) 4 mg BID PO Last administered on 04/05/17 20:59; Start 03/27/17 at 09:00; Stop 04/05/17 at 23:59; Status DC Perphenazine (Trilafon) 6 mg QHS PO Last administered on 05/01/17 20:05; Start 04/11/17 at 21:00; Stop 05/11/17 at 20:59 Perphenazine (Trilafon) 8 mg QHS PO Last administered on 04/10/17 21:13; Start 04/06/17 at 21:00; Stop 04/11/17 at 09:54; Status DC Trazodone HCl (Desyrel) 50 mg QHSP PRN PO INSOMNIA; Start 03/26/17 at 17:30; Stop 05/24/17 at 17:29 Tuberculin PPD (Aplisol, Ppd) 5 units 1T@10 ID Last administered on 04/18/17 13 :23; Start 04/18/17 at 10:00; Stop 04/18/17 at 23:59; Status DC Valproic Acid (Depakene) 250 mg QAM PO Last administered on 05/02/17 09:03; Start 05/02/17 at 09:00; Stop 06/01/17 at 08:59 Valproic Acid (Depakene) 500 mg QAM PO Last administered on 04/12/17 09:17; Start 03/27/17 at 09:00; Stop 04/17/17 at 17:50; Status DC Valproic Acid (Depakene) 500 mg QHS PO Last administered on 05/01/17 20:05; Start 05/01/17 at 21:00; Stop 05/31/17 at 20:59 Valproic Acid (Depakene) 750 mg QHS PO Last administered on 04/11/17 20:32; Start 03/26/17 at 21:00; Stop 04/17/17 at 17:50; Status DC Allergies Coded Allergies: Mirella (Verified Allergy, Unknown, 02/10/08) Idania Abrams May 02, 2017 15:35
[2017-05-02] MEDS: IBUPROFEN 400 MG TAB PO PRN (15:41)
[2017-05-02 18:00] VITALS: BP 110/57
[2017-05-02] MEDS: PERPHENAZINE 2 MG TAB PO SCH (20:31)
[2017-05-02] MEDS: LATANOPROST 0.005% OPHTH SOLN 2.5 ML OU SCH (20:32)
[2017-05-03 06:48] VITALS: BP 117/57
[2017-05-03] MEDS: VALPROIC ACID 250 MG CAP PO SCH ×2 (09:00→21:34)
[2017-05-03] MEDS: FLUoxetine 10 MG CAP PO SCH (09:00)
[2017-05-03] MEDS: CHLORHEXIDINE GLUCONATE 0.12 % 15ML UDC (PERIDEX ORAL RINSE) MT SCH ×3 (09:00→21:35)
--- NOTE | 2017-05-03 12:25 | MHIPNPDOC ---
[facility] Progress Note Progress Note DATE OF SERVICE: 05/03/17 HISTORY: day 35, pt admitted with paranoid delusions VITAL SIGNS: See below. NEW TEST RESULTS: na CURRENT MEDICATIONS: See below. MENTAL STATUS EXAMINATION: Patient is a 42-year old male, who is dis-sheveled in appearance, has long hair- uncombed, fair eye contact, pleasant. Speech: Is spontaneous, hyper verbal Language skills are intact. Thought processes including: loss associations, tangential, concrete, circumstantial Thought content: pt is looking for any sort of medical condition to explain his mood imbalance, unrealistic expectations. Abstract reasoning, and computation: concrete. Description of associations: loose. Description of abnormal or psychotic thoughts: "I think if I take a daily Aspirin everyday I will feel better. I have an accumulation of cholesterol in my arteries". daily auditory hallucinations. Judgment: limited Insight: poor. Orientation: well oriented in all spheres. Recent and remote memory: intact Attention span and concentration: limited Fund of knowledge: impaired Mood: dysphoric. Affect: blunted. DIAGNOSES: 1. Paranoid schizophrenia, chronic 2. HTN 3. hyperlipidemia 4. Glaucoma 5. Joint pain, chronic 6. Nicotine dependence 7. Poor dentition 8. h/o Pulmonary embolis in May 2016 ASSESSMENT:pt is under better emotional control since resume Depakote. He still talks far too much but is less pressured. His sleep wake cycle is restored. He is still somatic but is less irate and impulsive. He agrees the depakote is helpful and states he feels better. He felt 1250 mg was too much of the Depakote. Pt is aware he will be leaving Saturday next week. He is worried about his transition and is concerned that [facility] staff in [facility] may be "in cahoots with staff in [place]". Paranoia is ever present with him. Attending programming. Addresses hygiene needs well. MANAGEMENT PLAN: no medication changes planned now that pt is on Depakote. He has a better chance of success at community living. the next step would be to convince him to resume Invega Sustenna over the Abilify Maintena as he seems to get manic on the maintena.. TIME SPENT: 15 minutes. Vital Signs Vital Signs Date Time Temp Pulse Resp B/P (MAP) Pulse Ox O2 Delivery O2 Flow Rate FiO2 05/03/17 06:48 98.0 86 18 117/57 (77) 04/30/17 06:10 Room Air Current Medications Current Medications Acetaminophen (Tylenol Tab) 650 mg Q6HP PRN PO HEADACHE or DISCOMFORT Last administered on 05/01/17 13:10; Start 03/26/17 at 17:30; Stop 05/24/17 at 17:29 Al Hydrox/Mg Hydrox/Simethicone (Mylanta) 30 ml Q4HP PRN PO HEARTBURN/ INDIGESTION Last administered on 04/12/17 18:31; Start 03/26/17 at 17:30; Stop 04/24/17 at 11:17; Status DC Amoxicillin/ Clavulanate Potassium (Augmentin) 875 mg BID PO Last administered on 04/27/17 21:55; Start 04/19/17 at 09:00; Stop 04/27/17 at 23:59; Status DC Aripiprazole (AbiLIFY) 5 mg QHS PO Last administered on 03/26/17 21:39; Start 03/26/17 at 21:00; Stop 03/27/17 at 08:55; Status DC Aripiprazole (Abilify Maintena) 400 mg Q30D IM Last administered on 04/14/17 08:40; Start 04/14/17 at 09:00; Stop 05/14/17 at 08:59 Chlorhexidine Gluconate (Peridex Oral Rinse) 15 ml TID MT Last administered on 05/03/17 09:00; Start 03/26/17 at 21:00; Stop 05/24/17 at 20:59 Fluoxetine HCl (PROzac) 10 mg QAM PO Last administered on 05/03/17 09:00; Start 04/26/17 at 09:00; Stop 05/26/17 at 08:59 Fluoxetine HCl (PROzac) 20 mg DAILY PO Last administered on 04/25/17 09:01; Start 03/27/17 at 09:00; Stop 04/25/17 at 17:14; Status DC Home Med (Med Rec Complete!) ASDIRECTED XX ; Start 03/26/17 at 18:30; Stop at 18:30; Status DC Hydroxyzine HCl (Atarax) 25 mg Q8HP PRN PO ANXIETY Last administered on 18:16; Start 03/26/17 at 20:45; Stop 05/24/17 at 20:44 Ibuprofen (Advil) 400 mg Q6HP PRN PO PAIN Last administered on 05/02/17 15:41 ; Start 05/02/17 at 15:45; Stop 06/01/17 at 15:44 Latanoprost (Xalatan 0.005% Op Soln) 1 drop QHS OU Last administered on 20:32; Start 03/26/17 at 21:00; Stop 05/24/17 at 20:59 Lidocaine (Lidoderm Patch) 1 patch DAILY TD Last administered on 04/11/17 11: 47; Start 03/27/17 at 09:00; Stop 04/26/17 at 08:59; Status DC Lorazepam (Ativan) 1 mg Q8HP PRN PO ANXIETY; Start 03/26/17 at 20:45; Stop 04/02 at 20:44; Status Cancel Magnesium Hydroxide (Milk Of Magnesia) 30 ml DAILYPRN PRN PO CONSTIPATION Last administered on 04/18/17 19:15; Start 03/26/17 at 17:30; Stop 04/24/17 at 11:17; Status DC Magnesium Hydroxide (Milk Of Magnesia) 30 ml DAILYPRN PRN PO CONSTIPATION Last administered on 05/01/17 22:12; Start 04/26/17 at 23:15; Stop 05/26/17 at 23:14 Miscellaneous (Unresolved Clarification Entry) SEE LABEL COMMENTS UNRESOLVED XX ; Start 04/29/17 at 00:01; Stop 04/30/17 at 14:04; Status DC Miscellaneous (Unresolved Clarification Entry) SEE LABEL COMMENTS UNRESOLVED XX ; Start 04/30/17 at 00:01; Stop 05/03/17 at 09:08; Status DC Miscellaneous (Unresolved Clarification Entry) SEE LABEL COMMENTS UNRESOLVED XX ; Start 04/26/17 at 00:01; Stop 04/26/17 at 10:46; Status DC Nicotine (Nicorette) 4 mg Q6HP PRN PO NICOTINE WITHDRAWAL Last administered on 04/20/17 13:51; Start 03/30/17 at 20:45; Stop 04/25/17 at 13:08; Status DC Non-Formulary Medication ( See Comment Field Below ) REMOVE LIDODERM PATCH DAILY@21 XX Last administered on 03/28/17 21:19; Start 03/27/17 at 21:00; Stop 04/26/17 at 10:48; Status DC Non-Formulary Medication ( See Comment Field Below ) SEE LABEL COMMENTS DAILY XX ; Start 04/18/17 at 09:00; Stop 04/18/17 at 10:21; Status DC Non-Formulary Medication ( See Comment Field Below ) SEE LABEL COMMENTS SECTION 1T@10 XX Last administered on 04/20/17 10:05; Start 04/20/17 at 10:00; Stop 04/20/17 at 23:59; Status DC Non-Formulary Medication ( See Comment Field Below ) offer until accepted. 1T@10 ID ; Start 04/20/17 at 10:00; Stop 05/17/17 at 09:59; Status UNV Nystatin (Mycostatin Powder, Nystop) DAILY TOP Last administered on 03/30/17 22:59; Start 03/30/17 at 09:00; Stop 04/29/17 at 08:59; Status DC Perphenazine (Trilafon) 4 mg BID PO Last administered on 04/05/17 20:59; Start 03/27/17 at 09:00; Stop 04/05/17 at 23:59; Status DC Perphenazine (Trilafon) 6 mg QHS PO Last administered on 05/02/17 20:31; Start 04/11/17 at 21:00; Stop 05/11/17 at 20:59 Perphenazine (Trilafon) 8 mg QHS PO Last administered on 04/10/17 21:13; Start 04/06/17 at 21:00; Stop 04/11/17 at 09:54; Status DC Trazodone HCl (Desyrel) 50 mg QHSP PRN PO INSOMNIA; Start 03/26/17 at 17:30; Stop 05/24/17 at 17:29 Tuberculin PPD (Aplisol, Ppd) 5 units 1T@10 ID Last administered on 04/18/17 13 :23; Start 04/18/17 at 10:00; Stop 04/18/17 at 23:59; Status DC Valproic Acid (Depakene) 250 mg QAM PO Last administered on 05/03/17 09:00; Start 05/02/17 at 09:00; Stop 06/01/17 at 08:59; Status Future hold Valproic Acid (Depakene) 500 mg QAM PO Last administered on 04/12/17 09:17; Start 03/27/17 at 09:00; Stop 04/17/17 at 17:50; Status DC Valproic Acid (Depakene) 500 mg QHS PO Last administered on 05/02/17 20:32; Start 05/01/17 at 21:00; Stop 05/31/17 at 20:59 Valproic Acid (Depakene) 750 mg QHS PO Last administered on 04/11/17 20:32; Start 03/26/17 at 21:00; Stop 04/17/17 at 17:50; Status DC Allergies Coded Allergies: Mirella (Verified Allergy, Unknown, 02/10/08) Idania Abrams May 03, 2017 12:25
[2017-05-03 18:00] VITALS: BP 120/70
[2017-05-03] MEDS: PERPHENAZINE 2 MG TAB PO SCH (21:34)
[2017-05-03] MEDS: LATANOPROST 0.005% OPHTH SOLN 2.5 ML OU SCH (21:35)
[2017-05-04 06:42] VITALS: BP 121/77
[2017-05-04] MEDS: CHLORHEXIDINE GLUCONATE 0.12 % 15ML UDC (PERIDEX ORAL RINSE) MT SCH ×3 (09:40→20:04)
[2017-05-04] MEDS: FLUoxetine 10 MG CAP PO SCH (09:40)
[2017-05-04] MEDS: VALPROIC ACID 250 MG CAP PO SCH ×2 (09:40→20:04)
[2017-05-04] MEDS: MOM 30ML SUSPENSION UDC PO PRN (11:47)
[2017-05-04] MEDS: IBUPROFEN 400 MG TAB PO PRN (13:25)
[2017-05-04] MEDS: hydrOXYzine 25 MG TAB PO PRN (13:34)
[2017-05-04 18:17] VITALS: BP 135/62
[2017-05-04] MEDS: LATANOPROST 0.005% OPHTH SOLN 2.5 ML OU SCH (20:03)
[2017-05-04] MEDS: PERPHENAZINE 2 MG TAB PO SCH (20:04)
[2017-05-05 06:18] VITALS: BP 115/54
[2017-05-05] MEDS: FLUoxetine 10 MG CAP PO SCH (09:26)
[2017-05-05] MEDS: CHLORHEXIDINE GLUCONATE 0.12 % 15ML UDC (PERIDEX ORAL RINSE) MT SCH ×3 (09:26→22:27)
[2017-05-05 18:00] VITALS: BP 129/64
[2017-05-05] MEDS: IBUPROFEN 400 MG TAB PO PRN (18:12)
[2017-05-05] MEDS: PERPHENAZINE 2 MG TAB PO SCH (22:27)
[2017-05-05] MEDS: LATANOPROST 0.005% OPHTH SOLN 2.5 ML OU SCH (22:27)
[2017-05-05] MEDS: VALPROIC ACID 250 MG CAP PO SCH (22:27)
[2017-05-06] MEDS: hydrOXYzine 25 MG TAB PO PRN (01:56)
[2017-05-06] MEDS ORDERED: hydrOXYzine 50 MG TAB PO ONE (03:00)
[2017-05-06 07:15] VITALS: BP 119/60
[2017-05-06] MEDS: FLUoxetine 10 MG CAP PO SCH (10:57)
[2017-05-06] MEDS: CHLORHEXIDINE GLUCONATE 0.12 % 15ML UDC (PERIDEX ORAL RINSE) MT SCH ×3 (10:58→20:59)
[2017-05-06] MEDS: VALPROIC ACID 250 MG CAP PO SCH ×2 (10:58→20:59)
[2017-05-06] MEDS: IBUPROFEN 400 MG TAB PO PRN (13:07)
--- NOTE | 2017-05-06 15:06 | MHIPNPDOC ---
[facility] Progress Note Progress Note DATE OF SERVICE: 05/06/17 HISTORY: day 38 of admission. Re-admitted with paranoid delusions after returning to residence. VITAL SIGNS: See below. NEW TEST RESULTS: depakote level 20.5 CURRENT MEDICATIONS: See below. MENTAL STATUS EXAMINATION: Patient is a 42-year old male, who is wearing street clothes, appears dissheveled, appears serious and says "today will be a long day". Speech: Is spontaneous Language skills are good Thought processes including: self focused, some suspicions and fears but not overly paranoid. Thought content: discharge to [facility]. Abstract reasoning, and computation: concrete. Description of associations: loose. Description of abnormal or psychotic thoughts: "people are out to do me harm". denies si and hi. reports auditory hallucinations in some form most everyday. Judgment: limited Insight: poor. Orientation: well oriented Recent and remote memory: intact Attention span and concentration: varies Fund of knowledge: impaired due to suspicious nature. Mood: euthymic. Affect: congruent. DIAGNOSES: 1. Paranoid schizophrenia, chronic 2. HTN 3. hyperlipidemia 4. Glaucoma 5. Joint pain, chronic 6. Nicotine dependence 7. Poor dentition 8. h/o Pulmonary embolis in May 2016 ASSESSMENT:Pt is anticipating discharge tomorrow. He had an hour long meeting with TLS today. We were asked to phone in meds. I phoned in his sleeping medication for 05/07 and will order all meds electronically tomorrow. pt is in fair spirits. Has usual worries and concerns as he fears change and doubts people. Pt did well over the weekend. Taking meds. No behavior challenges. Will encourage increase in Depakote as it is subtherapeutic but he will likely not agree and take what he wants to, which is his current dose. Pt denies suicidal and homicidal ideation. MANAGEMENT PLAN: Support rendered to Brandt for agreeing to go back on Abilify maintena as part of his AOT. also praised for resuming depakote, albeit a sub- therapeutic dose. Hopefully he will agree to more later. He insists lamictal or latuda would be better but this conventional underwriter does not agree with that at all. He needs help with impulse control. he gets angry easily when staff or peers don't do or say something he disagrees with. he is very rigid but is unlikely to change. TIME SPENT: 15 minutes. Vital Signs Vital Signs Date Time Temp Pulse Resp B/P (MAP) Pulse Ox O2 Delivery O2 Flow Rate FiO2 05/06/17 07:15 98.0 86 18 119/60 (79) 04/30/17 06:10 Room Air Laboratory Data 24H Labs Laboratory Tests 2 05/05/17 19:26: Valproic Acid (Depakene) Level 20.5L Current Medications Current Medications Acetaminophen (Tylenol Tab) 650 mg Q6HP PRN PO HEADACHE or DISCOMFORT Last administered on 05/01/17 13:10; Start 03/26/17 at 17:30; Stop 05/24/17 at 17:29 Al Hydrox/Mg Hydrox/Simethicone (Mylanta) 30 ml Q4HP PRN PO HEARTBURN/ INDIGESTION Last administered on 04/12/17 18:31; Start 03/26/17 at 17:30; Stop 04/24/17 at 11:17; Status DC Amoxicillin/ Clavulanate Potassium (Augmentin) 875 mg BID PO Last administered on 04/27/17 21:55; Start 04/19/17 at 09:00; Stop 04/27/17 at 23:59; Status DC Aripiprazole (AbiLIFY) 5 mg QHS PO Last administered on 03/26/17 21:39; Start 03/26/17 at 21:00; Stop 03/27/17 at 08:55; Status DC Aripiprazole (Abilify Maintena) 400 mg Q30D IM Last administered on 04/14/17 08:40; Start 04/14/17 at 09:00; Stop 05/14/17 at 08:59 Chlorhexidine Gluconate (Peridex Oral Rinse) 15 ml TID MT Last administered on 05/06/17 10:58; Start 03/26/17 at 21:00; Stop 05/24/17 at 20:59 Fluoxetine HCl (PROzac) 10 mg QAM PO Last administered on 05/06/17 10:57; Start 04/26/17 at 09:00; Stop 05/26/17 at 08:59 Fluoxetine HCl (PROzac) 20 mg DAILY PO Last administered on 04/25/17 09:01; Start 03/27/17 at 09:00; Stop 04/25/17 at 17:14; Status DC Home Med (Med Rec Complete!) ASDIRECTED XX ; Start 03/26/17 at 18:30; Stop at 18:30; Status DC Hydroxyzine HCl (Atarax) 25 mg Q8HP PRN PO ANXIETY Last administered on 01:56; Start 03/26/17 at 20:45; Stop 05/24/17 at 20:44 Ibuprofen (Advil) 400 mg Q6HP PRN PO PAIN Last administered on 05/06/17 13:07 ; Start 05/02/17 at 15:45; Stop 06/01/17 at 15:44 Latanoprost (Xalatan 0.005% Op Soln) 1 drop QHS OU Last administered on 22:27; Start 03/26/17 at 21:00; Stop 05/24/17 at 20:59 Lidocaine (Lidoderm Patch) 1 patch DAILY TD Last administered on 04/11/17 11: 47; Start 03/27/17 at 09:00; Stop 04/26/17 at 08:59; Status DC Lorazepam (Ativan) 1 mg Q8HP PRN PO ANXIETY; Start 03/26/17 at 20:45; Stop 04/02 at 20:44; Status Cancel Magnesium Hydroxide (Milk Of Magnesia) 30 ml DAILYPRN PRN PO CONSTIPATION Last administered on 04/18/17 19:15; Start 03/26/17 at 17:30; Stop 04/24/17 at 11:17; Status DC Magnesium Hydroxide (Milk Of Magnesia) 30 ml DAILYPRN PRN PO CONSTIPATION Last administered on 05/04/17 11:47; Start 04/26/17 at 23:15; Stop 05/26/17 at 23:14 Miscellaneous (Unresolved Clarification Entry) SEE LABEL COMMENTS UNRESOLVED XX ; Start 04/29/17 at 00:01; Stop 04/30/17 at 14:04; Status DC Miscellaneous (Unresolved Clarification Entry) SEE LABEL COMMENTS UNRESOLVED XX ; Start 04/30/17 at 00:01; Stop 05/03/17 at 09:08; Status DC Miscellaneous (Unresolved Clarification Entry) SEE LABEL COMMENTS UNRESOLVED XX ; Start 04/26/17 at 00:01; Stop 04/26/17 at 10:46; Status DC Nicotine (Nicorette) 4 mg Q6HP PRN PO NICOTINE WITHDRAWAL Last administered on 04/20/17 13:51; Start 03/30/17 at 20:45; Stop 04/25/17 at 13:08; Status DC Non-Formulary Medication ( See Comment Field Below ) REMOVE LIDODERM PATCH DAILY@21 XX Last administered on 03/28/17 21:19; Start 03/27/17 at 21:00; Stop 04/26/17 at 10:48; Status DC Non-Formulary Medication ( See Comment Field Below ) SEE LABEL COMMENTS DAILY XX ; Start 04/18/17 at 09:00; Stop 04/18/17 at 10:21; Status DC Non-Formulary Medication ( See Comment Field Below ) SEE LABEL COMMENTS SECTION 1T@10 XX Last administered on 04/20/17 10:05; Start 04/20/17 at 10:00; Stop 04/20/17 at 23:59; Status DC Non-Formulary Medication ( See Comment Field Below ) offer until accepted. 1T@10 ID ; Start 04/20/17 at 10:00; Stop 05/17/17 at 09:59; Status UNV Nystatin (Mycostatin Powder, Nystop) DAILY TOP Last administered on 03/30/17 22:59; Start 03/30/17 at 09:00; Stop 04/29/17 at 08:59; Status DC Perphenazine (Trilafon) 4 mg BID PO Last administered on 04/05/17 20:59; Start 03/27/17 at 09:00; Stop 04/05/17 at 23:59; Status DC Perphenazine (Trilafon) 6 mg QHS PO Last administered on 05/05/17 22:27; Start 04/11/17 at 21:00; Stop 05/11/17 at 20:59 Perphenazine (Trilafon) 8 mg QHS PO Last administered on 04/10/17 21:13; Start 04/06/17 at 21:00; Stop 04/11/17 at 09:54; Status DC Trazodone HCl (Desyrel) 50 mg QHSP PRN PO INSOMNIA; Start 03/26/17 at 17:30; Stop 05/24/17 at 17:29 Tuberculin PPD (Aplisol, Ppd) 5 units 1T@10 ID Last administered on 04/18/17 13 :23; Start 04/18/17 at 10:00; Stop 04/18/17 at 23:59; Status DC Valproic Acid (Depakene) 250 mg QAM PO Last administered on 05/06/17 10:58; Start 05/02/17 at 09:00; Stop 06/01/17 at 08:59; Status Future hold Valproic Acid (Depakene) 500 mg QAM PO Last administered on 04/12/17 09:17; Start 03/27/17 at 09:00; Stop 04/17/17 at 17:50; Status DC Valproic Acid (Depakene) 500 mg QHS PO Last administered on 05/05/17 22:27; Start 05/01/17 at 21:00; Stop 05/31/17 at 20:59 Valproic Acid (Depakene) 750 mg QHS PO Last administered on 04/11/17 20:32; Start 03/26/17 at 21:00; Stop 04/17/17 at 17:50; Status DC Allergies Coded Allergies: Mirella (Verified Allergy, Unknown, 02/10/08) Idania Abrams May 06, 2017 15:06
[2017-05-06 18:00] VITALS: BP 133/81
[2017-05-06] MEDS: PERPHENAZINE 2 MG TAB PO SCH (20:59)
[2017-05-06] MEDS: LATANOPROST 0.005% OPHTH SOLN 2.5 ML OU SCH (20:59)
[2017-05-07 06:00] VITALS: BP 109/54
[2017-05-07] MEDS: FLUoxetine 10 MG CAP PO SCH (09:51)
[2017-05-07] MEDS: CHLORHEXIDINE GLUCONATE 0.12 % 15ML UDC (PERIDEX ORAL RINSE) MT SCH ×3 (09:52→20:09)
[2017-05-07] MEDS: VALPROIC ACID 250 MG CAP PO SCH ×2 (09:52→20:09)
--- NOTE | 2017-05-07 15:22 | MHIPNPDOC ---
[facility] Progress Note Progress Note DATE OF SERVICE: 05/07/17 HISTORY: day 39. VITAL SIGNS: See below. NEW TEST RESULTS: Depakote level: 20.5 CURRENT MEDICATIONS: See below. MENTAL STATUS EXAMINATION: Patient is a 42-year old male, who is dressed in jeans and a shirt and sneakers , hair is long and tied in a pony tail, eye contact is poor. Speech: Is spontaneous and clear, whiney at times. Language skills are intact Thought processes including: paranoid suspicions about his wellbeing and about side effects to his medications. Thought content: self focused. Abstract reasoning, and computation: concrete Description of associations: loose. Description of abnormal or psychotic thoughts: auditory hallucinations but he will not discuss the content, very paranoid to the point of poor functioning and poor decision making. Judgment: limited Insight: [very limited Orientation: well oriented in all spheres. Recent and remote memory: impaired due to paranoia and schizophrenia. Attention span and concentration: adequate Fund of knowledge: limited and one sided. Mood: dysphoric Affect: congruent DIAGNOSES: ASSESSMENT:pt was to have been discharged today to [facility] after a long wait. He was going to have his own room and his own kitchen. He decided not to go because he thought one of the [facility] staff people were giving him dirty looks during yesterday's meeting. Also he was upset that he had to ride in the cab alone. According to staff who know Brandt far longer than underwriter mortgage loan, he has a h/o sabotaging his discharge. This year alone he has been readmitted at least 4 times shortly after discharge. He returns with vague minor complaints about the behavior of others. He lacks the ability to get along well in society. He really needs skilled nursing treatment in a supervised setting. Brandt denies his problems are due to his mental illness, he denies having a mental illness. He is very focused on the past and errors he made years ago. He does not let go of things. He dwells on the negative. 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 He does not need to be in the hospital to have these matters looked into. All of this has been explained to Brandt but he gets angry and states, "I'm not going to listen". MANAGEMENT PLAN: pt stated he would prefer to be on Haldol decanoate and stop the Maintena. this will be initiated at the end of the month when the maintena would be due on 05/15. He asked for an increase in his trilafon and this can be provided to him. TIME SPENT: 30 minutes. Vital Signs Vital Signs Date Time Temp Pulse Resp B/P (MAP) Pulse Ox O2 Delivery O2 Flow Rate FiO2 05/07/17 06:00 97.7 66 16 109/54 (72) Current Medications Current Medications Acetaminophen (Tylenol Tab) 650 mg Q6HP PRN PO HEADACHE or DISCOMFORT Last administered on 05/01/17 13:10; Start 03/26/17 at 17:30; Stop 05/24/17 at 17:29 Al Hydrox/Mg Hydrox/Simethicone (Mylanta) 30 ml Q4HP PRN PO HEARTBURN/ INDIGESTION Last administered on 04/12/17 18:31; Start 03/26/17 at 17:30; Stop 04/24/17 at 11:17; Status DC Amoxicillin/ Clavulanate Potassium (Augmentin) 875 mg BID PO Last administered on 04/27/17 21:55; Start 04/19/17 at 09:00; Stop 04/27/17 at 23:59; Status DC Aripiprazole (AbiLIFY) 5 mg QHS PO Last administered on 03/26/17 21:39; Start 03/26/17 at 21:00; Stop 03/27/17 at 08:55; Status DC Aripiprazole (Abilify Maintena) 400 mg Q30D IM Last administered on 04/14/17 08:40; Start 04/14/17 at 09:00; Stop 05/14/17 at 08:59 Chlorhexidine Gluconate (Peridex Oral Rinse) 15 ml TID MT Last administered on 05/07/17 09:52; Start 03/26/17 at 21:00; Stop 05/24/17 at 20:59 Fluoxetine HCl (PROzac) 10 mg QAM PO Last administered on 05/07/17 09:51; Start 04/26/17 at 09:00; Stop 05/26/17 at 08:59 Fluoxetine HCl (PROzac) 20 mg DAILY PO Last administered on 04/25/17 09:01; Start 03/27/17 at 09:00; Stop 04/25/17 at 17:14; Status DC Home Med (Med Rec Complete!) ASDIRECTED XX ; Start 03/26/17 at 18:30; Stop at 18:30; Status DC Hydroxyzine HCl (Atarax) 25 mg Q8HP PRN PO ANXIETY Last administered on 01:56; Start 03/26/17 at 20:45; Stop 05/24/17 at 20:44 Ibuprofen (Advil) 400 mg Q6HP PRN PO PAIN Last administered on 05/06/17 13:07 ; Start 05/02/17 at 15:45; Stop 06/01/17 at 15:44 Latanoprost (Xalatan 0.005% Op Soln) 1 drop QHS OU Last administered on 20:59; Start 03/26/17 at 21:00; Stop 05/24/17 at 20:59 Lidocaine (Lidoderm Patch) 1 patch DAILY TD Last administered on 04/11/17 11: 47; Start 03/27/17 at 09:00; Stop 04/26/17 at 08:59; Status DC Lorazepam (Ativan) 1 mg Q8HP PRN PO ANXIETY; Start 03/26/17 at 20:45; Stop 04/02 at 20:44; Status Cancel Magnesium Hydroxide (Milk Of Magnesia) 30 ml DAILYPRN PRN PO CONSTIPATION Last administered on 04/18/17 19:15; Start 03/26/17 at 17:30; Stop 04/24/17 at 11:17; Status DC Magnesium Hydroxide (Milk Of Magnesia) 30 ml DAILYPRN PRN PO CONSTIPATION Last administered on 05/04/17 11:47; Start 04/26/17 at 23:15; Stop 05/26/17 at 23:14 Miscellaneous (Unresolved Clarification Entry) SEE LABEL COMMENTS UNRESOLVED XX ; Start 04/29/17 at 00:01; Stop 04/30/17 at 14:04; Status DC Miscellaneous (Unresolved Clarification Entry) SEE LABEL COMMENTS UNRESOLVED XX ; Start 04/30/17 at 00:01; Stop 05/03/17 at 09:08; Status DC Miscellaneous (Unresolved Clarification Entry) SEE LABEL COMMENTS UNRESOLVED XX ; Start 04/26/17 at 00:01; Stop 04/26/17 at 10:46; Status DC Nicotine (Nicorette) 4 mg Q6HP PRN PO NICOTINE WITHDRAWAL Last administered on 04/20/17 13:51; Start 03/30/17 at 20:45; Stop 04/25/17 at 13:08; Status DC Non-Formulary Medication ( See Comment Field Below ) REMOVE LIDODERM PATCH DAILY@21 XX Last administered on 03/28/17 21:19; Start 03/27/17 at 21:00; Stop 04/26/17 at 10:48; Status DC Non-Formulary Medication ( See Comment Field Below ) SEE LABEL COMMENTS DAILY XX ; Start 04/18/17 at 09:00; Stop 04/18/17 at 10:21; Status DC Non-Formulary Medication ( See Comment Field Below ) SEE LABEL COMMENTS SECTION 1T@10 XX Last administered on 04/20/17 10:05; Start 04/20/17 at 10:00; Stop 04/20/17 at 23:59; Status DC Non-Formulary Medication ( See Comment Field Below ) offer until accepted. 1T@10 ID ; Start 04/20/17 at 10:00; Stop 05/17/17 at 09:59; Status UNV Nystatin (Mycostatin Powder, Nystop) DAILY TOP Last administered on 03/30/17 22:59; Start 03/30/17 at 09:00; Stop 04/29/17 at 08:59; Status DC Perphenazine (Trilafon) 4 mg BID PO Last administered on 04/05/17 20:59; Start 03/27/17 at 09:00; Stop 04/05/17 at 23:59; Status DC Perphenazine (Trilafon) 6 mg QHS PO Last administered on 05/06/17 20:59; Start 04/11/17 at 21:00; Stop 05/11/17 at 20:59 Perphenazine (Trilafon) 8 mg QHS PO Last administered on 04/10/17 21:13; Start 04/06/17 at 21:00; Stop 04/11/17 at 09:54; Status DC Trazodone HCl (Desyrel) 50 mg QHSP PRN PO INSOMNIA; Start 03/26/17 at 17:30; Stop 05/24/17 at 17:29 Tuberculin PPD (Aplisol, Ppd) 5 units 1T@10 ID Last administered on 04/18/17 13 :23; Start 04/18/17 at 10:00; Stop 04/18/17 at 23:59; Status DC Valproic Acid (Depakene) 250 mg QAM PO Last administered on 05/07/17 09:52; Start 05/02/17 at 09:00; Stop 06/01/17 at 08:59; Status Future hold Valproic Acid (Depakene) 500 mg QAM PO Last administered on 04/12/17 09:17; Start 03/27/17 at 09:00; Stop 04/17/17 at 17:50; Status DC Valproic Acid (Depakene) 500 mg QHS PO Last administered on 05/06/17 20:59; Start 05/01/17 at 21:00; Stop 05/31/17 at 20:59 Valproic Acid (Depakene) 750 mg QHS PO Last administered on 04/11/17 20:32; Start 03/26/17 at 21:00; Stop 04/17/17 at 17:50; Status DC Allergies Coded Allergies: Mirella (Verified Allergy, Unknown, 02/10/08) Idania Abrams May 07, 2017 15:22
[2017-05-07 18:00] VITALS: BP 126/79
[2017-05-07] MEDS: IBUPROFEN 400 MG TAB PO PRN (20:09)
[2017-05-07] MEDS: PERPHENAZINE 2 MG TAB PO SCH (20:09)
[2017-05-07] MEDS: LATANOPROST 0.005% OPHTH SOLN 2.5 ML OU SCH (20:10)
[2017-05-07] MEDS: hydrOXYzine 25 MG TAB PO PRN (23:55)
[2017-05-08] MEDS ORDERED: HALOPERIDOL 5 MG TAB PO ONE
[2017-05-08 06:28] VITALS: BP 126/89
[2017-05-08] MEDS: FLUoxetine 10 MG CAP PO SCH (09:17)
[2017-05-08] MEDS: CHLORHEXIDINE GLUCONATE 0.12 % 15ML UDC (PERIDEX ORAL RINSE) MT SCH ×3 (09:18→21:55)
[2017-05-08] MEDS: VALPROIC ACID 250 MG CAP PO SCH ×2 (09:18→21:55)
[2017-05-08] MEDS: hydrOXYzine 25 MG TAB PO PRN (13:49)
--- NOTE | 2017-05-08 13:58 | MHIPNPDOC ---
[facility] Progress Note Progress Note DATE OF SERVICE: 05/08/17 HISTORY: day 40 of admission VITAL SIGNS: See below. NEW TEST RESULTS:na CURRENT MEDICATIONS: See below. MENTAL STATUS EXAMINATION: Patient is a 42-year old male, who is dressed in street clothes, hair tidy and tied back, good hygiene and fair eye contact. Speech: Is spontaneous Language skills are good Thought processes including: suspicious, paranoid, disorganized Thought content: varies from inappropriate to appropriate. Abstract reasoning, and computation: concrete. Description of associations: loose. Description of abnormal or psychotic thoughts: pt yelling in hallway that "what does it matter if I hurt their feelings. People hurt my feelings and no one cares. I got pissed on in the 8th grade". Judgment: poor Insight: poor. Orientation: well oriented in all spheres. Recent and remote memory: impaired by delusions and paranoia Attention span and concentration: poor Fund of knowledge: impaired Mood: dysphoric. Affect: congruent, agitated DIAGNOSES: . Schizophrenia, paranoid type. 2. HTN 3. hyperlipidemia 4. Glaucoma 5. Joint pain, chronic 6. Nicotine dependence 7. Poor dentition 8. h/o Pulmonary Embolis in May 2016 ASSESSMENT: pt informed clinical planner scheduler that he was willing to go to [facility]. he told her this when she went to tell him that the administrative hearing he requested is scheduled for tomorrow at 1030. He signed forms A & B which news writer also signed. Pt has been changing his mind very frequently lately about many things, most importantly discharge plans, so we will plan to hold the meeting anyway. Later pt was in the hallway asking to speak to a TLS worker from [place]. The nurse bookstore manager offered to inquire if the TLS worker (Tavares Martin ) had time to speak with Brandt, as Mr. martin was here for another patient. Mr. Martin was not able to see Brandt and Brandt volunteered that he wanted to apologize to Mr. Martin for an argument Brandt had a part in which preceded his admission here. Brandt went into group with no further comment. As the morning progressed Brandt became more and more fixated on the fact the TLS worker was here and internalized the reason the worker was here and became very upset making comments that did not make sense and were not witnessed by news writer. The general point is that Brandt was also questioning food supplies and liquids and creating an atmosphere of paranoia for himself where everything that was happening to others or had nothing to do with him where directed toward him. He was becoming more combative and agitated until he was observed by this news writer in the hallway yelling "who cares if I hurt their feelings, no one cares when my feelings are hurt". he then went on yelling about how "I was pissed on in the 8th grade". Family Health Nurse Practitioner had planned to meet with Brandt at this time but Brandt declined saying "it is not a good time". Agitation meds were ordered in case Brandt requested them. He did request Haldol last night and the on-call provider had to be contacted for a one time order. Brandt was to go to [facility] by cab yesterday but refused for reasons previously documented. MANAGEMENT PLAN: Brandt had previously indicated his desire to make med changes including changing his Abilify Maintena. Family Health Nurse Practitioner planned to meet with Brandt today for a discussion of this but then Brandt said he wanted to leave everything as it is until he after his transfer. Family Health Nurse Practitioner preferred not to resume Haldol dec due to the extensive dopamine blocking by this neuroleptic and would rather prescribe a newer SGA. Brandt also had mentioned a desire to increase the Trilafon but when asked today he stated he wanted to wait until he was transferred. TIME SPENT: 15 minutes. Vital Signs Vital Signs Date Time Temp Pulse Resp B/P (MAP) Pulse Ox O2 Delivery O2 Flow Rate FiO2 05/08/17 06:28 96.4 97 18 126/89 (101) Room Air Current Medications Current Medications Acetaminophen (Tylenol Tab) 650 mg Q6HP PRN PO HEADACHE or DISCOMFORT Last administered on 05/01/17 13:10; Start 03/26/17 at 17:30; Stop 05/24/17 at 17:29 Al Hydrox/Mg Hydrox/Simethicone (Mylanta) 30 ml Q4HP PRN PO HEARTBURN/ INDIGESTION Last administered on 04/12/17 18:31; Start 03/26/17 at 17:30; Stop 04/24/17 at 11:17; Status DC Amoxicillin/ Clavulanate Potassium (Augmentin) 875 mg BID PO Last administered on 04/27/17 21:55; Start 04/19/17 at 09:00; Stop 04/27/17 at 23:59; Status DC Aripiprazole (AbiLIFY) 5 mg QHS PO Last administered on 03/26/17 21:39; Start 03/26/17 at 21:00; Stop 03/27/17 at 08:55; Status DC Aripiprazole (Abilify Maintena) 400 mg Q30D IM Last administered on 04/14/17 08:40; Start 04/14/17 at 09:00; Stop 05/14/17 at 08:59 Chlorhexidine Gluconate (Peridex Oral Rinse) 15 ml TID MT Last administered on 05/08/17 09:18; Start 03/26/17 at 21:00; Stop 05/24/17 at 20:59 Fluoxetine HCl (PROzac) 10 mg QAM PO Last administered on 05/08/17 09:17; Start 04/26/17 at 09:00; Stop 05/26/17 at 08:59 Fluoxetine HCl (PROzac) 20 mg DAILY PO Last administered on 04/25/17 09:01; Start 03/27/17 at 09:00; Stop 04/25/17 at 17:14; Status DC Home Med (Med Rec Complete!) ASDIRECTED XX ; Start 03/26/17 at 18:30; Stop at 18:30; Status DC Hydroxyzine HCl (Atarax) 25 mg Q8HP PRN PO ANXIETY Last administered on 13:49; Start 03/26/17 at 20:45; Stop 05/24/17 at 20:44 Ibuprofen (Advil) 400 mg Q6HP PRN PO PAIN Last administered on 05/07/17 20:09 ; Start 05/02/17 at 15:45; Stop 06/01/17 at 15:44 Latanoprost (Xalatan 0.005% Op Soln) 1 drop QHS OU Last administered on 20:10; Start 03/26/17 at 21:00; Stop 05/24/17 at 20:59 Lidocaine (Lidoderm Patch) 1 patch DAILY TD Last administered on 04/11/17 11: 47; Start 03/27/17 at 09:00; Stop 04/26/17 at 08:59; Status DC Lorazepam (Ativan) 1 mg Q8HP PRN PO ANXIETY; Start 03/26/17 at 20:45; Stop 04/02 at 20:44; Status Cancel Magnesium Hydroxide (Milk Of Magnesia) 30 ml DAILYPRN PRN PO CONSTIPATION Last administered on 04/18/17 19:15; Start 03/26/17 at 17:30; Stop 04/24/17 at 11:17; Status DC Magnesium Hydroxide (Milk Of Magnesia) 30 ml DAILYPRN PRN PO CONSTIPATION Last administered on 05/04/17 11:47; Start 04/26/17 at 23:15; Stop 05/26/17 at 23:14 Miscellaneous (Unresolved Clarification Entry) SEE LABEL COMMENTS UNRESOLVED XX ; Start 04/29/17 at 00:01; Stop 04/30/17 at 14:04; Status DC Miscellaneous (Unresolved Clarification Entry) SEE LABEL COMMENTS UNRESOLVED XX ; Start 04/30/17 at 00:01; Stop 05/03/17 at 09:08; Status DC Miscellaneous (Unresolved Clarification Entry) SEE LABEL COMMENTS UNRESOLVED XX ; Start 04/26/17 at 00:01; Stop 04/26/17 at 10:46; Status DC Nicotine (Nicorette) 4 mg Q6HP PRN PO NICOTINE WITHDRAWAL Last administered on 04/20/17 13:51; Start 03/30/17 at 20:45; Stop 04/25/17 at 13:08; Status DC Non-Formulary Medication ( See Comment Field Below ) REMOVE LIDODERM PATCH DAILY@21 XX Last administered on 03/28/17 21:19; Start 03/27/17 at 21:00; Stop 04/26/17 at 10:48; Status DC Non-Formulary Medication ( See Comment Field Below ) SEE LABEL COMMENTS DAILY XX ; Start 04/18/17 at 09:00; Stop 04/18/17 at 10:21; Status DC Non-Formulary Medication ( See Comment Field Below ) SEE LABEL COMMENTS SECTION 1T@10 XX Last administered on 04/20/17 10:05; Start 04/20/17 at 10:00; Stop 04/20/17 at 23:59; Status DC Non-Formulary Medication ( See Comment Field Below ) offer until accepted. 1T@10 ID ; Start 04/20/17 at 10:00; Stop 05/17/17 at 09:59; Status UNV Nystatin (Mycostatin Powder, Nystop) DAILY TOP Last administered on 03/30/17 22:59; Start 03/30/17 at 09:00; Stop 04/29/17 at 08:59; Status DC Perphenazine (Trilafon) 4 mg BID PO Last administered on 04/05/17 20:59; Start 03/27/17 at 09:00; Stop 04/05/17 at 23:59; Status DC Perphenazine (Trilafon) 6 mg QHS PO Last administered on 05/07/17 20:09; Start 04/11/17 at 21:00; Stop 05/11/17 at 20:59 Perphenazine (Trilafon) 8 mg QHS PO Last administered on 04/10/17 21:13; Start 04/06/17 at 21:00; Stop 04/11/17 at 09:54; Status DC Trazodone HCl (Desyrel) 50 mg QHSP PRN PO INSOMNIA; Start 03/26/17 at 17:30; Stop 05/24/17 at 17:29 Tuberculin PPD (Aplisol, Ppd) 5 units 1T@10 ID Last administered on 04/18/17 13 :23; Start 04/18/17 at 10:00; Stop 04/18/17 at 23:59; Status DC Valproic Acid (Depakene) 250 mg QAM PO Last administered on 05/08/17 09:18; Start 05/02/17 at 09:00; Stop 06/01/17 at 08:59; Status Future hold Valproic Acid (Depakene) 500 mg QAM PO Last administered on 04/12/17 09:17; Start 03/27/17 at 09:00; Stop 04/17/17 at 17:50; Status DC Valproic Acid (Depakene) 500 mg QHS PO Last administered on 05/07/17 20:09; Start 05/01/17 at 21:00; Stop 05/31/17 at 20:59 Valproic Acid (Depakene) 750 mg QHS PO Last administered on 5/25/17at 20:32; Start 03/26/17 at 21:00; Stop 04/17/17 at 17:50; Status DC Allergies Coded Allergies: Mirella (Verified Allergy, Unknown, 02/10/08) Idania Abrams May 08, 2017 13:58
[2017-05-08] MEDS ORDERED: HALOPERIDOL 5 MG TAB PO PRN (14:00)
[2017-05-08 18:44] VITALS: BP 120/66
[2017-05-08] MEDS: LATANOPROST 0.005% OPHTH SOLN 2.5 ML OU SCH (21:00)
[2017-05-08] MEDS: PERPHENAZINE 2 MG TAB PO SCH (21:55)
[2017-05-09 06:23] VITALS: BP 124/62
[2017-05-09] MEDS: CHLORHEXIDINE GLUCONATE 0.12 % 15ML UDC (PERIDEX ORAL RINSE) MT SCH (09:55)
[2017-05-09] MEDS: VALPROIC ACID 250 MG CAP PO SCH (09:55)
[2017-05-09] MEDS: FLUoxetine 10 MG CAP PO SCH (09:55)
--- NOTE | 2017-05-09 11:18 | MHDSPDOC ---
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 HTN 3. hyperlipidemia 4. Glaucoma 5. Joint pain, chronic 6. Nicotine dependence in remission 7. Poor dentition 8. h/o Pulmonary Embolis in May 2016 REASON FOR ADMISSION: Pt was on the unit from 03/11/17 to 03/21/17. Discharged on and returned on 03/26/17 due to arguments with staff at the [facility]. Pt was paranoid and suspicious toward the staff and made several allegations of misconduct regarding them and refused to return. Brandt is on AOT orders for outpatient treatment. Pt was also a patient with us from 02/07/17 to 02/18/17. Jann has not been our patient since March 26, 2017- 41 days. During that time he abruptly stopped his Depakene stating he felt over medicated. His depakote level was 74.0 He was doing pretty well. He quickly became more impulsive with pressured, rapid speech, rapid pacing and increasing paranoia. He refused to resume depakote until 05/02/17 but at half the previous dose. He has failed to return to baseline. Brandt has a long h/o treatment noncompliance. he has been tried on Risperdol Consta and Invega Sustenna. Ux Manager did not know him at that time. He stopped both due to concerns over weight gain. However in 2015 he only needed 2 inpatient admissions and in 2014 he only had 3 inpatient admissions. In 2013 he had 1 and in 2012 he had 2. He is becoming more dependent on the hospital setting as he tries to maintain control over what medications he will or will not take. As a result his behavior is impulsive, he demonstrates FOI, tangental thought process, circular thinking, and rigid thinking. He has successfully overcome substance abuse issues with alcohol and cannabis in the past. He experimented with psychedelic drugs in . He is currently free from nicotine with some intermittent nicotine cravings. He becomes obsessed with his personal health, attributing his mental problems to physical problems, such as low iron (his is wnl) or fatty liver (which he does have). He is trying to maintain a Vegan diet which is difficult to do in this setting and frequently becomes angry with dietary over his food choices. The longer Brandt remains on the unit the more we have seen him decompensate. He has become more suspicious of the food and drinks here. He becomes suspicious of other patients and staff. He saw a TLS worker on the unit for another patient and this created a great deal of internal stress for him and later in the day he was yelling about how no one cares about his feelings. He had argued with this TLS staff person and said he wanted to apologize but the staff was busy with the patient they were here to see and did not have time to meet with Brandt. He perseverates on things and creates a reality for himself that is totally inappropriate and irrelevant. In general Brandt keeps to himself, attends programming regularly and tries to help others. He is intelligent but mistakes many clues from the environment. He becomes involved in other patients care and causes problems yelling about them on the unit. Brandt attends well to hygiene needs and is very concerned about his appearance and his weight. During the numerous admissions he has had here, the staff cannot recall one single visitor for him. He states he has a son and a brother in the area. CONSULTANTS INVOLVED: lab, medicine, psychiatry. TREATMENT AND PROGRESS ON THE UNIT : Jann received Abilify Maintena on 04/14/17, 400 mg IM. He is due for his monthly injection on 05/15 however as I have observed him he appears to become more agitated and impulsive 5-7 days after the injection. He reports always having some sort of noise in his head, such as music or voices that never really goes away. He has threatened suicide but has not made any recent attempts. No h/o self-mutilation. No HI. He does not own or have access to weapons or firearms. 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 In general Brandt has a very negative outlook of the world and the people in [place] and wants to be left alone to live on his own, go to school, work a job in concessions and do what he enjoys. He has told us that he gets very upset by doctors who tell him what meds he should be taking as "I know my body better than anyone else". HOSPITAL COURSE: Uneventful for the most part. Brandt is not a violent person and follows unit rules and protocols. It is very difficult to treat him as he refuses to take medications that would be more beneficial to him. This week he requested to resume Haldol decanoate as he is aware service writer is not in agreement with the Maintena. However, service writer would prefer he resume Sustenna which is less neurotoxic but Brandt refuses. [employer]'s are not able to go to court for treatment over objection in [facility]. MD's feel they would loose as pt is willing to take and does take other meds, just not what he needs. We have seen him go from a rather euthymic mood to one that is mostly dysphoric. His sleep is adequate. He is not prone to panic, but has some mild anxiety about his future placement, the courts and his medications. Brandt can be very personable and polite but also very stubborn. Brandt has an endless list of somatic complaints and tries to connect what he perceives to be wrong as an explanation for his thinking or actions. He can often present as very entitled. Overall, he does not believe he has a mental illness. DISCHARGE ASSESSMENT: Pt would benefit from Invega Sustenna on May 15, 234 mg to start followed by 156 in 4-8 days. Another injection of 156 mg 35 days after the 234 mg injection. Pt is currently taking Trilafon which he wants to take but no benefit seen with this. He does well on Depakote at about 1500 mg daily in divided doses. He enjoys a prn of Atarax 25 mg now and then. He has also recently requested and received prn Haldol 5 mg po for agitation. This has helped to calm him. MENTAL STATUS EXAMINATION ON DISCHARGE: Patient is a 42-year old male, who is dressed in jeans, large shirt and sneakers , long hair, poor eye contact. Speech is spontaneous Language skills are intact Thought processes including: paranoid delusions which vary, suspicions, tangetial, Loose associations. Thought content: self-focused Abstract reasoning, and computation: good Description of associations: loose. Description of abnormal or psychotic thoughts: will threaten suicide if discharged from the hospital, admits to daily auditory hallucinations, denies command hallucinations. Delusions of a paranoid nature are frequently noted Judgment: limited Insight: poor Orientation to person, place, time and situation. Recent and remote memory: intact Attention span and concentration: impaired due to internal preoccupation with thoughts. Fund of knowledge: impaired by illness and denial of illness and need for treatment. Mood: dysphoric Affect: congruent. MEDICATIONS ON DISCHARGE: -trilafon 6 mg at hs - (eliminate) -abilify maintena 400 mg IM Q 4 weeks (replace with Invega Sustenna) -fluoxetine 10 mg should be dc'd and replaced with sertraline or Paxil or Effexor (pt insists on prozac which service writer reduced from 20 mg to 10 mg this admission) -depakene 250 mg in a.m. and 500 mg at hs - doses are too low -haldol 5 mg prn for agitation -trazodone 50 mg prn for insomnia - uses intermittently. PLAN/FOLLOWUP ARRANGEMENTS: transfer to [facility] for long-term treatment. The amount of time spent in the coordination of care for this patient was approximately 50 minutes. Vital Signs/I&Os Vital Signs Date Time Temp Pulse Resp B/P (MAP) Pulse Ox O2 Delivery O2 Flow Rate FiO2 05/09/17 06:23 97.9 75 18 124/62 (82) Room Air Medications Scheduled Chlorhexidine Gluconate (Chlorhexadine Gluconate) 0.12 % Keyonna, 15 ML MT TID, ( Reported) Travoprost (Travatan Z) 50 Drop/2.5 Ml Soln, 1 DROP OU QHS, (Reported) Valproic Acid (Valproic Acid) 250 Mg Cap, 500 MG PO QAM, (Reported) Valproic Acid (Valproic Acid) 250 Mg Cap, 750 MG PO QHS, (Reported) Scheduled PRN Hydroxyzine Pamoate (Hydroxyzine Pamoate) 25 Mg Cap, 25 MG PO DAILY PRN for ANXIETY, (Reported) Allergies Coded Allergies: Mirella (Verified Allergy, Unknown, 02/10/08) Idania Abrams May 09, 2017 11:18
--- NOTE | 2017-05-09 12:20 | MHIPNPDOC ---
[facility] Progress Note Progress Note DATE OF SERVICE: 05/09/17 HISTORY: /Administrative hearing VITAL SIGNS: See below. NEW TEST RESULTS: na CURRENT MEDICATIONS: See below. MENTAL STATUS EXAMINATION: Patient is a 42 year old male, who is wearing hospital attire, long hair in pony tail, poor eye contact, soft voice. Speech: Is clear, spontaneous. Language skills are intact Thought processes including: paranoid delusions, suspicious about his safety and wellbeing, Tangental Thought content: "I am holding the hospital responsible that I have a safe trip ". Abstract reasoning, and computation: concrete. Description of associations: loose. Description of abnormal or psychotic thoughts: "I am not releasing anything or signing anything until I get there." Judgment: limited Insight: poor Orientation: well oriented in all spheres. Recent and remote memory: intact, influenced by delusions Attention span and concentration: varies from good to impaired with internal thoughts Fund of knowledge: average to poor Mood: dysphoric. Affect: congruent DIAGNOSES: ASSESSMENT:pt declined to attend hearing about his transfer to [facility]. We leaned today that they have a bed for him today. He signed forms a & b for transfer yesterday. His german teacher, Latoya attended on his behalf. Her main concern is what can [facility] do for him that we cannot. Treatment over objection is one thing. He has been here way over a typical LOS and has rejected every discharge plan due to his increasing fear and paranoia. He will only take the medications he deems acceptable which is allowed under the AOT. MANAGEMENT PLAN: pt will be transferred to the facility in [facility] for long-term treatment. It is hoped [facility] will become more rationale and allow medication adjustments that will make him less rigid in his thinking so he is more compatible with others, less suspicious, more at ease and less tense and less disturbance in his thought process. Recommended changes are in the discharge summary. TIME SPENT: 35 minutes. Vital Signs Vital Signs Date Time Temp Pulse Resp B/P (MAP) Pulse Ox O2 Delivery O2 Flow Rate FiO2 05/09/17 06:23 97.9 75 18 124/62 (82) Room Air Current Medications Current Medications Acetaminophen (Tylenol Tab) 650 mg Q6HP PRN PO HEADACHE or DISCOMFORT Last administered on 05/01/17t 13:10; Start 03/26/17 at 17:30; Stop 05/24/17 at 17:29 Al Hydrox/Mg Hydrox/Simethicone (Mylanta) 30 ml Q4HP PRN PO HEARTBURN/ INDIGESTION Last administered on 04/12/17 18:31; Start 03/26/17 at 17:30; Stop 04/24/17 at 11:17; Status DC Amoxicillin/ Clavulanate Potassium (Augmentin) 875 mg BID PO Last administered on 04/27/17 21:55; Start 04/19/17 at 09:00; Stop 04/27/17 at 23:59; Status DC Aripiprazole (AbiLIFY) 5 mg QHS PO Last administered on 03/26/17 21:39; Start 03/26/17 at 21:00; Stop 03/27/17 at 08:55; Status DC Aripiprazole (Abilify Maintena) 400 mg Q30D IM Last administered on 04/14/17 08:40; Start 04/14/17 at 09:00; Stop 05/14/17 at 08:59 Chlorhexidine Gluconate (Peridex Oral Rinse) 15 ml TID MT Last administered on 05/09/17 09:55; Start 03/26/17 at 21:00; Stop 05/24/17 at 20:59 Fluoxetine HCl (PROzac) 10 mg QAM PO Last administered on 05/09/17 09:55; Start 04/26/17 at 09:00; Stop 05/26/17 at 08:59 Fluoxetine HCl (PROzac) 20 mg DAILY PO Last administered on 04/25/17 09:01; Start 03/27/17 at 09:00; Stop 04/25/17 at 17:14; Status DC Haloperidol (Haldol) 5 mg Q8HP PRN PO AGITATION Last administered on 05/08/17 13:54; Start 05/08/17 at 14:00; Stop 06/07/17 at 13:59 Home Med (Med Rec Complete!) ASDIRECTED XX ; Start 03/26/17 at 18:30; Stop at 18:30; Status DC Hydroxyzine HCl (Atarax) 25 mg Q8HP PRN PO ANXIETY Last administered on 13:49; Start 03/26/17 at 20:45; Stop 05/24/17 at 20:44 Ibuprofen (Advil) 400 mg Q6HP PRN PO PAIN Last administered on 05/07/17 20:09 ; Start 05/02/17 at 15:45; Stop 06/01/17 at 15:44 Latanoprost (Xalatan 0.005% Op Soln) 1 drop QHS OU Last administered on 20:10; Start 03/26/17 at 21:00; Stop 05/24/17 at 20:59 Lidocaine (Lidoderm Patch) 1 patch DAILY TD Last administered on 04/11/17 11: 47; Start 03/27/17 at 09:00; Stop 04/26/17 at 08:59; Status DC Lorazepam (Ativan) 1 mg Q8HP PRN PO ANXIETY; Start 03/26/17 at 20:45; Stop 04/02 at 20:44; Status Cancel Magnesium Hydroxide (Milk Of Magnesia) 30 ml DAILYPRN PRN PO CONSTIPATION Last administered on 04/18/17 19:15; Start 03/26/17 at 17:30; Stop 04/24/17 at 11:17; Status DC Magnesium Hydroxide (Milk Of Magnesia) 30 ml DAILYPRN PRN PO CONSTIPATION Last administered on 05/04/17 11:47; Start 04/26/17 at 23:15; Stop 05/26/17 at 23:14 Miscellaneous (Unresolved Clarification Entry) SEE LABEL COMMENTS UNRESOLVED XX ; Start 04/29/17 at 00:01; Stop 04/30/17 at 14:04; Status DC Miscellaneous (Unresolved Clarification Entry) SEE LABEL COMMENTS UNRESOLVED XX ; Start 04/30/17 at 00:01; Stop 05/03/17 at 09:08; Status DC Miscellaneous (Unresolved Clarification Entry) SEE LABEL COMMENTS UNRESOLVED XX ; Start 04/26/17 at 00:01; Stop 04/26/17 at 10:46; Status DC Nicotine (Nicorette) 4 mg Q6HP PRN PO NICOTINE WITHDRAWAL Last administered on 04/20/17 13:51; Start 03/30/17 at 20:45; Stop 04/25/17 at 13:08; Status DC Non-Formulary Medication ( See Comment Field Below ) REMOVE LIDODERM PATCH DAILY@21 XX Last administered on 03/28/17 21:19; Start 03/27/17 at 21:00; Stop 04/26/17 at 10:48; Status DC Non-Formulary Medication ( See Comment Field Below ) SEE LABEL COMMENTS DAILY XX ; Start 04/18/17 at 09:00; Stop 04/18/17 at 10:21; Status DC Non-Formulary Medication ( See Comment Field Below ) SEE LABEL COMMENTS SECTION 1T@10 XX Last administered on 04/20/17 10:05; Start 04/20/17 at 10:00; Stop 04/20/17 at 23:59; Status DC Non-Formulary Medication ( See Comment Field Below ) offer until accepted. 1T@10 ID ; Start 04/20/17 at 10:00; Stop 05/17/17 at 09:59; Status UNV Nystatin (Mycostatin Powder, Nystop) DAILY TOP Last administered on 03/30/17 22:59; Start 03/30/17 at 09:00; Stop 04/29/17 at 08:59; Status DC Perphenazine (Trilafon) 4 mg BID PO Last administered on 04/05/17 20:59; Start 03/27/17 at 09:00; Stop 04/05/17 at 23:59; Status DC Perphenazine (Trilafon) 6 mg QHS PO Last administered on 05/08/17 21:55; Start 04/11/17 at 21:00; Stop 05/11/17 at 20:59 Perphenazine (Trilafon) 8 mg QHS PO Last administered on 04/10/17 21:13; Start 04/06/17 at 21:00; Stop 04/11/17 at 09:54; Status DC Trazodone HCl (Desyrel) 50 mg QHSP PRN PO INSOMNIA; Start 03/26/17 at 17:30; Stop 05/24/17 at 17:29 Tuberculin PPD (Aplisol, Ppd) 5 units 1T@10 ID Last administered on 04/18/17 13 :23; Start 04/18/17 at 10:00; Stop 04/18/17 at 23:59; Status DC Valproic Acid (Depakene) 250 mg QAM PO Last administered on 05/09/17 09:55; Start 05/02/17 at 09:00; Stop 06/01/17 at 08:59; Status Future hold Valproic Acid (Depakene) 500 mg QAM PO Last administered on 04/12/17 09:17; Start 03/27/17 at 09:00; Stop 04/17/17 at 17:50; Status DC Valproic Acid (Depakene) 500 mg QHS PO Last administered on 05/08/17 21:55; Start 05/01/17 at 21:00; Stop 05/31/17 at 20:59 Valproic Acid (Depakene) 750 mg QHS PO Last administered on 04/11/17 20:32; Start 03/26/17 at 21:00; Stop 04/17/17 at 17:50; Status DC Allergies Coded Allergies: Mirella (Verified Allergy, Unknown, 02/10/08) Idania Abrams May 09, 2017 12:20
== END 2017-05-09 14:23 | DRG 885 ==
LOC: M ED 14:26 → M ED INP 17:26 → M PSY 19:29
PROVIDERS: ADMIT Psychiatry & Neurology Psychiatry; ATTEND Psychiatry & Neurology Psychiatry
DX: F20.0 Paranoid schizophrenia (principal); I10 Essential (primary) hypertension; E78.5 Hyperlipidemia, unspecified; H40.9 Unspecified glaucoma; K21.9 Gastro-esophageal reflux disease without esophagitis; N40.0 Benign prostatic hyperplasia without lower urinary tract symptoms; M25.50 Pain in unspecified joint; G47.33 Obstructive sleep apnea (adult) (pediatric); K04.7 Periapical abscess without sinus; F17.210 Nicotine dependence, cigarettes, uncomplicated; Z86.711 Personal history of pulmonary embolism; Z79.899 Other long term (current) drug therapy; Z91.018 Allergy to other foods; Z91.14 Patient's other noncompliance with medication regimen

== ENCOUNTER 2019-04-30 12:25 | Emergency (ER) | payer MEDICARE, MEDICAID ==
[~2019-04-30] VITALS: Ht 167.6 cm; Wt 93.7 kg
[~2019-04-30 12:25] MED LIST changes: -/HALO5TAB PO; +CHLO0.12 SSP; +CHLO0.124 MT; -CHLO0.129 SSP; -DIVA250T PO; +DIVA250T67 PO; +FLOM0.4C39 PO; -FLOM5CAP PO; +FLUO20CA19 PO; -FLUO20CA9 PO; -GABA600T PO; +GABA600T4 PO; +HALO1TAB21 PO; -PROP1TAB29 PO; +PROP20TA72 PO; -RISP2TAB30 PO; +RISP2TAB32 PO; -RISP3TAB18 PO; +RISP3TAB20 PO; +TRAZ-252 PO; -TRAZ50TA4 PO; +VALP1CAP2 PO; +ZANT150T15 PO; -ZANT1TAB PO
[2019-04-30] MEDS ORDERED: GABA-843 PO (12:53)
[2019-04-30] MEDS ORDERED: TAMS1CAP17 PO (12:53)
[2019-04-30] MEDS ORDERED: CYCL5TAB PO (12:53)
[2019-04-30] MEDS ORDERED: ARIP1TAB PO (12:53)
[2019-04-30] MEDS ORDERED: DIVA250T67 PO (12:53)
[2019-04-30] MEDS ORDERED: DIVA500T94 PO (12:53)
[2019-04-30] MEDS ORDERED: ASPI81TA26 PO (12:53)
[2019-04-30] MEDS ORDERED: SERT-155 PO (12:53)
[2019-04-30] MEDS ORDERED: LATA0.0015 OP (12:53)
[2019-04-30] MEDS ORDERED: HALO5TA PO ×2 (12:53→12:54)
[2019-04-30] MEDS ORDERED: DOCU100C16 PO (12:53)
[2019-04-30] MEDS ORDERED: IBUP80TA PO (12:57)
[2019-04-30] MEDS ORDERED: NICO2GUM MT (12:57)
[2019-04-30] MEDS ORDERED: TRAZ-163 PO (12:57)
[2019-04-30] MEDS ORDERED: ACET650T15 PO (12:57)
[2019-04-30 13:51] LABS: HEMATOCRIT 44.8 % (42.0-52.0); HEMOGLOBIN 15.4 g/dl (13.5-17.5); MEAN CORPUSCULAR HEMOGLOBIN 29.8 pg (27.0-33.0); MEAN CORPUSCULAR HGB CONC 34.4 g/dl (32.0-36.5); MEAN CORPUSCULAR VOLUME 86.7 fl (80.0-96.0); PLATELET COUNT, AUTOMATED 257 10^3/uL (150-450); RED BLOOD COUNT 5.17 10^6/uL (4.30-6.10); WHITE BLOOD COUNT 10.6 10^3/uL (4.0-10.0)
[2019-04-30 14:16] LABS: AMPHETAMINES LEVEL URINE NEGATIVE (NEGATIVE); BARBITURATES URINE NEGATIVE (NEGATIVE); BENZODIAZEPINES URINE NEGATIVE (NEGATIVE); CANNABINOIDS URINE NEGATIVE (NEGATIVE); COCAINE METABOLITE URINE NEGATIVE (NEGATIVE); METHADONE URINE NEGATIVE (NEGATIVE); OPIATES URINE NEGATIVE (NEGATIVE); PHENCYCLIDINE URINE NEGATIVE (NEGATIVE)
[2019-04-30 14:24] LABS: ACETAMINOPHEN LEVEL < 2.0 UG/ML (10.0-30.0); ALT/SGPT 29 U/L (12-78); BILIRUBIN,DIRECT 0.1 MG/DL (0.0-0.2); BILIRUBIN,TOTAL 0.4 MG/DL (0.2-1.0); BLOOD UREA NITROGEN 11 MG/DL (7-18); CALCIUM LEVEL 8.5 MG/DL (8.5-10.1); CARBON DIOXIDE LEVEL 25 MEQ/L (21-32); CHLORIDE LEVEL 103 MEQ/L (98-107); CREATININE FOR GFR 0.75 MG/DL (0.70-1.30); ETHYL ALCOHOL (ETHANOL) < 0.003 % (0.000-0.010); GLOMERULAR FILTRATION RATE > 60.0 (>60); GLUCOSE, FASTING 88 MG/DL (70-100); SALICYLATE LEVEL 2.7 MG/DL (5.0-30.0); SODIUM LEVEL 136 MEQ/L (136-145); TOTAL PROTEIN 7.8 GM/DL (6.4-8.2)
[2019-04-30 16:19] VITALS: BP 131/65
== END 2019-04-30 16:20 | disposition home or self-care (01) ==
LOC: M ED 12:25
DX: F31.9 Bipolar disorder, unspecified (principal); Z79.899 Other long term (current) drug therapy; Z79.82 Long term (current) use of aspirin; Z91.018 Allergy to other foods
CPT/HCPCS: 36415; 80048; 80076; 80307; 84443; 85027; 99283; G0480

== ENCOUNTER 2021-12-12 23:15 | Emergency (ER) | payer MEDICARE, MEDICAID ==
[~2021-12-12] VITALS: Ht 167.6 cm; Wt 86.4 kg
[~2021-12-12 23:15] MED LIST changes: +ACET650T15 PO; +ARIP10TA32 PO; +ASPI81TA26 PO; +CYCL5TAB PO; +DIVA500T94 PO; +DOCU100C16 PO; +FLUO-96 PO; -FLUO20CA19 PO; +FLUO20CA22 PO; -FLUO20CA8 PO; -FLUP10TA PO; +FLUP10TA11 PO; +GABA-282 PO; +HALO5TAB33 PO; +IBUP1TAB5 PO; -IBUP40TA PO; +IBUP80TA PO; +LATA0.0015 OP; +NICO2GUM MT; -OMEP40CA2 PO; +OMEP40CA4 PO; +PERP4TAB31 PO; +RISP-10 PO; -RISP3TAB3 PO; +SERT50TA29 PO; -TAB-TAB PO; +TAB-TAB2 PO; +TAMS1CAP17 PO; +TRAZ-257 PO
[2021-12-13 00:25] LABS: HEMATOCRIT 44.5 % (42.0-52.0); HEMOGLOBIN 14.8 g/dl (13.5-17.5); MEAN CORPUSCULAR HGB CONC 33.3 g/dl (32.0-36.5); MEAN CORPUSCULAR VOLUME 84.1 fl (80.0-96.0); PLATELET COUNT, AUTOMATED 257 10^3/uL (150-450); RED BLOOD COUNT 5.29 10^6/uL (4.30-6.10)
[2021-12-13 00:28] LABS: AMPHETAMINES LEVEL URINE NEGATIVE (NEGATIVE); BARBITURATES URINE NEGATIVE (NEGATIVE); BENZODIAZEPINES URINE NEGATIVE (NEGATIVE); CANNABINOIDS URINE NEGATIVE (NEGATIVE); COCAINE METABOLITE URINE NEGATIVE (NEGATIVE); METHADONE URINE NEGATIVE (NEGATIVE); OPIATES URINE NEGATIVE (NEGATIVE); PHENCYCLIDINE URINE NEGATIVE (NEGATIVE)
[2021-12-13 00:37] LABS: ACETAMINOPHEN LEVEL < 2.0 UG/ML (10.0-30.0); ALT/SGPT 22 U/L (12-78); BILIRUBIN,DIRECT < 0.1 MG/DL (0.0-0.2); BILIRUBIN,TOTAL 0.2 MG/DL (0.2-1.0); BLOOD UREA NITROGEN 10 MG/DL (7-18); CALCIUM LEVEL 8.4 MG/DL (8.5-10.1); CARBON DIOXIDE LEVEL 24 MEQ/L (21-32); CHLORIDE LEVEL 104 MEQ/L (98-107); CREATININE FOR GFR 0.71 MG/DL (0.70-1.30); ETHYL ALCOHOL (ETHANOL) 0.149 % (0.000-0.010); GLOMERULAR FILTRATION RATE > 60.0 (>60); GLUCOSE, FASTING 116 MG/DL (70-100); POTASSIUM SERUM 3.6 MEQ/L (3.5-5.1); SALICYLATE LEVEL 2.4 MG/DL (5.0-30.0); SODIUM LEVEL 137 MEQ/L (136-145); TOTAL PROTEIN 7.1 GM/DL (6.4-8.2)
[2021-12-13] MEDS ORDERED: IBUP200T46 PO (08:35)
[2021-12-13] MEDS ORDERED: ZOLO100T PO (08:36)
[2021-12-13] MEDS ORDERED: LAMO100T3 PO (08:40)
[2021-12-13] MEDS ORDERED: GERI8.6T PO (08:40)
[2021-12-13] MEDS ORDERED: PURE500C5 PO (08:40)
[2021-12-13] MEDS ORDERED: OMEP-173 PO (08:40)
[2021-12-13] MEDS ORDERED: HALO10AM SC (08:40)
[2021-12-13] MEDS ORDERED: HOME MED LIST COMPLETE! XX SCH (08:45)
[2021-12-13] MEDS ORDERED: SERTRALINE 100 MG TAB PO ONE (14:05)
[2021-12-13] MEDS ORDERED: DOCUSATE SODIUM 100MG CAPSULE PO ONE (14:10)
[2021-12-13] MEDS ORDERED: lamoTRIgine 100MG TAB PO ONE (14:10)
[2021-12-13] MEDS ORDERED: ASPIRIN 325 MG TAB PO ONE (14:10)
[2021-12-13] MEDS ORDERED: ASPIRIN 81MG ENTERIC TABLET PO ONE (14:20)
[2021-12-14] MEDS ORDERED: IBUPROFEN 600MG TAB PO ONE (01:35)
[2021-12-14 07:23] VITALS: BP 122/75
== END 2021-12-14 07:28 | disposition short-term general hospital (02) ==
LOC: M ED 23:15
DX: R45.851 Suicidal ideations (principal); F29 Unspecified psychosis not due to a substance or known physiological condition; E03.9 Hypothyroidism, unspecified; F17.210 Nicotine dependence, cigarettes, uncomplicated; Z91.018 Allergy to other foods

== ENCOUNTER 2023-02-16 15:11 | Emergency (ER) | payer MEDICAID, MEDICARE ==
[~2023-02-16] VITALS: Ht 167.6 cm; Wt 88.0 kg
[~2023-02-16 15:11] MED LIST changes: +ASCO500C3 PO; +GERI8.6T PO; +HALO10AM SC; +IBUP200T46 PO; +LAMO100T3 PO; -LATU40TA PO; +LATU40TA2 PO; -LATU80TA PO; +LATU80TA2 PO; +OMEP-173 PO; +PERP4TAB30 PO; -PERP4TAB31 PO; +ZOLO100T PO
[2023-02-16] MEDS ORDERED: BENZ0.5T23 (15:33)
[2023-02-16] MEDS ORDERED: ASPI81CH33 (15:33)
[2023-02-16] MEDS ORDERED: GABA-1171 (15:33)
[2023-02-16] MEDS ORDERED: PERP16TA7 (15:33)
[2023-02-16] MEDS ORDERED: METF500T13 (15:33)
[2023-02-16] MEDS ORDERED: PERP8TAB25 (15:33)
[2023-02-16] MEDS ORDERED: VITA200010 (15:33)
[2023-02-16] MEDS ORDERED: SERT50TA29 (15:33)
[2023-02-16] MEDS ORDERED: CYCL5TAB (15:33)
[2023-02-16] MEDS ORDERED: LATA0.0015 (15:33)
[2023-02-16 18:21] VITALS: BP 127/78
== END 2023-02-16 18:45 | disposition home or self-care (01) ==
LOC: M ED 15:11
DX: F22 Delusional disorders (principal); F20.9 Schizophrenia, unspecified; K21.9 Gastro-esophageal reflux disease without esophagitis; G89.4 Chronic pain syndrome; N40.0 Benign prostatic hyperplasia without lower urinary tract symptoms; Z86.711 Personal history of pulmonary embolism; Z79.899 Other long term (current) drug therapy; Z79.82 Long term (current) use of aspirin; Z79.84 Long term (current) use of oral hypoglycemic drugs

== ENCOUNTER 2025-10-23 12:33 | Inpatient (IN) | payer MEDICARE, MEDICAID ==
[~2025-10-23] VITALS: Ht 167.6 cm; Wt 86.0 kg
[~2025-10-23 12:33] MED LIST changes: -ABIL400I IM; +ACET-1515 PO; -ACET650T15 PO; -ARIP10TA32 PO; +ARIP10TA63 PO; +ARIP400S IM; +ASPI81CH33; +BENZ0.5T2; -CYCL5TAB PO; +CYCL5TAB4; +CYCL5TAB4 PO; +DEPA250T PO; -DEPA250T2 PO; -DEPA250T32 PO; +DIVA-41 PO; +DIVA-65 PO; -DIVA500T94 PO; -FLOM0.4C39 PO; +FLUO-365 PO; -FLUO20CA22 PO; +GABA-1171; +GABA-1172 PO; +GABA-1490 PO; -GABA-282 PO; -GABA600T4 PO; -GERI8.6T PO; +LATA0.0015; +METF500T13; +PERP16TA7; +PERP8TAB25; -PROZ20CA11 PO; +PROZ20CA25 PO; -RISP-10 PO; +RISP-39 PO; -RISP3TAB20 PO; +RISP3TAB77 PO; +SENN-193 PO; +SERT50TA29; +TAMS-18 PO; +VITA200010
[2025-10-24] MEDS ORDERED: SYMB16INH INH (10:43)
[2025-10-24] MEDS ORDERED: CYCL-707 PO (10:43)
[2025-10-24] MEDS ORDERED: VENTAER INH (10:43)
[2025-10-24] MEDS ORDERED: PERP8TAB25 PO (10:43)
[2025-10-24] MEDS ORDERED: XALA0.007 OU (10:43)
[2025-10-24] MEDS ORDERED: IBUP1TAB7 PO (10:43)
[2025-10-24] MEDS ORDERED: GABA-1171 PO (10:43)
[2025-10-24] MEDS ORDERED: NICO2GUM5 PO (10:43)
[2025-10-24] MEDS ORDERED: ACET-683 PO (10:43)
[2025-10-24] MEDS ORDERED: HOME MED LIST COMPLETE! XX SCH (10:45)
[2025-10-24] MEDS: ACETAMINOPHEN 325 MG TAB PO PRN (12:21)
[2025-10-24] MEDS: IBUPROFEN 400 MG TAB PO PRN (13:47)
[2025-10-24] MEDS: CYCLOBENZAPRINE 10 MG TABLET PO PRN (15:21)
[2025-10-24] MEDS: TAMSULOSIN 0.4 MG CAP PO SCH (15:22)
[2025-10-24] MEDS: GABAPENTIN 100 MG CAP PO SCH (15:23)
[2025-10-24] MEDS: NICOTINE POLACRILEX 2 MG GUM PO PRN (15:23)
[2025-10-24 15:24] VITALS: BP 135/81; TEMP 97.4; O2SAT 97
[2025-10-24] MEDS: traZODone 50 MG TAB PO PRN (19:45)
[2025-10-24] MEDS: LORazepam 1 MG TAB PO PRN (19:46)
[2025-10-24] MEDS: LATANOPROST 0.005% OPHTH SOLN 2.5 ML OU SCH (21:11)
[2025-10-24] MEDS: SYMBICORT 160/4.5MCG INHALER 6GM INH SCH (21:11)
[2025-10-25 15:27] VITALS: BP 140/88; TEMP 97.9; O2SAT 99
[2025-10-26 06:28] VITALS: BP 133/95; TEMP 97; O2SAT 96
[2025-10-26] MEDS: PERPHENAZINE 2 MG TAB PO SCH (08:10)
[2025-10-26 18:23] VITALS: BP 143/86; TEMP 97.9
[2025-10-27 06:36] VITALS: BP 100/59; TEMP 97.6; O2SAT 98
[2025-10-27] MEDS: SERTRALINE HCL 50 MG TAB PO SCH (09:20)
[2025-10-27 15:21] VITALS: BP 118/74; TEMP 97.3; O2SAT 99
[2025-10-28 06:53] VITALS: BP 118/74; TEMP 97.3; O2SAT 99
[2025-10-28 15:13] VITALS: BP 122/70; TEMP 97.8; O2SAT 100
[2025-10-29] MEDS: MAALOX 30 ML SUSP *UDC PO PRN (18:11)
[2025-10-30 06:30] VITALS: BP 118/64; TEMP 97.5; TEMP 97.8; O2SAT 97
[2025-10-30 14:37] VITALS: BP 132/85; TEMP 97.7; O2SAT 100
[2025-10-30 21:19] VITALS: BP 132/85; TEMP 97.7; O2SAT 100
[2025-10-31 06:35] VITALS: BP 125/72; TEMP 97.7; O2SAT 94
[2025-11-01 06:39] VITALS: BP 107/60; TEMP 97.7; O2SAT 97
[2025-11-01] MEDS: PERPHENAZINE 2 MG TAB PO SCH (09:00)
[2025-11-01] MEDS: DIVALPROEX 250 MG TAB PO SCH (09:00)
[2025-11-01] MEDS: VANICREAM MOISTURIZING SKIN CREAM 113GM TUBE TOP SCH (20:21)
[2025-11-01] MEDS: OLANZapine 5 MG TAB PO SCH (20:26)
[2025-11-02] MEDS: MOM 30 ML SUSPENSION UDC PO PRN (09:13)
[2025-11-02] MEDS: DIVALPROEX 500 MG TAB PO SCH (20:51)
[2025-11-03 15:19] VITALS: BP 141/79; TEMP 97.4; O2SAT 98
[2025-11-03] MEDS: IBUPROFEN 600 MG TAB PO PRN (23:01)
[2025-11-04 06:37] VITALS: BP 120/57; TEMP 98.4; O2SAT 97
[2025-11-04] MEDS: NICOTINE 21 MG/24 HR 1 EA TRANSDERMAL TD SCH (15:31)
[2025-11-04] MEDS: PERPHENAZINE 2 MG TAB PO SCH ×2 (15:44→20:48)
[2025-11-04] MEDS: OLANZapine 5 MG TAB PO SCH (15:46)
[2025-11-04 15:47] VITALS: BP 144/84; TEMP 97.9; O2SAT 99
[2025-11-04] MEDS: NICOTINE POLACRILEX 2 MG GUM PO PRN (16:42)
[2025-11-04] MEDS: DIVALPROEX 250 MG TAB PO SCH (20:49)
[2025-11-04] MEDS ORDERED: OLANZapine 5 MG TAB PO SCH (21:00)
[2025-11-05] MEDS: IBUPROFEN 600 MG TAB PO PRN (00:14)
[2025-11-05 06:29] VITALS: BP 101/59; TEMP 97.2; O2SAT 95
[2025-11-05] MEDS: ALBUTEROL 90 MCG/ACT 8 GM HFA INHALER INH PRN (14:23)
[2025-11-05] MEDS: IBUPROFEN 800 MG TAB PO PRN (20:47)
[2025-11-05] MEDS: MOM 30 ML SUSPENSION UDC PO PRN (22:07)
[2025-11-06 06:11] VITALS: BP 127/77; TEMP 97.6; O2SAT 97
[2025-11-07 13:32] VITALS: BP 118/69; TEMP 97.3; O2SAT 99
[2025-11-08] MEDS: TUBERCULIN PPD 5 UNITS/0.1 ML ID ONE (14:40)
[2025-11-08] MEDS: OLANZapine 10 MG TAB PO SCH (22:37)
[2025-11-09 15:10] VITALS: BP 136/75; TEMP 98; O2SAT 100
[2025-11-09 16:35] VITALS: BP 109/66; TEMP 97.6; O2SAT 96
[2025-11-10] MEDS: PPD DOCUMENTATION ENTRY MISC XX SCH (14:25)
[2025-11-10 16:25] VITALS: BP 123/76; TEMP 97.6; O2SAT 99
[2025-11-11 06:27] VITALS: BP 141/77; TEMP 97; O2SAT 98
[2025-11-11 16:10] VITALS: BP 158/86; TEMP 98.1; O2SAT 100
[2025-11-12 06:27] VITALS: BP 116/65; TEMP 97; O2SAT 98
[2025-11-13 23:04] VITALS: BP 116/65; TEMP 97; O2SAT 98
[2025-11-14 06:27] VITALS: BP 122/72; TEMP 97.4; O2SAT 96
[2025-11-14 15:26] VITALS: BP 126/78; TEMP 97.9; O2SAT 99
[2025-11-15 06:26] VITALS: BP 110/60; TEMP 97.6; O2SAT 97
[2025-11-15 16:24] VITALS: BP 110/76; TEMP 97.9; O2SAT 99
[2025-11-16] MEDS ORDERED: GABA-1171 PO (08:20)
[2025-11-16] MEDS ORDERED: PERP16TA7 PO (08:20)
[2025-11-16] MEDS ORDERED: NICO2GUM PO (08:20)
[2025-11-16] MEDS ORDERED: PERP8TAB25 PO (08:20)
[2025-11-16] MEDS ORDERED: DIVA-65 PO (08:20)
[2025-11-16] MEDS ORDERED: OLAN1TAB20 PO (08:20)
== END 2025-11-16 12:15 | disposition home or self-care (01) | DRG 885 ==
LOC: M ED 12:33 → M ED INP 14:11 → M PSY 15:12
PROVIDERS: ADMIT Psychiatry & Neurology Addiction Psychiatry; ATTEND General Practice
DX: F25.0 Schizoaffective disorder, bipolar type (principal); R45.851 Suicidal ideations; J45.909 Unspecified asthma, uncomplicated; G89.29 Other chronic pain; M54.9 Dorsalgia, unspecified; G62.9 Polyneuropathy, unspecified; N40.0 Benign prostatic hyperplasia without lower urinary tract symptoms; F12.20 Cannabis dependence, uncomplicated; R45.850 Homicidal ideations; F17.210 Nicotine dependence, cigarettes, uncomplicated; F41.9 Anxiety disorder, unspecified; Z91.51 Personal history of suicidal behavior; Z56.0 Unemployment, unspecified; Z88.8 Allergy status to other drugs, medicaments and biological substances; Z79.899 Other long term (current) drug therapy; Z91.018 Allergy to other foods; Z88.5 Allergy status to narcotic agent